=== PATIENT | female | born 1975 | race Caucasian/White ===

== ENCOUNTER 2021-09-14 13:31 | Inpatient (IN) | payer OTHER ==
[~2021-09-14] VITALS: Ht 154.9 cm; Wt 82.6 kg
[2021-09-14 13:56] LABS: BASOPHILS ABSOLUTE AUTO 0.01 K/mm3 (0.00-0.23); BASOPHILS PERCENT AUTO 0 % (0-2); EOSINOPHILS ABSOLUTE AUTO 0.19 K/mm3 (0.00-0.68); EOSINOPHILS PERCENT AUTO 2 % (0-6); Hematocrit 39.1 % (33.0-51.0); Hemoglobin 13.6 g/dL (11.5-16.0); IMMATURE GRAN ABSOLUTE AUTO 0.05 K/mm3 (0.00-0.10); IMMATURE GRAN PERCENT AUTO 1 % (0-1); LYMPHOCYTES ABSOLUTE AUTO 2.21 K/mm3 (0.84-5.20); LYMPHOCYTES PERCENT AUTO 23 % (21-46); MONOCYTES ABSOLUTE AUTO 1.62 K/mm3 (0.16-1.47); MONOCYTES PERCENT AUTO 17 % (4-13); Mean Corpuscular HGB 32.3 pg (26.0-34.0); Mean Corpuscular HGB Conc 34.8 g/dL (31.5-36.5); Mean Corpuscular Volume 93 fL (80-100); Mean Platelet Volume 11.9 fL (9.1-12.4); NEUTROPHILS ABSOLUTE AUTO 5.36 K/mm3 (1.96-9.15); NEUTROPHILS PERCENT AUTO 57 % (41-73); Platelet Count 61 K/mm3 (150-400); RDW Coefficient Variation 14.4 % (11.7-14.2); RDW Standard Deviation 49.4 fL (35.1-46.3); Red Blood Cell Count 4.21 M/mm3 (3.80-5.20); White Blood Cell Count 9.44 K/mm3 (4.00-11.30)
[2021-09-14 14:18] LABS: Alanine Aminotransfer (ALT/SGP 28 U/L (12-78); Albumin, Blood 2.3 g/dL (3.4-5.0); Albumin/Globulin Ratio 0.4 (0.8-1.8); Alk Phos 110 U/L (50-136); Anion Gap 20 mmol/L (6-16); Aspartate Aminotrans (AST/SGOT 102 U/L (12-37); Bilirubin, Total 8.5 mg/dL (0.1-1.0); Blood Urea Nitrogen 18 mg/dL (8-24); Bun/Creatinine Ratio 23.8 (12.0-20.0); CO2, Blood 18 mmol/L (21-32); Calcium, Blood 8.5 mg/dL (8.5-10.1); Chloride, Blood 94 mmol/L (98-108); Creatinine, Blood 0.76 mg/dL (0.40-1.00); Glomerular Filtration Rate >60 (60-); Glucose, Blood 187 mg/dL (70-99); Sodium, Blood 132 mmol/L (136-145); Total Protein, Blood 8.3 g/dL (6.4-8.2)
[2021-09-14 22:42] LABS: U Amphetamine Screen Not Detected; U Barbituate Screen Not Detected; U Benzodiazapine Screen Not Detected; U Buprenorphine Screen Not Detected; U Cannabinoids Screen DETECTED; U Cocaine Screen Not Detected; U Methadone Screen Not Detected; U Methamphetamine Screen Not Detected; U Opiates Screen Not Detected; U Oxycodone Screen Not Detected; U Phencyclidine Screen Not Detected; U Propoxyphene Screen Not Detected
[2021-09-15 01:17] LABS: Source, Urine Catheter
[2021-09-15 01:20] LABS: Appearance, Urine Clear (Clear); Bilirubin, Urine Neg (Neg); Blood, Urine Neg (Neg); Color, Urine Yellow (P-Yellow); Glucose Qualitative, Urine Neg (Neg); Ketones, Urine Neg (Neg); Leukocyte Esterase, Urine Neg (Neg); Nitrite, Urine Neg (Neg); Protein, Urine Neg (Neg); Specific Gravity, Urine 1.005 (1.003-1.022); Urobilinogen, Urine 2+ (Normal)
[2021-09-15 05:12] LABS: Hematocrit 36.4 % (33.0-51.0); Hemoglobin 12.7 g/dL (11.5-16.0); Mean Corpuscular HGB 32.6 pg (26.0-34.0); Mean Corpuscular HGB Conc 34.9 g/dL (31.5-36.5); Mean Corpuscular Volume 94 fL (80-100); Mean Platelet Volume 11.6 fL (9.1-12.4); RDW Coefficient Variation 14.6 % (11.7-14.2); RDW Standard Deviation 50.3 fL (35.1-46.3); Red Blood Cell Count 3.89 M/mm3 (3.80-5.20); White Blood Cell Count 6.58 K/mm3 (4.00-11.30)
[2021-09-15 05:52] LABS: Platelet Count 36 K/mm3 (150-400)
[2021-09-15 05:53] LABS: Alanine Aminotransfer (ALT/SGP 27 U/L (12-78); Albumin/Globulin Ratio 0.4 (0.8-1.8); Alk Phos 94 U/L (50-136); Anion Gap 11 mmol/L (6-16); Aspartate Aminotrans (AST/SGOT 89 U/L (12-37); Bilirubin, Total 6.4 mg/dL (0.1-1.0); Blood Urea Nitrogen 8 mg/dL (8-24); Bun/Creatinine Ratio 12.1 (12.0-20.0); CO2, Blood 25 mmol/L (21-32); Calcium, Blood 7.7 mg/dL (8.5-10.1); Chloride, Blood 104 mmol/L (98-108); Creatinine, Blood 0.66 mg/dL (0.40-1.00); Globulin, Blood 4.9 g/dL (2.2-4.0); Glomerular Filtration Rate >60 (60-); Glucose, Blood 80 mg/dL (70-99); Magnesium, Blood 2.1 mg/dL (1.6-2.4); Phosphorus, Blood 2.3 mg/dL (2.5-4.9); Sodium, Blood 140 mmol/L (136-145); Total Protein, Blood 6.9 g/dL (6.4-8.2)
--- NOTE | 2021-09-15 06:36 | NUR ---
SHIFT SUMMARY PT. AOX2 AND DISORIENTED, CONFUSED AND HAS HORRIBLE TREMORS UPON ARRIVAL TO THE UNIT. STAFF UNABLE TO REDIRECT PT AND PT. URINATED ON THE FLOOR, WITH THE BED ALARM SOUNDING. PT. PULLED OUT FA IV AND TELE MONITOR, WHILE ATTEMPTING TO PULLING OUT MATA CATH. PT. MUMBLING AND DELUSIONAL SINCE ARRIVING ON THE UNIT. PT. MEDICATED PER EMAR AND CURRENTLY IN SOFT RESTRAINTS AT THE WRIST. PT. HAS NOT SLEPT ALL SHIFT AND CONTINUES TO PULL ON RESTRAINTS AT THE MOMENT. WILL CONTINUE TO MONITOR UNTIL REPORT IS GIVEN.
[2021-09-15 07:39] LABS: BAND PERCENT MAN 1 % (0-8); BASOPHILS ABSOLUTE MAN 0.06 K/mm3 (0.00-0.23); BASOPHILS PERCENT MAN 1 % (0-2); EOSINOPHILS PERCENT MAN 0 % (0-6); LYMPHOCYTES PERCENT MAN 38 % (21-46); MONOCYTES ABSOLUTE MAN 0.65 K/mm3 (0.16-1.47); MONOCYTES PERCENT MAN 10 % (4-13); NEUTROPHILS ABSOLUTE MAN 3.35 K/mm3 (1.96-9.15); SEG NEUTROPHILS PERCENT MAN 50 % (41-73); TOTAL CELLS COUNTED 100
--- NOTE | 2021-09-15 17:21 | NUR ---
PT AOX2-3 WITH CONFUSION AND DISORIENTATION. PT HAS BEEN A 10 ON HER CIWAs ON IS TREATED PER EMAR AT THIS TIME FOR HER ETOH WITHDRAWL. THIS CHEMICAL ENGINEERING INTERN HAS BEEN ABLE TO REDIRECT PT WITH FREQUENT ROOM CHECKS. PT PERIODICALLY WILL TRY TO GET OUT OF BED STATING IT IS TIME TO GET UP. BED ALARM IS IN PLACE AND CALL LIGHT WITHIN REACH WILL CONTINUE TO MONITOR.
--- NOTE | 2021-09-15 20:40 | NUR ---
PT. WAS AOX1 AND WRIST RESTRAINTS NOT IN PLACE AT THE START OF THIS SHIFT. STAFF MAKING ROUNDS FOUND PT. STANDING ON BED DELUSIONAL YELLING FOR THEIR MOM, WHILE ATTEMPTING TO PULL OF THE 4TH IV PLACED. PT. DISORIENTED AND HAS INCREASED CONFUSION. WATER AND REPOSITIONING WERE COMPLETE DURING THIS TIME. CHARGE NURSE CALLED LORENA ARAUJO FOR VEST RESTRAINT TO PROTECT THE PT. FROM SELF HARM. SAFETY PRECAUTIONS IN PLACE PER PROTOCOL AND MEDICATED PER EMAR. THIS NURSE WILL CONTINUE TO MONITOR.
[2021-09-15] MEDS ORDERED: Naltrexone HCl50 MG PO (22:43)
[2021-09-15] MEDS ORDERED: OMEP20ER PO (22:55)
[2021-09-15] MEDS ORDERED: Inderal 20 mg T20 MG PO (22:55)
[2021-09-15] MEDS ORDERED: GABA300 PO (22:56)
[2021-09-15] MEDS ORDERED: HYDPAM50 PO (22:57)
--- NOTE | 2021-09-15 23:27 | NUR ---
PT. DELUSIONAL AND HEARING VOICES WHILE RESPONDING TO SELF OUT LOUD. PT. HAS BEEN THIRSTY AND TOLERATING WATER WELL THIS SHIFT. RESTRAINT MANAGEMENT IN PLACE AND BEING COMPLETED THIS SHIFT. PT. ASKED THIS NURSE ABOUT "ALL THE BUNNIES ARE JUMPING ON ME, DO YOU SEE HIM ON THE CHAIR?" PT. NOT ABLE TO BE REDIRECTED AND STILL ATTEMPTING TO BITE RESTRAINTS. THIS NURSE WILL CONTINUE TO MONITOR.
[2021-09-16 05:03] LABS: BASOPHILS ABSOLUTE AUTO 0.04 K/mm3 (0.00-0.23); BASOPHILS PERCENT AUTO 1 % (0-2); EOSINOPHILS ABSOLUTE AUTO 0.07 K/mm3 (0.00-0.68); EOSINOPHILS PERCENT AUTO 2 % (0-6); Hematocrit 34.8 % (33.0-51.0); Hemoglobin 11.8 g/dL (11.5-16.0); IMMATURE GRAN ABSOLUTE AUTO 0.01 K/mm3 (0.00-0.10); IMMATURE GRAN PERCENT AUTO 0 % (0-1); LYMPHOCYTES ABSOLUTE AUTO 1.17 K/mm3 (0.84-5.20); LYMPHOCYTES PERCENT AUTO 26 % (21-46); MONOCYTES ABSOLUTE AUTO 0.74 K/mm3 (0.16-1.47); MONOCYTES PERCENT AUTO 16 % (4-13); Mean Corpuscular HGB 32.1 pg (26.0-34.0); Mean Corpuscular HGB Conc 33.9 g/dL (31.5-36.5); Mean Corpuscular Volume 95 fL (80-100); Mean Platelet Volume 10.1 fL (9.1-12.4); NEUTROPHILS ABSOLUTE AUTO 2.54 K/mm3 (1.96-9.15); NEUTROPHILS PERCENT AUTO 56 % (41-73); RDW Coefficient Variation 14.3 % (11.7-14.2); RDW Standard Deviation 49.8 fL (35.1-46.3); Red Blood Cell Count 3.68 M/mm3 (3.80-5.20); White Blood Cell Count 4.57 K/mm3 (4.00-11.30)
[2021-09-16 05:28] LABS: Platelet Count 35 K/mm3 (150-400)
[2021-09-16 06:49] LABS: Alanine Aminotransfer (ALT/SGP 29 U/L (12-78); Albumin, Blood 1.9 g/dL (3.4-5.0); Albumin/Globulin Ratio 0.5 (0.8-1.8); Alk Phos 94 U/L (50-136); Anion Gap 9 mmol/L (6-16); Aspartate Aminotrans (AST/SGOT 88 U/L (12-37); Bilirubin, Total 4.5 mg/dL (0.1-1.0); Blood Urea Nitrogen 4 mg/dL (8-24); Bun/Creatinine Ratio 6.2 (12.0-20.0); CO2, Blood 26 mmol/L (21-32); Calcium, Blood 8.2 mg/dL (8.5-10.1); Chloride, Blood 107 mmol/L (98-108); Creatinine, Blood 0.64 mg/dL (0.40-1.00); Globulin, Blood 4.2 g/dL (2.2-4.0); Glomerular Filtration Rate >60 (60-); Glucose, Blood 119 mg/dL (70-99); Magnesium, Blood 1.7 mg/dL (1.6-2.4); Phosphorus, Blood 2.2 mg/dL (2.5-4.9); Potassium, Blood 3.2 mmol/L (3.5-5.5); Sodium, Blood 142 mmol/L (136-145); Total Protein, Blood 6.1 g/dL (6.4-8.2)
--- NOTE | 2021-09-16 06:59 | NUR ---
SHIFT SUMMMARY PT AOX1 AND VERY CONFUSED ONCE STAFF WAS ABLE TO GET THE PT. DOWN FROM STANDING ON THE BED. CIWA SCORES HAVE BE INCREASING THIS SHIFT WELL BEHAVIORS. PT HAS HAD CONVERSATIONS WITH SELF AND SEEING DIFFERENT ANIMALS IN THEIR ROOM. UNABLE TO REDIRECT TWO ORDERS GIVEN BY LORENA ARAUJO FOR RESTRAINTS SEE CHART. PT. HAS PULLED F/C UNTIL SMALL DROPS OF BLOOD WAS FOUND IN HER BRIEF. CHARGE NURSE AND OTHER STAFF WAS ABLE TO HELP GET THE PT. SETTLED ALL SHIFT. PT. STILL DELUSIONAL AND VERY DROWSY BUT ACTIVELY PULLING ON HER IV. REPORT TO BE GIVEN.
--- NOTE | 2021-09-16 13:06 | NUR ---
ASSUMED CARE OF PT MOVED TO ROOM 347 IN SCU. VERIFIED MOVE WITH TELE. PER TELE PT IN SR AT 67. REPORT RECEIVED FROM RAMAN LEMOS. PT IN MUNIRA VEST, ARM RESTRAINTS WITH IV RUNNING NS AT 125 ML/HR. PT AWAKENS TO VERBAL STIMULI AND ASKS WHERE SHE IS AND WHO I AM. SHE HAS NO SIGNS OF DISTRESS AT THIS TIME, CIRCULATION CHECK COMPLETED. MATA DRAINING CLEAR YELLOW URINE.
--- NOTE | 2021-09-16 13:27 | NUR ---
PT MOVED TO ROOM 347. REPORT GIVEN TO RICHA LEMOS
--- NOTE | 2021-09-16 21:45 | NUR ---
PT ARRIVED TO ICU RM 7 AT 2100 FROM MED FLOOR. PT DROWSY, EASILY AROUSABLE. ORIENTED TO SELF AND PLACE, DISORIENTED TO DATE AND EVENT. PT FOLLOWING COMMANDS, CALM AND COOPERATIVE WITH CARE. BILATERAL WRIST RESTRAINTS IN PLACE TO PREVENT REMOVAL OF LINES/DRAINS. LUNGS CLEAR, ON RA WITH SPO2 >90%. ACTIVE BOWEL TONES. MATA PATENT AND DRAINING TO GRAVITY. SCATTERED BRUISING NOTED TO BUE. HR 70'S SINUS ON MONITOR, SBP 90'S. PT CAME TO UNIT WITH BANANA BAG INFUSING AT 200 ML/HR AND NS AT 125 ML/HR. CIWA 8.
--- NOTE | 2021-09-16 21:55 | NUR ---
TRANSFER NOTE HANDOFF GIVEN TO LONE LEAD LINEMAN AMEBR. PT TRANSFERED TO ICU FLOOR VIA [facility]JO. PERSONAL POSSESSIONS WITH PT.
--- NOTE | 2021-09-17 05:57 | NUR ---
SHIFT SUMMARY PT ORIENTED TO SELF, PLACE, AND EVENT; CONTINUES TO BE CONFUSED ABOUT DATE. PT REMAINS IMPULSIVE ATTEMPTING TO GET OUT OF BED AND PULL AT LINES/MATA, REDIRECTABLE AT TIMES. HR 60-70'S SINUS ON MONITOR, SBP 115'S. 2L NC USED TO MAINTAIN SP02 >90% WHILE ASLEEP. PT EASILY AROUSES TO VERBAL STIMULI. LIBRIUM GIVEN X2 THIS SHIFT PER ZARINA. MATA PATENT AND DRAINING CLEAR YELLOW URINE TO GRAVITY. NS INFUSING AT 125 ML/HR.
--- NOTE | 2021-09-17 07:00 | NUR ---
ASSUME CARE: I have assumed care of pt. At this time she is resting in bed on 2L NC with restraints in place.
[2021-09-17 10:09] LABS: BASOPHILS ABSOLUTE AUTO 0.04 K/mm3 (0.00-0.23); BASOPHILS PERCENT AUTO 1 % (0-2); Hemoglobin 13.8 g/dL (11.5-16.0); IMMATURE GRAN ABSOLUTE AUTO 0.01 K/mm3 (0.00-0.10); IMMATURE GRAN PERCENT AUTO 0 % (0-1); MONOCYTES PERCENT AUTO 16 % (4-13); Mean Corpuscular HGB 31.9 pg (26.0-34.0); Mean Corpuscular HGB Conc 32.9 g/dL (31.5-36.5); Mean Corpuscular Volume 97 fL (80-100); RDW Coefficient Variation 14.6 % (11.7-14.2); RDW Standard Deviation 51.3 fL (35.1-46.3); Red Blood Cell Count 4.32 M/mm3 (3.80-5.20); White Blood Cell Count 4.49 K/mm3 (4.00-11.30)
[2021-09-17 10:11] LABS: EOSINOPHILS ABSOLUTE AUTO 0.16 K/mm3 (0.00-0.68); EOSINOPHILS PERCENT AUTO 4 % (0-6); LYMPHOCYTES ABSOLUTE AUTO 1.37 K/mm3 (0.84-5.20); LYMPHOCYTES PERCENT AUTO 30 % (21-46); NEUTROPHILS ABSOLUTE AUTO 2.25 K/mm3 (1.96-9.15); NEUTROPHILS PERCENT AUTO 50 % (41-73)
[2021-09-17 10:46] LABS: Alanine Aminotransfer (ALT/SGP 33 U/L (12-78); Albumin, Blood 2.3 g/dL (3.4-5.0); Albumin/Globulin Ratio 0.4 (0.8-1.8); Alk Phos 106 U/L (50-136); Anion Gap 10 mmol/L (6-16); Aspartate Aminotrans (AST/SGOT 91 U/L (12-37); Bilirubin, Total 4.6 mg/dL (0.1-1.0); Blood Urea Nitrogen 3 mg/dL (8-24); Bun/Creatinine Ratio 4.6 (12.0-20.0); CO2, Blood 27 mmol/L (21-32); Calcium, Blood 8.4 mg/dL (8.5-10.1); Chloride, Blood 106 mmol/L (98-108); Creatinine, Blood 0.65 mg/dL (0.40-1.00); Globulin, Blood 5.2 g/dL (2.2-4.0); Glomerular Filtration Rate >60 (60-); Glucose, Blood 120 mg/dL (70-99); Potassium, Blood 3.2 mmol/L (3.5-5.5); Sodium, Blood 143 mmol/L (136-145); Total Protein, Blood 7.5 g/dL (6.4-8.2)
[2021-09-17 10:55] LABS: Mean Platelet Volume 10.8 fL (9.1-12.4); Platelet Count 44 K/mm3 (150-400)
--- NOTE | 2021-09-17 18:08 | NUR ---
END OF SHIFT SUMMARY: Pt intermittantly alert and oriented to place and event; consistantly oriented to self. She was up in the chair for much of the day. Bilateral wrist restraints were discontinued as pt was redirectable with hands. Vest restraint was left in place as she attempted to get up several times out of the chair and bed. Pt was calm, cooperative, and rediarectable today. Two 25mg doses of PRN librium given today for CIWA scores between 8-15. Precedex was not needed.
--- NOTE | 2021-09-17 19:22 | NUR ---
ASSUMPTION OF CARE ASSUMED CARE OF PT AT 1900, REPORT RECEIVED FROM EDEN LEMOS. PT DROWSY, EASILY AROUSABLE TO VERBAL STIMULI. ORIENTED TO SELF AND EVENT, SLOW TO RESPOND. FOLLOWS COMMANDS. CURRENTLY INFUSING NS AT 125 ML/HR, BANANA BAG AT 200 ML/HR, AND K RIDER. MATA PATENT AND DRAINING TO GRAVITY. HR 50-60'S SINUS ON MONITOR, SBP 140'S.
[2021-09-18 03:58] LABS: BASOPHILS ABSOLUTE AUTO 0.04 K/mm3 (0.00-0.23); BASOPHILS PERCENT AUTO 1 % (0-2); EOSINOPHILS ABSOLUTE AUTO 0.15 K/mm3 (0.00-0.68); EOSINOPHILS PERCENT AUTO 4 % (0-6); Hematocrit 35.8 % (33.0-51.0); Hemoglobin 12.1 g/dL (11.5-16.0); IMMATURE GRAN ABSOLUTE AUTO 0.01 K/mm3 (0.00-0.10); IMMATURE GRAN PERCENT AUTO 0 % (0-1); LYMPHOCYTES ABSOLUTE AUTO 1.29 K/mm3 (0.84-5.20); LYMPHOCYTES PERCENT AUTO 34 % (21-46); MONOCYTES ABSOLUTE AUTO 0.66 K/mm3 (0.16-1.47); MONOCYTES PERCENT AUTO 17 % (4-13); Mean Corpuscular HGB 32.4 pg (26.0-34.0); Mean Corpuscular HGB Conc 33.8 g/dL (31.5-36.5); Mean Corpuscular Volume 96 fL (80-100); Mean Platelet Volume 10.7 fL (9.1-12.4); NEUTROPHILS ABSOLUTE AUTO 1.65 K/mm3 (1.96-9.15); NEUTROPHILS PERCENT AUTO 43 % (41-73); RDW Coefficient Variation 14.7 % (11.7-14.2); RDW Standard Deviation 51.3 fL (35.1-46.3); Red Blood Cell Count 3.74 M/mm3 (3.80-5.20)
[2021-09-18 04:24] LABS: Platelet Count 41 K/mm3 (150-400)
[2021-09-18 04:29] LABS: Alanine Aminotransfer (ALT/SGP 31 U/L (12-78); Albumin, Blood 1.8 g/dL (3.4-5.0); Albumin/Globulin Ratio 0.4 (0.8-1.8); Alk Phos 85 U/L (50-136); Anion Gap 5 mmol/L (6-16); Aspartate Aminotrans (AST/SGOT 78 U/L (12-37); Bilirubin, Total 3.4 mg/dL (0.1-1.0); Blood Urea Nitrogen 3 mg/dL (8-24); Bun/Creatinine Ratio 4.2 (12.0-20.0); CO2, Blood 28 mmol/L (21-32); Chloride, Blood 110 mmol/L (98-108); Creatinine, Blood 0.72 mg/dL (0.40-1.00); Globulin, Blood 4.6 g/dL (2.2-4.0); Glomerular Filtration Rate >60 (60-); Glucose, Blood 116 mg/dL (70-99); Magnesium, Blood 1.6 mg/dL (1.6-2.4); Phosphorus, Blood 3.3 mg/dL (2.5-4.9); Potassium, Blood 3.4 mmol/L (3.5-5.5); Sodium, Blood 143 mmol/L (136-145); Thyroid Stimulating Hormone 0.952 uIU/mL (0.360-4.800); Total Protein, Blood 6.4 g/dL (6.4-8.2)
--- NOTE | 2021-09-18 05:54 | NUR ---
SHIFT SUMMARY PT SLEPT MAJORITY OF SHIFT, AROUSABLE TO VERBAL STIMULI. ORIENTED TO SELF, PLACE AND EVENT. WEAKNESS NOTED IN ALL EXTREMITIES. MUNIRA VEST REMAINS IN PLACE FOR SAFETY. PT FREQUENTLY MOVES SELF AROUND IN BED. 1L NC TO MAINTAIN SPO2 >90% WHILE ASLEEP. PT ON CAMERA TO PREVENT REMOVAL OF LINES/DRAINS. MATA PATENT AND DRAINING YELLOW URINE TO GRAVITY. NO BM THIS SHIFT, ACTIVE BOWEL TONES.
--- NOTE | 2021-09-18 07:00 | NUR ---
ASSUME CARE: I have assumed care of pt. At this time she is resting in bed with vest restraint in place.
--- NOTE | 2021-09-18 14:21 | NUR ---
UPDATE: Pt up to medical floor with DIRECTOR OF CAMPUS RECREATION via bed. Report was called to AMINTA Maher. Milk of mag given prior to pt leaving per her request during report.
--- NOTE | 2021-09-18 15:30 | NUR ---
ARRIVES FROM ICU AROUND 1430. SLIDER USED TO TRANSFER. PATIENT DROWSEY. BRUISING UPPER EXT AND LEFT BREAST. LUNGS CLEAR. CIWA 9. MEDS GIVEN. ALERT TO SELF, FAMILY AND WHERE SHE IS. COOPERATIVE AT THIS TIME. DAUGHTER IS RIDE HOME AND SHE LIVES IN [place]. NO OBVIOUS TREMORS. STS HAS HIGH ANXIETY NORMALLY. USES OXYGEN AT NIGHT. [facility]
[2021-09-19 04:44] LABS: BASOPHILS ABSOLUTE AUTO 0.05 K/mm3 (0.00-0.23); BASOPHILS PERCENT AUTO 1 % (0-2); EOSINOPHILS ABSOLUTE AUTO 0.15 K/mm3 (0.00-0.68); EOSINOPHILS PERCENT AUTO 3 % (0-6); Hematocrit 37.6 % (33.0-51.0); Hemoglobin 12.7 g/dL (11.5-16.0); IMMATURE GRAN ABSOLUTE AUTO 0.01 K/mm3 (0.00-0.10); IMMATURE GRAN PERCENT AUTO 0 % (0-1); LYMPHOCYTES ABSOLUTE AUTO 1.37 K/mm3 (0.84-5.20); LYMPHOCYTES PERCENT AUTO 30 % (21-46); MONOCYTES ABSOLUTE AUTO 0.88 K/mm3 (0.16-1.47); MONOCYTES PERCENT AUTO 19 % (4-13); Mean Corpuscular HGB 32.1 pg (26.0-34.0); Mean Corpuscular HGB Conc 33.8 g/dL (31.5-36.5); Mean Corpuscular Volume 95 fL (80-100); NEUTROPHILS ABSOLUTE AUTO 2.19 K/mm3 (1.96-9.15); NEUTROPHILS PERCENT AUTO 47 % (41-73); RDW Standard Deviation 52.1 fL (35.1-46.3); Red Blood Cell Count 3.96 M/mm3 (3.80-5.20); White Blood Cell Count 4.65 K/mm3 (4.00-11.30)
[2021-09-19 04:52] LABS: Platelet Count 48 K/mm3 (150-400)
[2021-09-19 04:58] LABS: Alanine Aminotransfer (ALT/SGP 29 U/L (12-78); Albumin, Blood 1.8 g/dL (3.4-5.0); Albumin/Globulin Ratio 0.4 (0.8-1.8); Alk Phos 88 U/L (50-136); Anion Gap 6 mmol/L (6-16); Aspartate Aminotrans (AST/SGOT 75 U/L (12-37); Bilirubin, Total 3.3 mg/dL (0.1-1.0); Blood Urea Nitrogen 5 mg/dL (8-24); Bun/Creatinine Ratio 8.2 (12.0-20.0); CO2, Blood 28 mmol/L (21-32); Calcium, Blood 8.9 mg/dL (8.5-10.1); Chloride, Blood 108 mmol/L (98-108); Creatinine, Blood 0.61 mg/dL (0.40-1.00); Globulin, Blood 4.7 g/dL (2.2-4.0); Glomerular Filtration Rate >60 (60-); Glucose, Blood 101 mg/dL (70-99); Magnesium, Blood 1.7 mg/dL (1.6-2.4); Phosphorus, Blood 3.6 mg/dL (2.5-4.9); Potassium, Blood 3.9 mmol/L (3.5-5.5); Sodium, Blood 142 mmol/L (136-145); Total Protein, Blood 6.5 g/dL (6.4-8.2)
--- NOTE | 2021-09-19 05:42 | NUR ---
PT. AOX2 AND TRYING TO GET OUT OF BED AT THE START OF THIS SHIFT. ALSO, THROUGHOUT THIS SHIFT PT. TRIED TO UNTIE BOTH SIDES OF THEIR RESTRAINTS AND PULLING AT IV. PT. NOT EASY TO REDIRECT AT TIMES AND MEDICATED PER EMAR FOR ANXIETY AND AGITATION. PT. DID REST SOME THIS SHIFT AND THIS NURSE WILL CONTINUE TO MONITOR UNTIL REPORT IS GIVEN.
--- NOTE | 2021-09-19 18:08 | NUR ---
SHIFT SUMMARY PATIENT CURRENTLY SLEEPING IN BED UNABLE TO ROUSE FOR DINNER. PATIENT HAS SLEPT A LOT OF THE DAY, WAKING UP BRIEFLY TO SIT UP IN CHAIR FOR BREAKFAST AND LUNCH. PATIENT DID NOT HAVE A BIG APPETITE TODAY. PATIENT IS SLOW TO RESPOND, HAS SLIGHT TREMORS AND DIFFICULTY PICKING THINGS UP. PATIENT PULLED IV OUT EARLY IN SHIFT. VITAL SIGNS STABLE. WILL CONTINUE TO MONITOR.
--- NOTE | 2021-09-20 04:19 | NUR ---
PT WAS ASLEEP AT THE START OF THIS SHIFT BUT DID WAKE UP TO FINISH DINNER. PT. WAS MEDICATED PER EMAR WITH IMPROVED CIWA SCORES THIS SHIFT. PT. BEHAVIORS WERE IMPROVED ALSO AND THE PT SLEPT MOST OF THIS SHIFT. PT WAS EASY TO REDIRECT AND THIS NURSE WILL CONTINUE TO MONITOR UNTIL REPORT IS GIVEN.
[2021-09-20 09:37] LABS: Hematocrit 44.9 % (33.0-51.0); Hemoglobin 14.7 g/dL (11.5-16.0); Mean Corpuscular HGB 31.9 pg (26.0-34.0); Mean Corpuscular HGB Conc 32.7 g/dL (31.5-36.5); Mean Corpuscular Volume 97 fL (80-100); Mean Platelet Volume 9.9 fL (9.1-12.4); Platelet Count 69 K/mm3 (150-400); RDW Coefficient Variation 15.4 % (11.7-14.2); RDW Standard Deviation 54.8 fL (35.1-46.3); Red Blood Cell Count 4.61 M/mm3 (3.80-5.20); White Blood Cell Count 5.61 K/mm3 (4.00-11.30)
[2021-09-20 10:29] LABS: Alanine Aminotransfer (ALT/SGP 30 U/L (12-78); Albumin, Blood 2.2 g/dL (3.4-5.0); Albumin/Globulin Ratio 0.4 (0.8-1.8); Alk Phos 95 U/L (50-136); Anion Gap 8 mmol/L (6-16); Aspartate Aminotrans (AST/SGOT 81 U/L (12-37); Bilirubin, Total 4.4 mg/dL (0.1-1.0); Blood Urea Nitrogen 6 mg/dL (8-24); Bun/Creatinine Ratio 8.7 (12.0-20.0); CO2, Blood 28 mmol/L (21-32); Calcium, Blood 9.2 mg/dL (8.5-10.1); Chloride, Blood 104 mmol/L (98-108); Creatinine, Blood 0.69 mg/dL (0.40-1.00); Glomerular Filtration Rate >60 (60-); Glucose, Blood 115 mg/dL (70-99); Magnesium, Blood 1.7 mg/dL (1.6-2.4); Phosphorus, Blood 4.4 mg/dL (2.5-4.9); Sodium, Blood 140 mmol/L (136-145); Total Protein, Blood 7.2 g/dL (6.4-8.2)
[2021-09-20 10:39] LABS: BASOPHILS ABSOLUTE MAN 0.05 K/mm3 (0.00-0.23); BASOPHILS PERCENT MAN 1 % (0-2); EOSINOPHILS ABSOLUTE MAN 0.16 K/mm3 (0.00-0.68); EOSINOPHILS PERCENT MAN 3 % (0-6); LYMPHOCYTES ABSOLUTE MAN 2.18 K/mm3 (0.84-5.20); LYMPHOCYTES PERCENT MAN 39 % (21-46); MONOCYTES ABSOLUTE MAN 0.72 K/mm3 (0.16-1.47); MONOCYTES PERCENT MAN 13 % (4-13); NEUTROPHILS ABSOLUTE MAN 2.46 K/mm3 (1.96-9.15); SEG NEUTROPHILS PERCENT MAN 44 % (41-73); TOTAL CELLS COUNTED 100
--- NOTE | 2021-09-20 16:44 | NUR ---
DISCHARGE SUMMARY PT DISCHARGED HOME WITH BELONGINGS. TRANSFERED FROM ROOM BY WHEELCHAIR TO [facility] BY NURSE. ALL BELONGINGS WITH PT. DAUGHTER CAME TO PROVIDE RIDE TO PT WHO WILL BE STAYING WITH ONE OF HER DAUGHTERS FOR CARE. MATA REMOVED PRIOR TO DISCHARGE, AND DISCHARGE PAPERWORK/EDUCATION GONE OVER WITH PT. NO NEW MEDS. PT TO MAKE APPOINTMENT WITH PCP. PT TO SEEK REFERRAL FROM PCP FOR AN OUTPATIENT ALCOHOL DETOX PROGRAM.
== END 2021-09-20 15:35 | disposition home or self-care (01) | DRG 896 ==
LOC: ER 13:31 → ERHOLD 16:11 → MEDS 21:05 → ICUE 09-16 21:11 → MEDS 09-18 13:47
PROVIDERS: Emergency Medicine; ADMIT Family Medicine
DX: F10.230 Alcohol dependence with withdrawal, uncomplicated (principal); G93.41 Metabolic encephalopathy; E87.1 Hypo-osmolality and hyponatremia; E87.6 Hypokalemia; I10 Essential (primary) hypertension; K70.30 Alcoholic cirrhosis of liver without ascites; D69.6 Thrombocytopenia, unspecified; D72.819 Decreased white blood cell count, unspecified; E88.09 Other disorders of plasma-protein metabolism, not elsewhere classified; E11.65 Type 2 diabetes mellitus with hyperglycemia; Z87.891 Personal history of nicotine dependence; Z78.1 Physical restraint status; Y90.0 Blood alcohol level of less than 20 mg/100 ml
CPT/HCPCS: 36415; 80053; 81003; 82140; 82947; 83690; 83735; 84100; 84145; 84443; 85025; 93005; 93010; 94760; 94762; 96374; 96375; 96376; 99285-25; A9270; G0378; G0480; J2060; J2405; J3411; J3475; J3480; J7030; J7042; J7060

== ENCOUNTER 2021-12-14 21:09 | Inpatient (IN) | payer OTHER ==
[~2021-12-14] VITALS: Ht 162.6 cm; Wt 88.6 kg
[~2021-12-14 21:09] MED LIST: GABA300 PO; HYDPAM50 PO; Inderal 20 mg T20 MG PO; Naltrexone HCl50 MG PO; OMEP20ER PO
[2021-12-14 22:10] LABS: BASOPHILS ABSOLUTE AUTO 0.03 K/mm3 (0.00-0.23); BASOPHILS PERCENT AUTO 1 % (0-2); EOSINOPHILS ABSOLUTE AUTO 0.07 K/mm3 (0.00-0.68); EOSINOPHILS PERCENT AUTO 2 % (0-6); Hematocrit 33.5 % (33.0-51.0); Hemoglobin 11.4 g/dL (11.5-16.0); IMMATURE GRAN ABSOLUTE AUTO 0.01 K/mm3 (0.00-0.10); IMMATURE GRAN PERCENT AUTO 0 % (0-1); LYMPHOCYTES ABSOLUTE AUTO 1.38 K/mm3 (0.84-5.20); LYMPHOCYTES PERCENT AUTO 35 % (21-46); MONOCYTES ABSOLUTE AUTO 0.81 K/mm3 (0.16-1.47); MONOCYTES PERCENT AUTO 20 % (4-13); Mean Corpuscular HGB 31.7 pg (26.0-34.0); Mean Corpuscular Volume 93 fL (80-100); NEUTROPHILS ABSOLUTE AUTO 1.67 K/mm3 (1.96-9.15); NEUTROPHILS PERCENT AUTO 42 % (41-73); NRBC ABSOLUTE 0.02 K/mm3 (0.00-0.02); NRBC Auto 0.5 /100 WBC (0.0-0.2); RDW Coefficient Variation 15.4 % (11.7-14.2); RDW Standard Deviation 53.3 fL (35.1-46.3); White Blood Cell Count 3.97 K/mm3 (4.00-11.30)
[2021-12-14 22:15] LABS: Platelet Count 21 K/mm3 (150-400)
[2021-12-14 22:28] LABS: Alanine Aminotransfer (ALT/SGP 28 U/L (12-78); Albumin, Blood 2.2 g/dL (3.4-5.0); Albumin/Globulin Ratio 0.5 (0.8-1.8); Alk Phos 109 U/L (50-136); Anion Gap 7 mmol/L (6-16); Aspartate Aminotrans (AST/SGOT 99 U/L (12-37); Bilirubin, Total 4.9 mg/dL (0.1-1.0); Blood Urea Nitrogen 11 mg/dL (8-24); Bun/Creatinine Ratio 9.6 (12.0-20.0); CO2, Blood 29 mmol/L (21-32); Calcium, Blood 9.6 mg/dL (8.5-10.1); Chloride, Blood 99 mmol/L (98-108); Creatinine, Blood 1.15 mg/dL (0.40-1.00); Ethanol (Alcohol), Blood, Med <3 mg/dL; Globulin, Blood 4.8 g/dL (2.2-4.0); Glomerular Filtration Rate 50 (60-); Glucose, Blood 151 mg/dL (70-99); Potassium, Blood 3.6 mmol/L (3.5-5.5); Sodium, Blood 135 mmol/L (136-145)
[2021-12-15 04:57] LABS: Hematocrit 35.2 % (33.0-51.0); Mean Corpuscular HGB 31.7 pg (26.0-34.0); Mean Corpuscular HGB Conc 34.1 g/dL (31.5-36.5); Mean Corpuscular Volume 93 fL (80-100); Mean Platelet Volume 11.1 fL (9.1-12.4); NRBC ABSOLUTE 0.02 K/mm3 (0.00-0.02); NRBC Auto 0.7 /100 WBC (0.0-0.2); RDW Coefficient Variation 15.5 % (11.7-14.2); RDW Standard Deviation 53.4 fL (35.1-46.3); Red Blood Cell Count 3.78 M/mm3 (3.80-5.20); White Blood Cell Count 2.75 K/mm3 (4.00-11.30)
[2021-12-15 05:05] LABS: Platelet Count 15 K/mm3 (150-400)
--- NOTE | 2021-12-15 05:17 | NUR ---
PT ARRIVED TO ICU RM 10, ALERT, ORIENTED TO SELF ONLY, CONFUSED, AND HALLUCINATING WITH RAMBLING CONVERSATION. PT IS ASKING FOR HER PURSE, CONFIRMED W ER THAT NO PERSONAL BELONGINGS CAME W PT FROM [facility]. BED ALARM ACTIVATED AND RAILS UP X4. MEDICATED W LIBRIUM, SWALLOWED WO DIFF. NOTED W MODERATE TREMORS AND VERY FORGETFUL, STATES SHE WANTS TO GO HOME. VSS, MONITOR SHOWS NSR.
[2021-12-15 05:43] LABS: Alanine Aminotransfer (ALT/SGP 29 U/L (12-78); Albumin, Blood 2.2 g/dL (3.4-5.0); Albumin/Globulin Ratio 0.4 (0.8-1.8); Alk Phos 117 U/L (50-136); Anion Gap 6 mmol/L (6-16); Aspartate Aminotrans (AST/SGOT 96 U/L (12-37); Bilirubin, Total 5.3 mg/dL (0.1-1.0); Blood Urea Nitrogen 9 mg/dL (8-24); Bun/Creatinine Ratio 9.6 (12.0-20.0); CO2, Blood 28 mmol/L (21-32); Calcium, Blood 9.3 mg/dL (8.5-10.1); Chloride, Blood 102 mmol/L (98-108); Creatinine, Blood 0.94 mg/dL (0.40-1.00); Globulin, Blood 4.9 g/dL (2.2-4.0); Glomerular Filtration Rate >60 (60-); Glucose, Blood 212 mg/dL (70-99); Potassium, Blood 3.6 mmol/L (3.5-5.5); Sodium, Blood 136 mmol/L (136-145); Total Protein, Blood 7.1 g/dL (6.4-8.2)
--- NOTE | 2021-12-15 10:30 | NUR ---
UPDATE: ISTRATE ROUNDING. NICOLE PUENTES IN [place] CALLED FOR A RECORDS REQUEST. AWAITING FAX ARRIVAL. PT CONTINUES TO BE SOMNOLENT, BARELY OPENS EYES TO NAME, RR EVEN & UNLABORED. MOANS IN RESPONSE. UNABLE TO FOLLOW COMMANDS. SWB IN PLACE. +BED ALARM. ISTRATE @ BEDSIDE FOR AM ROUNDS. DISCUSSED CONCERNS FOR PT's DEC WBC & DECREASING PLATELETS. NO NEW ORDERS GIVEN. PLAN TO CONTINUE ICU STATUS D/T HIGH CIWAs.
[2021-12-15] MEDS ORDERED: B COMPLEX WITH1 EACH PO (11:27)
[2021-12-15] MEDS ORDERED: VITAMIN D325 MC3 PO (11:27)
[2021-12-15] MEDS ORDERED: LACT10SY PO (11:33)
[2021-12-15] MEDS ORDERED: Vistaril50 MG PO (11:33)
[2021-12-15] MEDS ORDERED: LATUDA120 MG PO (11:37)
[2021-12-15] MEDS ORDERED: [UNRECOGNIZED DRUG - CODE] SS (11:38)
[2021-12-15 12:56] LABS: Magnesium, Blood 1.7 mg/dL (1.6-2.4); Phosphorus, Blood 2.6 mg/dL (2.5-4.9)
--- NOTE | 2021-12-15 13:40 | NUR ---
UPDATE: PT MEDICATED FOR CIWA OF 23. PT ABLE TO TAKE LIBRIUM PO W/ SOME COACHING. PT NOW ABLE TO FORM WORDS W/ MORE CLARITY, THOUGH SPEECH IS GROSSLY SLURRED. ABLE TO STATE A CLEAR YES/NO. CONTINUES TO SPEAK & INTERACT W/ UNSEEN STIMULI. ATTEMPTED TO TRIAL PT OFF RESTRAINTS WHILE RN AT BEDSIDE. PT IMMEDIATELY BEGAN TO PULL @ EQUIP & ATTEMPT TO GET OUT OF BED; UNABLE TO BE REDIRECTED TO SAFE BEHAVIORS, SWB's REPLACED.
--- NOTE | 2021-12-15 15:32 | NUR ---
Patient is lying in bed and alert. Patient mumbles but says very few words clearly. I ask pt if I could pray for her and she clearly says, "Yes." I gladly provide prayer. After I finish praying, pt reaches out toward me and says, "pull" while she looks at the restraints on her wrists. I explain that the restraints are in place for her safety and that I do not have the authority to remove them. Pt no longer attempts to communicate with me. I will continue to remain available to pt and family.
--- NOTE | 2021-12-15 17:17 | NUR ---
PT RESTLESS IN BED. CONTINUES TO REPOSITION SELF IN BED & PULL @ RESTRAINTS WHEN DISTURBED. SPEAKS SOME WORDS CLEARLY YES/NO, HOWEVER PT REMAINS CONFUSED, RESPONSES INAPPROPRIATE & PT CONTINUES TO RESPOND TO & INTERACT W/ UNSEEN STIMULI. CIWA 23.
--- NOTE | 2021-12-15 20:00 | NUR ---
ASSESSMENT/ASSUMED CARE PT SLEEPING, AWAKENS EASILY TO VERBAL STIMULI. SPEECH SLURRED AND SLOW TO RESPOND. FOLLOWS SOME INSTRUCTIONS. BILAT SOFT WRIST RESTRAINTS ON. LUNGS CLEAR ON ROOMAIR. RESP EVEN AND NONLABORED. DENIES SOB OR COUGH. HEART RATE REGULAR, SBP LOW BUT STABLE MAPS. BT+ ABD SOFT AND NONTENDER. CIWA 18. PT INCONT OF URINE. ATTENDS CHANGED AND CARMEN CARE DONE. REPOSITIONED. PT BACK TO SLEEP QUICKLY WHEN UNDISTURBED
[2021-12-16 03:24] LABS: BASOPHILS ABSOLUTE AUTO 0.04 K/mm3 (0.00-0.23); BASOPHILS PERCENT AUTO 1 % (0-2); EOSINOPHILS ABSOLUTE AUTO 0.12 K/mm3 (0.00-0.68); EOSINOPHILS PERCENT AUTO 3 % (0-6); Hematocrit 34.1 % (33.0-51.0); Hemoglobin 11.5 g/dL (11.5-16.0); IMMATURE GRAN PERCENT AUTO 0 % (0-1); LYMPHOCYTES ABSOLUTE AUTO 1.45 K/mm3 (0.84-5.20); LYMPHOCYTES PERCENT AUTO 35 % (21-46); MONOCYTES ABSOLUTE AUTO 0.74 K/mm3 (0.16-1.47); MONOCYTES PERCENT AUTO 18 % (4-13); Mean Corpuscular HGB 31.7 pg (26.0-34.0); Mean Corpuscular HGB Conc 33.7 g/dL (31.5-36.5); Mean Corpuscular Volume 94 fL (80-100); Mean Platelet Volume 11.1 fL (9.1-12.4); NEUTROPHILS ABSOLUTE AUTO 1.79 K/mm3 (1.96-9.15); NEUTROPHILS PERCENT AUTO 43 % (41-73); RDW Coefficient Variation 15.8 % (11.7-14.2); RDW Standard Deviation 54.4 fL (35.1-46.3); Red Blood Cell Count 3.63 M/mm3 (3.80-5.20); White Blood Cell Count 4.14 K/mm3 (4.00-11.30)
[2021-12-16 03:29] LABS: Platelet Count 22 K/mm3 (150-400)
[2021-12-16 03:41] LABS: Alanine Aminotransfer (ALT/SGP 23 U/L (12-78); Albumin/Globulin Ratio 0.4 (0.8-1.8); Alk Phos 93 U/L (50-136); Anion Gap 5 mmol/L (6-16); Aspartate Aminotrans (AST/SGOT 77 U/L (12-37); Bilirubin, Total 4.5 mg/dL (0.1-1.0); Blood Urea Nitrogen 7 mg/dL (8-24); Bun/Creatinine Ratio 9.2 (12.0-20.0); CO2, Blood 30 mmol/L (21-32); Calcium, Blood 8.2 mg/dL (8.5-10.1); Chloride, Blood 105 mmol/L (98-108); Creatinine, Blood 0.76 mg/dL (0.40-1.00); Globulin, Blood 4.6 g/dL (2.2-4.0); Glomerular Filtration Rate >60 (60-); Glucose, Blood 102 mg/dL (70-99); Magnesium, Blood 1.5 mg/dL (1.6-2.4); Phosphorus, Blood 3.3 mg/dL (2.5-4.9); Potassium, Blood 3.8 mmol/L (3.5-5.5); Sodium, Blood 140 mmol/L (136-145); Total Protein, Blood 6.6 g/dL (6.4-8.2)
--- NOTE | 2021-12-16 06:01 | NUR ---
SHIFT SUMMARY PT AWAKE MOVING SELF IN BED. ANSWERING MORE QUESTIONS. SPEECH CONT TO BE SLOW, BUT MORE CLEAR AND EASY TO UNDERSTAND. FREQUENT REDIRECTION REGARDING GETTING OUT OF BED. BED ALARM ON. RESTRAINTS REMOVED AT 0400. PT UP TO BSC ONCE, NO VOID AT THAT TIME. INCONT OF URINE DURING THE NIGHT. ATTENDS CD&I AT THIS TIME. VSS. PT RECEIVING 2GM MAG FOR MAG LEVEL DOWN TO 1.5. CIWA 18-20. PT HAS RECEIVED LIBRIUM 50 MG TWICE DURING THE NIGHT. PLT CONT TO BE LOW BUT UP TO 22 THIS AM FROM 15. CONT TO MONITOR AND REPORT TO ON COMING NURSE
--- NOTE | 2021-12-16 09:30 | NUR ---
ASSUMED CARE OF PT, REPORT RCV'D FROM AMINTA THOMPSON. PT ALERT TO SELF, FOLLOWS COMMANDS. PT CONFUSED TO LOCATION, DATE, AND YEAR. UNABLE TO RECALL 1 OF HER DAUGHTERS NAMES AND FREQUENTLY REQUIRED REORIENTATION. PT TREMULOUS, PICKING AT OBJECTS AND ATTEMTPING TO SIT UP OUT OF BED. PT PLACED IN CHAIR USING 2-PERSON ASSIST WITH GAIT BELT WITH TAB ALARM, BED ALARM ON WHILE IN BED, BED LOW/LOCKED, CURTAIN OPEN. VSS STABLE. PT ABLE TO TOLERATE PO MEDICATIONS WITHOUT DIFFICULTY. CIWA'S PER PROTOCOL. CURRENT CIWA 24.
--- NOTE | 2021-12-16 12:08 | NUR ---
Pt. is awake and sitting up in bed, but displays evidence of confusion. Pt. communicates with one word responses. Pt. did affirm interest in pastoral prayer, when asked. Prayed with Pt. Pts. limited response displayed gratitude.
[2021-12-16] MEDS ORDERED: ONDA4ODT PO (12:30)
--- NOTE | 2021-12-16 13:50 | NUR ---
PT MUCH MORE ORIENTED TO SELF, ABLE TO RECALL HEALTH HISTORY AND STATES INTENTION OF RETURNING TO [facility] FOR DETOX. CALL TO CLEMENT AT [facility], UPDATED WITH PT'S CURRENT CIWA SCORES AND IMPROVEMENTS. TENTATIVE PLAN TO DISCHARGE BACK TO [facility] TOMORROW.
--- NOTE | 2021-12-16 18:37 | NUR ---
SHIFT SUMMARY PT CIWA SCORES 24 THIS AM, 5-6 THIS EVENING. PT MUCH MORE ALERT AND ORIENTED, ABLE TO ASSIST WITH HEALTH HISTORY AND REMAINS COOPERATIVE WITH CARE. PT CONTINUES TO BE INDEPENDENT WITH MEALS, REQUIRES 1-PERSON ASSIST TO BEDSIDE COMMODE/BEDPAN. VSS T/O SHIFT. BED ALARM REMAINS ON. PLAN TO DISCHARGE BACK TO [facility] TOMORROW. SEE PREVIOUS NOTES FROM THIS SHIFT. WILL REPORT TO ONCOMING NURSE.
[2021-12-17 03:43] LABS: Hematocrit 33.5 % (33.0-51.0); Hemoglobin 11.5 g/dL (11.5-16.0); Mean Corpuscular HGB 32.3 pg (26.0-34.0); Mean Corpuscular HGB Conc 34.3 g/dL (31.5-36.5); Mean Corpuscular Volume 94 fL (80-100); Mean Platelet Volume 10.7 fL (9.1-12.4); RDW Standard Deviation 55.5 fL (35.1-46.3); Red Blood Cell Count 3.56 M/mm3 (3.80-5.20); White Blood Cell Count 2.87 K/mm3 (4.00-11.30)
[2021-12-17 03:54] LABS: Platelet Count 26 K/mm3 (150-400)
[2021-12-17 04:00] LABS: Anion Gap 5 mmol/L (6-16); Blood Urea Nitrogen 5 mg/dL (8-24); Bun/Creatinine Ratio 7.2 (12.0-20.0); CO2, Blood 30 mmol/L (21-32); Calcium, Blood 8.5 mg/dL (8.5-10.1); Chloride, Blood 105 mmol/L (98-108); Creatinine, Blood 0.69 mg/dL (0.40-1.00); Glomerular Filtration Rate >60 (60-); Glucose, Blood 131 mg/dL (70-99); Magnesium, Blood 1.5 mg/dL (1.6-2.4); Potassium, Blood 3.6 mmol/L (3.5-5.5); Sodium, Blood 140 mmol/L (136-145)
--- NOTE | 2021-12-17 06:03 | NUR ---
Confused most of night. Able to answer orientation quesitons on occasion. Medicated as needed with librium for ETOH withdrawl symptoms. continues to have severe tremors. Pulled IV out this am, restart completed by nurse. Attempts to ask questions but loses train of thought easily. Slow to answer questions and sometimes will start to answer but does not finish sentences. Incont of urine through out night. Bed alarm on for safety due to impulsive tendencies. Attempts to climb out of bed to go to bathroom, but has already was incont of urine prior to attempt to go.
--- NOTE | 2021-12-17 08:00 | NUR ---
AM ASSESSMENT: CIWA 26 THIS AM. PT ORIENTED TO SELF ONLY. FOLLOWS COMMANDS AT TIMES, BUT VERY RESTLESS AND AGITATED. MED WITH LIBRIUM 50 MG PO AND ATIVAN 2 MG IVP X 1. ECG SHOWS SR. SBP TRENDING 90'S. LUNGS CLEAR-NO NOTED SOB OR COUGH. PT ABLE TO TAKE MEDS FAIRLY WELL WITH SIP OF WATER. NO SIGNS OF ASPIATION. WILL ASSESS ONGOING WITH LOC/CIWA. NO NOTED GI DISTRESS. PT CARMEN AREA VERY RED-WITH YEAST LIKE RASH. DR. BENTLEY AWARE. MATA CATHETER PLACED AND U/A SENT PER MATA INSERTION PROTOCOL. CARMEN CARE DONE AND ANTIFUNGAL POWDER APPLIED. PT HAS SCATTERED BRUISES THROUGH OUT-ESPECIALLY TO HER UPPER EXTREMITIES. CALL LIGHT PLACED WITHIN REACH AND BED ALARM ON.
[2021-12-17 08:29] LABS: Source, Urine Foley catheter
--- NOTE | 2021-12-17 08:30 | NUR ---
ZARINA 16-PETROLEUM TERMINAL PLANT OPERATOR AT BEDSIDE ASSISTING PT WITH BREAKFAST.
[2021-12-17 08:57] LABS: Appearance, Urine Clear (Clear); Bilirubin, Urine Neg (Neg); Blood, Urine Neg (Neg); Color, Urine Yellow (P-Yellow); Glucose Qualitative, Urine Neg (Neg); Ketones, Urine Neg (Neg); Leukocyte Esterase, Urine Neg (Neg); Nitrite, Urine Neg (Neg); Protein, Urine Neg (Neg); Urobilinogen, Urine NORM (Normal)
--- NOTE | 2021-12-17 09:58 | NUR ---
PT TURNED HERSELF TO THE LEFT SIDE. CURRENTLY, RESTING QUIETLY WITHOUT NOTED DISTRESS.
--- NOTE | 2021-12-17 10:05 | NUR ---
RN RESPONDED TO BED ALARM SOUNDING. CIWA 8 AT THIS TIME. PT WAS ATTEMPTED TO TURN TO THE OTHER SIDE. PT BOOSTED IN BED AND REPOSITIONED TO COMFORT ON RIGHT SIDE.
--- NOTE | 2021-12-17 10:45 | NUR ---
BED ALARM SOUNDED. PT SITTING AT THE BEDSIDE ATTEMPTING TO GET OUT OF BED. CIWA 26. PT BOOSTED IN BED AND REPOSITIONED IN PADILLA'S POSITION. MED WITH LIBRIUM 50 MG PO AND ATIVAN 2 MG IVP X 1 SEE EMAR.
--- NOTE | 2021-12-17 11:52 | NUR ---
CIWA 21. MED WITH ATIVAN 2 MG IVPX1-SEE EMAR. PT REPORTS NAUSEA AND APPETITE POOR. CBG 151-NO INSULIN GIVEN-SEE EMAR. VS WDL. SATS 97-100% ON RA AND NO NOTED RESPIRATORY DISTRESS.
--- NOTE | 2021-12-17 14:00 | NUR ---
DR. BENTLEY NOTIFIED THAT PT CIWA CONTINUES TO ESCALATE AND CURRENTLY 28-DESPITE MED WITH BOTH LIBRIUM AND ATIVAN-SEE EMAR. PT NO ICU STATUS AND PRECEDEX DRIP TO BE INITIATED.
--- NOTE | 2021-12-17 14:00 | NUR ---
PT EXTREMELY RESTLESS AND AGITATED. HALLUCINATING, PULLING AT LINES AND TUBES. PT GIVEN BED BATH, LINEN CHANGE COMPLETED, THEN PT MED WITH LIBRIUM 50 MG PO. PT ABLE TO SWALLOW MEDS AND TAKE A SIP OF WATER WITH LOTS OF ASSISTANCE. PT IS MORE TREMULOUS THAN SHE WAS EARLIER TODAY-SEE ZARINA.
--- NOTE | 2021-12-17 15:00 | NUR ---
CIWA CONTINUES 28-PRECEDEX DRIP INITIATED @ 0.4 MCG/KG/MIN.
--- NOTE | 2021-12-17 16:00 | NUR ---
PT IS VERY AGITATED DESPITE PRECEDEX @ 0.7 MCG/KG/MIN-CIWA 33.
--- NOTE | 2021-12-17 16:15 | NUR ---
DR. BENTLEY MADE AWARE THAT PT CIWA 33 DESPITE PRECEDEX DRIP AT 0.7 MCG/KG/MIN. ORDER GIVEN TO TITRATED PRECEDEX TO 1.4 MCG/KG/MIN IF NEEDED.
--- NOTE | 2021-12-17 16:57 | NUR ---
PT RESTING QUIETLY WITHOUT NOTED DISTRESS. PRECEDEX DRIP DECREASED TO 0.9 MCG/KG/MIN. CBG 147-NO COVERAGE REQUIRED. PT NPO AT THIS TIME SHE IS ON IV SEDATION-LATUDA HELD*SEE EMAR*
--- NOTE | 2021-12-17 17:43 | NUR ---
CIWA 5. NO NOTED DISTRESS. PRECEDEX DRIP TITRATED DOWN TO 0.7 MCG/KG/MIN.
--- NOTE | 2021-12-17 20:08 | NUR ---
SHIFT ASSESSMENT PT RESTING QUIETLY, TITRATED PRECEDEX GTT TO 0.5. DOVER, QUICKLY BACK TO SLEEP. CIWA <8. NSR ON THE CIRCULATION MANAGER. MATA CATH PATENT DRAINING YELLOW URINE. VSS. WILL CONTINUE TO MONITOR CLOSELY.
[2021-12-18 03:56] LABS: Hematocrit 34.3 % (33.0-51.0); Hemoglobin 11.8 g/dL (11.5-16.0); Mean Corpuscular HGB 31.9 pg (26.0-34.0); Mean Corpuscular HGB Conc 34.4 g/dL (31.5-36.5); Mean Corpuscular Volume 93 fL (80-100); Mean Platelet Volume 9.3 fL (9.1-12.4); RDW Coefficient Variation 15.9 % (11.7-14.2); RDW Standard Deviation 54.5 fL (35.1-46.3); White Blood Cell Count 3.25 K/mm3 (4.00-11.30)
[2021-12-18 04:01] LABS: Platelet Count 31 K/mm3 (150-400)
[2021-12-18 04:10] LABS: Anion Gap 7 mmol/L (6-16); Blood Urea Nitrogen 5 mg/dL (8-24); CO2, Blood 27 mmol/L (21-32); Calcium, Blood 8.1 mg/dL (8.5-10.1); Chloride, Blood 108 mmol/L (98-108); Creatinine, Blood 0.72 mg/dL (0.40-1.00); Glomerular Filtration Rate >60 (60-); Glucose, Blood 117 mg/dL (70-99); Magnesium, Blood 1.4 mg/dL (1.6-2.4); Potassium, Blood 3.6 mmol/L (3.5-5.5); Sodium, Blood 142 mmol/L (136-145)
--- NOTE | 2021-12-18 06:16 | NUR ---
SHIFT SUMMARY PT ALERT TO PERSON, FOLLOWING SIMPLE COMMANDS, QUICKLY BACK ASLEEP WITH DECREASED STIMULI. REMAINS CONFUSED TO PLACE AND TIME. PRECEDEX GTT TITRATED OFF @ 2300, REMAINS OFF AT THIS TIME. ONE DOSE OF ATIVAN GIVEN DURING THE NIGHT FOR A CIWA OF 10. WITHELD PTS AM MEDICATIONS DUE TO ASP RISK. 2G IV MAG INFUSING THIS AM. MATA DRAINING SILVIA URINE. VSS.
--- NOTE | 2021-12-18 07:30 | NUR ---
ASSUMED CARE: PT RESTING IN BED, VERY LETHARGIC. OPENS EYES WHEN NAME STATED AND ATTEMPTS TO SPEAK BUT SPEECH IS GARBLED. NSR ON TELE. VSS AT THIS TIME. BILATERAL WRIST RESTRAINTS IN PLACE TO PREVENT INJURY. NO ACUTE NEEDS AT THIS TIME.
--- NOTE | 2021-12-18 11:36 | NUR ---
PHARMACY CALLED AND STATED THAT HOSPITAL DID NOT HAVE LATUDA IN STOCK AND NEEDED MORE BROUGHT FROM HOME. CALL TO PT'S DAUGHTER DALLIN TO VE MED BROUGHT IN. DAUGHTER DID NOT ASK FOR UPDATE ON STATUS AND SEEMED SURPRISED TO GET CALL BUT STATED SHE HAS BEEN GETTING UPDATES FROM HER GRANDMOTHER
--- NOTE | 2021-12-18 15:55 | NUR ---
CIWA SCORE OF 16 UPON WALKING INTO THE ROOM, PT WAS TRYING TO ROLL ON HER SIDE, HAD TAKEN HER BLOOD PRESSURE CUFF OFF, AND HAD VISIBLE TREMORS. PT STATED THAT SHE WAS FEELING ANXIOUS WHEN ASKED AND REPORTED HAVING A SEVERE HEADACHE. PRIMARY RN ADMINISTERED 2MG ATIVAN PER CIWA PROTOCOL. WILL CONTINUE TO MONITOR.
--- NOTE | 2021-12-18 16:44 | NUR ---
CALL TO DR BENTLEY TO SEE IF HE WANTED LABS ORDERED FOR 3/4 DUE TO REPLACING PT'S MAGNESIUM THIS AM. DR MONTEZ WOULD LIKE TO ORDER LABS FOR EVERY OTHER DAY. NO FURTHER NEEDS AT THIS TIME.
--- NOTE | 2021-12-18 17:08 | NUR ---
PT'S DAUGHTER DALLIN CALLED BACK STATING THAT FAMILY MEMBERS THAT HAVE ACCESS TO PT'S LATUDA LIVE SEVERAL HOURS AWAY. CALL TO DR BENTLEY WHO STATES TO CHART MED UNAVAILABLE. NO FURTHER NEEDS AT THIS TIME.
--- NOTE | 2021-12-18 18:22 | NUR ---
SHIFT SUMMARY: PT MEDICATED WITH ATIVAN TWICE THIS SHIFT. PT'S HIGHEST CIWA WAS 21. NSR ON TELE WITH VSS. LR RUNNING AT 100/HR DUE TO PT NOT EATING AND DRINKING MUCH TODAY DUE TO LETHARGY. HAS BEEN OFF OF PRECEDEX GTT SINCE LAST PM. BED ALARM ON AND CALL LIGHT IN REACH
--- NOTE | 2021-12-18 19:30 | NUR ---
ASSUMED CARE OF DANIELLA, DANIELLA AWAKENS TO VOICE. EYES CRUSTY, FACE WASHED AND ORAL CARE COMPLETED, LUNGS CLEAR, ABDOMEN SOFT, BOWEL TONES ACTIVE, MATA TO GRAVITY DRAINAGE WITH BRIGHT YELLOW RETURN. SKIN FOLDS IN GROIN RED/IRRITATED, POWDERED PER MAR, MATA CARE DONE, ODOR PRESENT. NO BOWEL MOVEMENT, BACK CLEAN DRY AND INTACT. PT REPOSITIONED, PT TREMULOUS, ANSWERS SHE IS HEARING VOICES AND THAT SOMEONE ELSE IS IN THE ROOM. CAN'T IDENTIFY WHERE SHE IS OR WHY. ARMS PULLED CLOSE TO HER TRUNK, LEGS STIFF. SCD'S IN USE.
--- NOTE | 2021-12-18 20:22 | NUR ---
ICE BAG PLACED ON LEFT HAND FOR SWELLING/BRUISING/REDNESS
--- NOTE | 2021-12-18 21:00 | NUR ---
ASSUMPTION OF CARE BEDSIDE REPORT RECEIVED AT THIS TIME FROM VIK LEMOS. PT SLEEPING BUT WAKENS TO VERBAL STIMULI. SHE IS RECEIVING LR 100ML/HR. MATA PATENT AND DRAINING TO GRAVITY. VSS AT THIS TIME.
--- NOTE | 2021-12-19 06:05 | NUR ---
SHIFT SUMMARY PT SLEPT ON AND OFF THROUGHOUT NIGHT. SHE WAKENS EASILY TO VERBAL STIMULI. CONTINUES TO RECEIVE LR AT 100ML/HR. CIWA SCORES HAVE VARIED BETWEEN 15-23. MATA PATENT AND DRAINING CLEAR YELLOW URINE WITH A SHIFT OUTPUT OF 1950ML. TOLERATING SMALL DRINKS OF PO FLUIDS AND PO MEDS WELL. VSS THROUGHOUT SHIFT. WILL REPORT TO ONCOMING RN.
--- NOTE | 2021-12-19 10:47 | NUR ---
Pt. is in bed displaying evidence of somnolence. Pt. does welcome me in for a visit. Attempt to establish rapport, but Pt. doesn't respond. Pts. movements are very slow, and display evidence of significant discomfort. With Pts. permission I gave a theraputic pastoral prayer. Pt. displayed evidence of gratitude.
--- NOTE | 2021-12-19 19:18 | NUR ---
SHIFT SUMMARY: Pt received three doses of 50mg librium today. She is still confused, but cooperative. She declined shower today; catheter care was performed by RN. Pt has little appetite; she does take ensure well. This RN spoke to RN at [facility] for update. Segura catheter in place. Pt placed on video monitoringtoday since she has attempted to get out of bed several times.
--- NOTE | 2021-12-19 19:36 | NUR ---
ASSUMED PT CARE AT 1915 FROM AMINTA LARRY PT ALERT TO SELF ONLY. CIWA 13. PT HAS BEEN RECEIVING LIBRIUM PER ORDERS FOR ETOH W/D. PT ABLE TO FOLLOW SIMPLE COMMANDS. SLOW TO RESPOND WITH A SLURRED/GARBLED SPEECH. PT DOESN'T ALWAYS ANSWER QUESTIONS. MIDLINE TO LEFT UPPER ARM THAT IS SALINE LOCKED AT THIS TIME. MATA CATHETER IS PATENT AND DRAINING TO GRAVITY. BED ALARM IS ON AND PT IS CURRENTLY ON THE CAMERA FOR SAFETY D/T NUMEROUS TIMES OF ATTEMPTING TO GET OUT OF BED. PT IS EASILY REDIRECTABLE. SEE SHIFT SUMMARY FOR FURTHER DETAILS.
[2021-12-20 04:40] LABS: Hematocrit 34.6 % (33.0-51.0); Hemoglobin 11.9 g/dL (11.5-16.0); Mean Corpuscular HGB 31.6 pg (26.0-34.0); Mean Corpuscular HGB Conc 34.4 g/dL (31.5-36.5); Mean Corpuscular Volume 92 fL (80-100); Mean Platelet Volume 9.1 fL (9.1-12.4); RDW Coefficient Variation 15.9 % (11.7-14.2); RDW Standard Deviation 53.6 fL (35.1-46.3); Red Blood Cell Count 3.77 M/mm3 (3.80-5.20); White Blood Cell Count 5.24 K/mm3 (4.00-11.30)
[2021-12-20 04:42] LABS: Platelet Count 39 K/mm3 (150-400)
[2021-12-20 04:56] LABS: Anion Gap 6 mmol/L (6-16); Blood Urea Nitrogen 3 mg/dL (8-24); Bun/Creatinine Ratio 4.4 (12.0-20.0); CO2, Blood 29 mmol/L (21-32); Chloride, Blood 106 mmol/L (98-108); Creatinine, Blood 0.68 mg/dL (0.40-1.00); Glomerular Filtration Rate >60 (60-); Glucose, Blood 145 mg/dL (70-99); Magnesium, Blood 1.5 mg/dL (1.6-2.4); Potassium, Blood 3.5 mmol/L (3.5-5.5); Sodium, Blood 141 mmol/L (136-145)
--- NOTE | 2021-12-20 05:02 | NUR ---
END OF SHIFT SUMMARY NO SIGNIFICANT CHANGES; CIWA SCORES REMAIN >8. PT MEDICATED WITH BOTH LIBRIUM AND ATIVAN THIS SHIFT. SHE CONTINUES TO ATTEMPT TO CRAWL OUT OF BED AND DISROBE. BED ALARM REMAINS ON AND PT REMAINS ON THE CAMERA. PT ATTEMPTED TO PULL OUT MIDLINE IV TO JOANIE AND MANAGED TO TEAR PIGTAIL, BUT DRESSING AND IV CATHETER REMAINED INTACT; DRESSING CHANGED WITH NEW PIGTAIL PLACED TO IV. DRESSING THEN SECURED AND PT PLACED IN MUNIRA VEST, BUT NOT A RESTRAINT, BUT A DISTRACTION FROM PT DISROBING. MUNIRA IS NOT TIED DOWN TO THE BED. PT ALSO PLACED IN A SOFT RIGHT WRIST RESTRAINT TO AVOID PT PULLING OUT IV TO LEFT UPPER ARM. PT REMAINS QUIET AND ORIENTED TO SELF ONLY AND ABLE TO FOLLOW SIMPLE, ONE STEP DIRECTIONS. SHE REMAINS SALINE LOCKED. MINIMAL PO INTAKE THIS SHIFT WITH A LARGE AMOUNT OF URINE OUTPUT; 2050CC TOTAL. WILL CONTINUE TO MONITOR UNTIL REPORT IS HANDED OFF TO ONCOMING RN.
--- NOTE | 2021-12-20 08:24 | NUR ---
unable to clearly make needs known, oriented to person, place and thing. report from pm rn, patient aggitation increased through the night, patient calm presently, dr au rounded, magnesium being replaced now. bed alarm on, video monitor on, wctm
--- NOTE | 2021-12-20 14:19 | NUR ---
PATIENT CONTINUES TO REPOSITIN SELF IN THE BED, LEGS OVER THE SIDE RAILS, CONSTANTLY TRYING TO GET OOB, CAMERA MONITOR ON, EASILY REDIRECTABLE, WITH IN EYE SIGHT OF THE NURSING STATION, BED ALARM ON, WCTM
--- NOTE | 2021-12-20 18:09 | NUR ---
reported to dr au patient has not had a bm since 12/15/19, ammonia level ordered, patient more withdrawn, pt/ot order for tomorrow, wctm
--- NOTE | 2021-12-20 18:25 | NUR ---
SLOW TO MAKE NEEDS KNOWN, WITH DRAWN, CRYING, CONSOLABLE, CONFUSED, CONSTANT MOVEMENT IN BED, BED ALARM AND MONITOR ON. CIWA 12-16, LS DIMINSHED, 96% ON RA, NO SOB. SBP 100-120, DENIES CP, OR N/V. MATA TO GRAVITY, CLOUDY ODOROUS URINE. MUNIRA VEST AND WRIST RESTRAINTS. NO BM DOCUMENTED SINCE 12/15/21, AMMONIA TO BE DRAWN. WILL RELAY TO PM RN, ROSE
--- NOTE | 2021-12-21 07:42 | NUR ---
CALM ALL THROUGH NIGHT. THROWS LEGS OVER SIDE RAIL ON OCCASION. NO ATTEMPTS TO COMMUNICATE. WILL ONLY LOOK AT NURSE AND FOLLOW DIRECTIONS. ON OCCASION THIS AM WOULD SAY "YES" WHEN ASKED IF WANTED A DRINK. NO OTHER YES/NO QUESTIONS ANSWERED. URNINE WITH FOUL ODOR AND CLOUDY THIS AM, DR NOTIFIED AND ORDER FOR UA OBTAINED.
--- NOTE | 2021-12-21 08:08 | NUR ---
ASSUMED CARE REPORT FROM OLU LEMOS AT 0700. PT RESTING IN BED. OPENS EYES SPONTANEOUSLY. MAKES EYE CONTACT. TRACKS STAFF FOR SHORT PERIOD OF TIME. FOLLOWS SIMPLE COMMANDS. OCCASIONALLY ANSWERS QUESTIONS c ONE WORD. WITHDRAWN. MALICK. LUNGS CLEAR. NSR, RATE 70'S. BP STABLE. ABD ROUND, SOFT, NON TENDER. BTX 4. NO BM CHARTED. DISCUSSED c DR BENTLEY, PLAN FOR EMEMA THIS SHIFT. MATA PATENT, DRAINING CLOUDY SILVIA URINE TO GRAVITY. UA TO BE SENT. WILL CONTINUE TO MONITOR.
[2021-12-21 08:19] LABS: Source, Urine Foley catheter
[2021-12-21 08:22] LABS: Appearance, Urine Hazy (Clear); Blood, Urine 1+ (Neg); Color, Urine Yellow (P-Yellow); Glucose Qualitative, Urine Neg (Neg); Ketones, Urine 1+ (Neg); Leukocyte Esterase, Urine 3+ (Neg); Nitrite, Urine Pos (Neg); Protein, Urine 1+ (Neg); Specific Gravity, Urine 1.025 (1.003-1.022); Urobilinogen, Urine 2+ (Normal)
[2021-12-21 08:31] LABS: Bilirubin, Urine 1+ (Neg)
[2021-12-21 08:34] LABS: Mucus Light (0-Heavy)
[2021-12-21 08:43] LABS: Bacteria Few /hpf; Red Blood Cells, Urine 0-2 /hpf (0-2); Renal Epithelial Rare /hpf (0-Rare); Squamous Epithelial Cells Few /hpf (Few); White Blood Cells, Urine TNTC /hpf (0-5)
[2021-12-21 16:03] LABS: Bun/Creatinine Ratio 7.4 (12.0-20.0); Calcium, Blood 8.8 mg/dL (8.5-10.1); Creatinine, Blood 1.08 mg/dL (0.40-1.00)
[2021-12-21 16:05] LABS: Potassium, Blood 6.8 mmol/L (3.5-5.5)
[2021-12-21 16:52] LABS: BASOPHILS ABSOLUTE AUTO 0.04 K/mm3 (0.00-0.23); BASOPHILS PERCENT AUTO 1 % (0-2); EOSINOPHILS ABSOLUTE AUTO 0.03 K/mm3 (0.00-0.68); EOSINOPHILS PERCENT AUTO 1 % (0-6); Hematocrit 47.7 % (33.0-51.0); Hemoglobin 15.9 g/dL (11.5-16.0); IMMATURE GRAN ABSOLUTE AUTO 0.07 K/mm3 (0.00-0.10); IMMATURE GRAN PERCENT AUTO 1 % (0-1); LYMPHOCYTES ABSOLUTE AUTO 0.55 K/mm3 (0.84-5.20); LYMPHOCYTES PERCENT AUTO 9 % (21-46); MONOCYTES ABSOLUTE AUTO 0.31 K/mm3 (0.16-1.47); MONOCYTES PERCENT AUTO 5 % (4-13); Mean Corpuscular HGB 31.5 pg (26.0-34.0); Mean Corpuscular HGB Conc 33.3 g/dL (31.5-36.5); Mean Corpuscular Volume 95 fL (80-100); Mean Platelet Volume 10.2 fL (9.1-12.4); NEUTROPHILS PERCENT AUTO 84 % (41-73); NRBC ABSOLUTE 0.06 K/mm3 (0.00-0.02); RDW Coefficient Variation 16.5 % (11.7-14.2); RDW Standard Deviation 57.8 fL (35.1-46.3); Red Blood Cell Count 5.05 M/mm3 (3.80-5.20)
[2021-12-21 16:57] LABS: Platelet Count 49 K/mm3 (150-400)
--- NOTE | 2021-12-21 17:46 | NUR ---
SHIFT SUMMARY AT APPROX 1500, PT APPEARED TO BE LESS RESPONSIVE, OPENS EYES TO VERBAL STIMULI. NO LONGER FOLLOWS COMMANDS. CONCERN FOR UROSEPSIS. MATA WAS D/C'D EARLIER IN SHIFT FOR +UA. ROCEPHIN STARTED. HR INCREASED TO 110'S. BP STABLE. DR BENTLEY CALLED, 1L BOLUS LR AND 125 ML/HR ORDERED, CBC AND BMP ORDERED. CRITICAL K REPORTED, NO EKG CHANGED, REDRAWN SHOWS NORMAL K. PT BP DECREASED 70/50'S, 2L NS BOLUS ORDERED AND ORDERS TO START LEVO AND GET POULTRY PICKER CONSULT IF NEEDED. 2L NS INFUSING. MAP >65 AT THIS TIME. HR DOWN TO 90'S. PT MORE ALERT, STILL NOT FOLLOWING COMMANDS. TEMP PROBE MATA PLACED, 99.5, UA SENT TO LAB. PT GIVEN ONE LACTULOSE EMEMA THIS SHIFT, SECOND HELD D/T TWO LOOSE STOOLS. WILL CONTINUE TO MONITOR UNTIL REPORT TO ONCOMING NURSE.
[2021-12-21 17:47] LABS: Source, Urine Foley catheter
[2021-12-21 17:53] LABS: Blood, Urine 1+ (Neg); Glucose Qualitative, Urine Neg (Neg); Ketones, Urine 1+ (Neg); Leukocyte Esterase, Urine 2+ (Neg); Nitrite, Urine Pos (Neg); Protein, Urine 1+ (Neg); Specific Gravity, Urine 1.025 (1.003-1.022); Urobilinogen, Urine 2+ (Normal)
[2021-12-21 18:01] LABS: Appearance, Urine Hazy (Clear); Bilirubin, Urine 1+ (Neg); Color, Urine Amber (P-Yellow)
[2021-12-21 18:03] LABS: Bacteria Mod /hpf; Squamous Epithelial Cells Rare /hpf (Few); Yeast/Fungi Urine Rare /hpf
[2021-12-21 18:04] LABS: Amorphous Mod (0-Heavy); Mucus Light (0-Heavy)
[2021-12-22 05:29] LABS: Hematocrit 42.9 % (33.0-51.0); Hemoglobin 14.4 g/dL (11.5-16.0); Mean Corpuscular HGB 31.8 pg (26.0-34.0); Mean Corpuscular HGB Conc 33.6 g/dL (31.5-36.5); Mean Corpuscular Volume 95 fL (80-100); Mean Platelet Volume 10.5 fL (9.1-12.4); NRBC ABSOLUTE 0.02 K/mm3 (0.00-0.02); NRBC Auto 0.1 /100 WBC (0.0-0.2); Platelet Count 67 K/mm3 (150-400); RDW Coefficient Variation 16.7 % (11.7-14.2); RDW Standard Deviation 58.4 fL (35.1-46.3); Red Blood Cell Count 4.53 M/mm3 (3.80-5.20); White Blood Cell Count 13.91 K/mm3 (4.00-11.30)
--- NOTE | 2021-12-22 06:00 | NUR ---
BLOOD PRESSURE LOW, STARTED LEVOPHED, INCREASED TO MAX ALLOWED FOR NO CENTRAL LINE. DR CROCKETT NOTIFIED, CENTRAL LINE INSERTED. LEVOPHED UP TO 20 MCG, ORDER RECIEVED TO START VASOPRESSIN. ABLE TO TITRATE LEVOPHED DOWN TO 12 MCG. CONTINUES TO BE NONVERBAL AND DOES NOT FOLLOW REQUESTS. CT OF HEAD OBTAINED.
[2021-12-22 06:14] LABS: Bun/Creatinine Ratio 10.2 (12.0-20.0); Calcium, Blood 7.6 mg/dL (8.5-10.1); Creatinine, Blood 1.08 mg/dL (0.40-1.00); Magnesium, Blood 1.2 mg/dL (1.6-2.4); Potassium, Blood 4.3 mmol/L (3.5-5.5)
--- NOTE | 2021-12-22 07:30 | NUR ---
ASSUMED CARE: REPORT RECEIVED FROM MARTITA Vigil RN. ASSUMED CARE OF THIS PT AT APPROX 0700. ON ASSESSMENT, THE PT IS OVERALL SOMNOLENT, AWAKENING BRIEFLY TO TACTILE STIMULUS BEFORE FALLING ASLEEP. SHE BECOMES TREMULOUS W/ INCREASED STIMULUS & IS UNABLE TO FOLLOW DIRECTIONS OR VERBALIZE AT THIS TIME. LS DIM T/O, PT ON RA W/ O2 SATS > 925. MONITOR SHOWS SR W/ HR 70s, LEVOPHED & VASOPRESSIN INFUSING FOR PERSISTANT HYPOTENSION. PT NPO FOR INCREASED ASPIRATION RISK R/T AMS, ALL PO MEDICATIONS HELD THIS AM. TEMP MATA PATENT/ DRAINING ORANGE CLOUDY URINE W/ COPIOUS AMNTS SEDIMENT NOTED. SKIN CONDITION OVERALL FRAGILE, ECCHYMOTIC. Q2H REPOSITIONING TO MAINTAIN SKIN INTEGRITY. WILL CONTINUE TO MONITOR & UPDATE NEEDED.
--- NOTE | 2021-12-22 11:57 | NUR ---
DR KOENIG: PROVIDER HAS BEEN CONSULTED PER DR BENTLEY FOR MANAGEMENT OF SEPSIS. NO CHANGES NEEDED AT THIS TIME, SHE WILL CONTINUE TO MONITOR.
--- NOTE | 2021-12-22 17:15 | NUR ---
DR KOENIG: PT's CONTINUED HYPOTENSION & POOR URINE OUTPUT W/ PROVIDER. 1L LR BOLUS ORDERED & CVP SETUP VIA CENTRAL LINE IN RIGHT IJ. ECHO ALSO ORDERED. BOLUS INFUSING PER ORDERS & CVP READING 3-5 AT THIS TIME.
--- NOTE | 2021-12-22 18:38 | NUR ---
SHIFT SUMMARY: NO ACUTE CHANGES SINCE PRIOR UPDATES. PT REMAINS OVERALL SOMNOLENT, IS AWAKENING MORE THIS AFTERNOON. EYES OPEN SPONTANEOUSLY, NOT FOLLOWING DIRECTIONS, MOVING SELF IN BED MORE INDEPENDENTLY. LS DIM T/O, PT ON RA W/ O2 SATS > 92% ON AVG. MONITOR SHOWS SR W/ HR 80s, LEVOPHED AT 12 MCG/MIN & VASOPRESSIN AT 0.04 UNITS/MIN FOR HYPOTENSION. NPO R/T AMS. TEMP MATA PATENT/ DRAINING DARK ORANGE URINE W/ COPIOUS AMNTS SEDIMENT. SKIN CONDITION OVERALL INTACT, Q2H REPOSITIONING TO MAINTAIN SKIN INTEGRITY. WILL CONTINUE TO MONITOR & REPORT OFF TO ONCOMING RN.
--- NOTE | 2021-12-22 19:30 | NUR ---
ASSUMED CARE PATIENT LYING IN BED WITH EYES CLOSED, MOVING SELF IN BED SIDE TO SIDE TO REPOSITION SELF. MATA CATHETER IN PLACE DRAINING SILVIA CLEAR URINE TO GRAVITY. LEVO INF @ 12, VASO @ 0.04, LR @ 125ML/HR TO RT IJ CL. CURRENTLY ON RA WITH SPO2 IN MID TO HIGH 90'S. PG TO BOBBY PATENT. REPORT COMPLETED W/ AMINTA SARAH.
[2021-12-23 03:36] LABS: BASOPHILS ABSOLUTE AUTO 0.04 K/mm3 (0.00-0.23); BASOPHILS PERCENT AUTO 0 % (0-2); EOSINOPHILS PERCENT AUTO 0 % (0-6); Hemoglobin 13.3 g/dL (11.5-16.0); IMMATURE GRAN ABSOLUTE AUTO 0.11 K/mm3 (0.00-0.10); IMMATURE GRAN PERCENT AUTO 1 % (0-1); LYMPHOCYTES ABSOLUTE AUTO 2.12 K/mm3 (0.84-5.20); LYMPHOCYTES PERCENT AUTO 13 % (21-46); MONOCYTES PERCENT AUTO 15 % (4-13); Mean Corpuscular HGB 31.1 pg (26.0-34.0); Mean Corpuscular HGB Conc 33.3 g/dL (31.5-36.5); Mean Corpuscular Volume 94 fL (80-100); Mean Platelet Volume 10.7 fL (9.1-12.4); NEUTROPHILS ABSOLUTE AUTO 11.22 K/mm3 (1.96-9.15); NEUTROPHILS PERCENT AUTO 71 % (41-73); Platelet Count 62 K/mm3 (150-400); RDW Coefficient Variation 16.8 % (11.7-14.2); RDW Standard Deviation 57.9 fL (35.1-46.3); Red Blood Cell Count 4.28 M/mm3 (3.80-5.20); White Blood Cell Count 15.89 K/mm3 (4.00-11.30)
[2021-12-23 03:50] LABS: International Normalized Ratio 2.57; Prothrombin Time Results 25.4 Sec (9.7-11.5)
[2021-12-23 03:53] LABS: Magnesium, Blood 1.7 mg/dL (1.6-2.4)
[2021-12-23 03:54] LABS: Alanine Aminotransfer (ALT/SGP 18 U/L (12-78); Albumin, Blood 1.4 g/dL (3.4-5.0); Albumin/Globulin Ratio 0.4 (0.8-1.8); Alk Phos 54 U/L (50-136); Anion Gap 6 mmol/L (6-16); Aspartate Aminotrans (AST/SGOT 47 U/L (12-37); Bilirubin, Total 3.3 mg/dL (0.1-1.0); Blood Urea Nitrogen 18 mg/dL (8-24); CO2, Blood 25 mmol/L (21-32); Calcium, Blood 7.1 mg/dL (8.5-10.1); Chloride, Blood 107 mmol/L (98-108); Globulin, Blood 3.6 g/dL (2.2-4.0); Glomerular Filtration Rate >60 (60-); Glucose, Blood 193 mg/dL (70-99); Potassium, Blood 3.9 mmol/L (3.5-5.5); Sodium, Blood 138 mmol/L (136-145)
--- NOTE | 2021-12-23 06:51 | NUR ---
SHIFT SUMMARY PATIENT REMAINED NONVERBAL T/O SHIFT, BEGINNING TO MAKE NOISES. OPENS EYES TO VERBAL STIMULI AND TRACKS, BUT DOES NOT FOLLOW COMMANDS. ROOM AIR T/O SHIFT WITH SPO2 MID TO HIGH 90'S. LEVOPHED TITRATED DOWN TO 6MCG/MIN AND VASOPRESSIN AT 0.04 UNITS/MIN. LR INF @ 125ML/HR. TEMP MATA PATENT AND DRAINED 260ML OUT OF SILVIA CLEAR URINE. PATIENT STILL NPO D/T CONFUSION. CL AND PG STILL PATENT. LABS SHOWED CALCIUM OF 7.1; CALL MADE TO DR. VASQUES AND ORDERS GIVEN FOR IONIZED CALCIUM LAB DRAW. NO OTHER MAJOR CHAGNES DURING SHIFT.
--- NOTE | 2021-12-23 16:50 | NUR ---
SUMMARY PT RESTING IN BED. PT ABLE TO FOLLOW COMMANDS TO LICENSING DIRECTOR HANDS (VERY WEAK), STICK TONGUE OUT, AND OPEN MOUTH. PT IS NON VERBAL BUT SEEMS TO UNDERSTAND CONVERSATION. WHEN PT TOLD ABOUT NEED TO DO CATH CARE PT POSITIONED SELF IN BED FOR CARE. WILL MAKE EYE CONTACT AT TIMES. REPOSITIONS SELF IN BED FREQUENTLY. ON LEVOPHED AND VASOPRESSIN RUNNING. ATTEMPTED TO TITRATE VASO OFF BUT THAT DID NOT LAST LONG. SEE FLOWSHEET. KEPT PT NPO TODAY DUE TO SLOW TO NO RESPONSE AT TIMES. NO OTHER CHANGES TODAY. NO SIGN OF DISTRESS.
[2021-12-24 03:25] LABS: BASOPHILS ABSOLUTE AUTO 0.03 K/mm3 (0.00-0.23); BASOPHILS PERCENT AUTO 0 % (0-2); EOSINOPHILS ABSOLUTE AUTO 0.13 K/mm3 (0.00-0.68); EOSINOPHILS PERCENT AUTO 1 % (0-6); Hematocrit 31.7 % (33.0-51.0); Hemoglobin 10.5 g/dL (11.5-16.0); IMMATURE GRAN ABSOLUTE AUTO 0.05 K/mm3 (0.00-0.10); IMMATURE GRAN PERCENT AUTO 1 % (0-1); LYMPHOCYTES ABSOLUTE AUTO 2.17 K/mm3 (0.84-5.20); LYMPHOCYTES PERCENT AUTO 22 % (21-46); MONOCYTES ABSOLUTE AUTO 2.02 K/mm3 (0.16-1.47); MONOCYTES PERCENT AUTO 20 % (4-13); Mean Corpuscular HGB 31.3 pg (26.0-34.0); Mean Corpuscular HGB Conc 33.1 g/dL (31.5-36.5); Mean Corpuscular Volume 94 fL (80-100); Mean Platelet Volume 10.6 fL (9.1-12.4); NEUTROPHILS ABSOLUTE AUTO 5.51 K/mm3 (1.96-9.15); NEUTROPHILS PERCENT AUTO 56 % (41-73); RDW Coefficient Variation 16.4 % (11.7-14.2); RDW Standard Deviation 56.9 fL (35.1-46.3); Red Blood Cell Count 3.36 M/mm3 (3.80-5.20); White Blood Cell Count 9.91 K/mm3 (4.00-11.30)
[2021-12-24 03:38] LABS: Platelet Count 37 K/mm3 (150-400)
[2021-12-24 03:50] LABS: Anion Gap 3 mmol/L (6-16); Blood Urea Nitrogen 21 mg/dL (8-24); Bun/Creatinine Ratio 30.3 (12.0-20.0); CO2, Blood 29 mmol/L (21-32); Calcium, Blood 7.4 mg/dL (8.5-10.1); Chloride, Blood 107 mmol/L (98-108); Creatinine, Blood 0.69 mg/dL (0.40-1.00); Glomerular Filtration Rate >60 (60-); Glucose, Blood 139 mg/dL (70-99); Magnesium, Blood 1.7 mg/dL (1.6-2.4); Potassium, Blood 3.5 mmol/L (3.5-5.5); Sodium, Blood 139 mmol/L (136-145)
[2021-12-24 03:56] LABS: Phosphorus, Blood 0.9 mg/dL (2.5-4.9)
--- NOTE | 2021-12-24 06:26 | NUR ---
SHIFT SUMMARY PATIENT SLEPT T/O SHIFT. CL DRESSING CHANGED W/O COMPLICATION. VASOPRESSIN TITRATED OFF @ 0430 AND LEVOPHED TITRATED OFF @ 0445. PRESSURES REMAIN SOFT, BUT MAPS GREATER THAN 60. PATIENT STOPPED REPOSITIONING SELF FREQUENTLY AND EFFICIENTLY, BUT FOLLOWS SIMPLE COMMANDS AND OPENS EYES TO VERBAL STIMULI. NONVERBAL AND DOES NOT MAKE SOUNDS. STARTED ON 2L NC FOR HYPOXIA IN THE MID 70'S-LUNG SOUNDS REMAIN CLEAR. NO BM THIS SHIFT, 350ML OUT OF MATA. LR STILL INF @ 125ML/HR. PG TO JOANIE PATENT. NO OTHER CHANGES DURING SHIFT.
--- NOTE | 2021-12-24 07:11 | NUR ---
Received report from Emily LEMOS. Patient resting on 2L O2 and sats 100%. She opens eyes slightly to verbal stimuli. Patient has RIJ quad lumen CL, dressing intact and site WNL's and is infusing Sodium Phos at 100ml/hr and LR at 125 ml/hr. Systolic soft in the 90's and Levophed and vasopressin on standby. Patient has 16 Fr temp teran draing alfred urine to gravity and temp of 97.4.. Patient has PowerGlide to JOANIE dressing intact and site WNL's and is flushed and SL'd.
--- NOTE | 2021-12-24 09:36 | NUR ---
Dr Crook by and assessed and stopped LR and will have dietary start Clinimix.Patient still opens eyes to verbal stimuli and track, very little extremity movement. VSS. Sodium Phos continues to infuse.
[2021-12-24 11:55] LABS: Hematocrit 36.3 % (33.0-51.0); Hemoglobin 12.4 g/dL (11.5-16.0); Mean Corpuscular HGB 31.7 pg (26.0-34.0); Mean Corpuscular HGB Conc 34.2 g/dL (31.5-36.5); Mean Corpuscular Volume 93 fL (80-100); Mean Platelet Volume 10.2 fL (9.1-12.4); NRBC ABSOLUTE 0.03 K/mm3 (0.00-0.02); NRBC Auto 0.6 /100 WBC (0.0-0.2); RDW Coefficient Variation 16.2 % (11.7-14.2); RDW Standard Deviation 54.9 fL (35.1-46.3); Red Blood Cell Count 3.91 M/mm3 (3.80-5.20)
[2021-12-24 12:00] LABS: Platelet Count 45 K/mm3 (150-400)
--- NOTE | 2021-12-24 12:42 | NUR ---
LR stopped and Clinimix will start after consult. No other change with patient, resting quietly.
--- NOTE | 2021-12-24 13:30 | NUR ---
Patient continues with dialysis. He has been snacking on his lunch slowly. VSS. RFA 20ga IV infusing NS TKO. Medicating for pain per MAR..
--- NOTE | 2021-12-24 14:08 | NUR ---
No significant changes with patient, she remains off pressors and systolics in the 100's. She remains NPO and will start Clinimix this evening. RIJ remains patent and infusing NS TKO.
--- NOTE | 2021-12-24 17:16 | NUR ---
No changes with patient all day. She is alert to verbal stimuli and track, but non-verbal. About and hour ago she was trying some words but non-sensical.He has RIJ dressing intact and site WNL's and is infusing TPN at 55ml/hr and NS TKO. Segura remains patent and has adequate amount alfred colored urine. We gave her a bath and changed linen. She has PowerGlide to JOANIE flushed and SL'd.
--- NOTE | 2021-12-24 19:40 | NUR ---
ASSESSMENT/ASSUMED CARE PT AWAKE WITH EYES OPEN. TRACKING STAFF AROUND THE ROOM AND FOLLOWING SOME INSTURCTIONS SLOWLY. NO VERBAL. LUNGS CLEAR BUT DECREASED IN THE BASES ON 2 LITERS O2 VIA NC. RESP EVEN AND NONLABORED. HEART RATE REGULAR SINUS RHYTHM IN THE 70'S. BP STABLE. BT+ HYPOACTIVE. ABD SOFT AND NONTENDER. PT NPO AT THIS TIME EVENING PO MEDS HELD. CENTRAL LINE TO RIGHT IJ DRSG INTACT. NS AT 10 ML/HR AND CPN AT 55 ML/HR VIA CENTRAL LINE INFUSING WITHOUT DIFFICULTY. POWER GLIDE TO LEFT UPPER ARM SALINE LOCKED. SITE CLEAR. ABLE TO DRAW BLOOD WITHOUT DIFFICULTY. DRSG INTACT. MATA CATH PATENT DRAINING DARK YELLOW/SILVIA URINE. PT BOOSTED IN BED AND REPOSITIONED. BED ALARM ON.
--- NOTE | 2021-12-24 22:22 | NUR ---
HYPOTENSION PT SLEEPING. BP 87/48 WITH MAP 60. STARTED LEVOPHED AT 2 MCQ/HR
[2021-12-25 03:50] LABS: BASOPHILS ABSOLUTE AUTO 0.06 K/mm3 (0.00-0.23); BASOPHILS PERCENT AUTO 1 % (0-2); EOSINOPHILS PERCENT AUTO 3 % (0-6); Hematocrit 31.3 % (33.0-51.0); Hemoglobin 10.7 g/dL (11.5-16.0); IMMATURE GRAN ABSOLUTE AUTO 0.03 K/mm3 (0.00-0.10); IMMATURE GRAN PERCENT AUTO 1 % (0-1); LYMPHOCYTES ABSOLUTE AUTO 1.41 K/mm3 (0.84-5.20); LYMPHOCYTES PERCENT AUTO 22 % (21-46); MONOCYTES ABSOLUTE AUTO 1.33 K/mm3 (0.16-1.47); MONOCYTES PERCENT AUTO 21 % (4-13); Mean Corpuscular HGB 31.8 pg (26.0-34.0); Mean Corpuscular HGB Conc 34.2 g/dL (31.5-36.5); Mean Corpuscular Volume 93 fL (80-100); Mean Platelet Volume 9.6 fL (9.1-12.4); NEUTROPHILS PERCENT AUTO 53 % (41-73); RDW Coefficient Variation 15.9 % (11.7-14.2); Red Blood Cell Count 3.37 M/mm3 (3.80-5.20); White Blood Cell Count 6.43 K/mm3 (4.00-11.30)
[2021-12-25 03:52] LABS: Platelet Count 42 K/mm3 (150-400)
[2021-12-25 04:05] LABS: Alanine Aminotransfer (ALT/SGP 20 U/L (12-78); Albumin, Blood 1.4 g/dL (3.4-5.0); Albumin/Globulin Ratio 0.4 (0.8-1.8); Alk Phos 47 U/L (50-136); Anion Gap 2 mmol/L (6-16); Aspartate Aminotrans (AST/SGOT 48 U/L (12-37); Bilirubin, Total 3.8 mg/dL (0.1-1.0); Blood Urea Nitrogen 12 mg/dL (8-24); Bun/Creatinine Ratio 21.1 (12.0-20.0); CO2, Blood 31 mmol/L (21-32); Calcium, Blood 7.7 mg/dL (8.5-10.1); Chloride, Blood 109 mmol/L (98-108); Creatinine, Blood 0.57 mg/dL (0.40-1.00); Globulin, Blood 3.4 g/dL (2.2-4.0); Glomerular Filtration Rate >60 (60-); Glucose, Blood 150 mg/dL (70-99); Magnesium, Blood 1.6 mg/dL (1.6-2.4); Phosphorus, Blood 1.3 mg/dL (2.5-4.9); Sodium, Blood 142 mmol/L (136-145); Total Protein, Blood 4.8 g/dL (6.4-8.2); Triglycerides 102 mg/dL (30-160)
--- NOTE | 2021-12-25 04:20 | NUR ---
LABS NOTIFIED DR VASQUES REGARDING ABNORMAL LABS. AWAITING ORDERS
--- NOTE | 2021-12-25 06:07 | NUR ---
SHIFT SUMMARY PT RESTING QUIELTY AT THIS TIME. PT NONVERBAL DURING THE NIGHT. TRYING TO SAY WORDS THIS MORNING BUT SPEECH VERY SLURRED AND MUMBLED. PT TURNED Q2HRS. BED ALARM ON. PT OPENING EYES AND TRACKING STAFF IN THE ROOM BUT NOT FOLLOWING INSTRUCTIONS. LUNGS CLEAR BUT DECREASED TO THE BASES ON 2 LITERS O2 VIA NC. SPO2 99-100% WHEN ON O2 BUT DROPS DOWN TO 88-89% ON ROOMAIR. RESP EVEN AND NONLABORED. HEART RATE REGULAR. BP HYPOTENSIVE DURING THE NIGHT, RESTARTED LEVOPHED AT 2 MCQ/HR. BP NOW STABLE. BT+ HYPOACTIVE. PT NPO. CENTRAL LINE TO RIGHT IJ WITH CPN AT 55 ML/HR, NS AT 10 ML/HR AND LEVOPHED AT 2 MCQ/HR. PHOS DOWN TO 1.3 AND POTASSIUM 3.0. KPHOS 30 MMOL INFUSING VIA CENTAL LINE. POWER GLIDE TO LEFT UPPER ARM SALINE LOCKED, DRSG CHANGED, SITE WITH BRUISING NOTED. REPORT TO ON COMING NURSE
--- NOTE | 2021-12-25 07:29 | NUR ---
ASSUMED CARE: PT RESTING IN BED, TRACKS WHEN STAFF IS IN ROOM BUT DOES NOT FOLLOW COMMANDS. 2L O2 VIA NC, SATTING 98%. 2 MCG LEVOPHED FOR BPS. NSR AT THIS TIME ON TELE. NO ACUTE NEEDS AT THIS TIME.
--- NOTE | 2021-12-25 08:30 | NUR ---
DR KOENIG AT BEDSIDE AND AWARE THAT PT HAS BEEN UNABLE TO FOLLOW COMMANDS AND HAS NOT BEEN ALERT ENOUGH TO SAFELY SWALLOW, THEREFORE CANNOT ADMINISTER PO MEDS. PT WAS ABLE TO SQUEEZE FINGERS OF RIGHT HAND FOR DOCTOR KOENIG. PLANNING ON ORDERING SPEECH EVALUATION WHEN PT ABLE TO PARTICIPATE.
[2021-12-25 15:20] LABS: Percent Saturation 37.5 % (15.0-50.0)
--- NOTE | 2021-12-25 17:56 | NUR ---
SHIFT SUMMARY: PT RESTING IN BED, RESTLESS AT TIMES. MOVING AROUND BED BUT NOT ATTEMPTING TO CLIMB OUT. REMOTE MONITOR IN PLACE. LEVOPHED AT 3MCG/KG WITH BP STABLE AT THIS TIME. CPN FOR NUTRITION THROUGH CENTRAL LINE. DR KOENIG CHECKED ON PT TWICE WITH HOPES THAT THE PT ROUSES, SHE WILL BE ABLE TO TAKE PO AND GET INTO RECLINER. 2L O2 IN PLACE VIA NC. NO ACUTE NEEDS AT THIS TIME.
--- NOTE | 2021-12-25 19:30 | NUR ---
ASSESSMENT/ASSUMED CARE PT AWAKE, EYES OPEN AND TRACKING STAFF AROUND THE ROOM. FOLLOWS INSTRUCTIONS SLOWLY. SWITCHBOARD INSPECTOR WEAK. PT TRYING TO TALK, BUT SPEECH VERY SLOW AND MUMBLED. HARD TO UNDERSTAND. LUNGS CLEAR AND DECREASED IN THE BASES ON 2 LITERS O2 VIA NC. RESP EVEN AND NONLABORED. HEART RATE REGULAR, SINUS IN THE 70-90'S. BP STABLE ON LEVOPHED AT 2 MCQ/HR VIA CENTRAL LINE TO RIGHT IJ. BT+ ABD SOFT AND NONTENDER. PT NPO UNTIL ABLE TO PROTECT AIRWAY. POWER GLIDE TO LEFT UPPER ARM SALINE LOCKED, DRSG INTACT. SITE CLEAR. CENTRAL LINE TO RIGHT IJ, DRSG INTACT AND SITE CLEAR. FLEXO OPERATOR AT 55 ML/HR, NS AT 10 ML/HR AND LEVOPHED AT 2 MCQ/HR. MATA CATH PATENT DRAINING SILVIA/YELLOW URINE. CATH CARE DONE. PT REPOSITIONED AND BED ALARM ON.
[2021-12-26 03:50] LABS: BASOPHILS ABSOLUTE AUTO 0.07 K/mm3 (0.00-0.23); BASOPHILS PERCENT AUTO 1 % (0-2); EOSINOPHILS ABSOLUTE AUTO 0.12 K/mm3 (0.00-0.68); EOSINOPHILS PERCENT AUTO 2 % (0-6); Hematocrit 29.9 % (33.0-51.0); Hemoglobin 10.3 g/dL (11.5-16.0); IMMATURE GRAN ABSOLUTE AUTO 0.03 K/mm3 (0.00-0.10); IMMATURE GRAN PERCENT AUTO 1 % (0-1); LYMPHOCYTES ABSOLUTE AUTO 1.54 K/mm3 (0.84-5.20); LYMPHOCYTES PERCENT AUTO 28 % (21-46); MONOCYTES ABSOLUTE AUTO 1.35 K/mm3 (0.16-1.47); MONOCYTES PERCENT AUTO 25 % (4-13); Mean Corpuscular HGB 31.8 pg (26.0-34.0); Mean Corpuscular HGB Conc 34.4 g/dL (31.5-36.5); Mean Corpuscular Volume 92 fL (80-100); Mean Platelet Volume 10.2 fL (9.1-12.4); NEUTROPHILS ABSOLUTE AUTO 2.36 K/mm3 (1.96-9.15); NEUTROPHILS PERCENT AUTO 43 % (41-73); RDW Coefficient Variation 15.7 % (11.7-14.2); RDW Standard Deviation 52.9 fL (35.1-46.3); Red Blood Cell Count 3.24 M/mm3 (3.80-5.20); White Blood Cell Count 5.47 K/mm3 (4.00-11.30)
--- NOTE | 2021-12-26 03:56 | NUR ---
PT REPOSITIONED IN BED. MOVING EXT SLOWLY. SPEECH QUIET AND SLOW BUT ABLE TO UNDERSTAND. PT ASKED FOR "WATER". TEA SPOONS OF WATER GIVEN WITHOUT DIFFICULTY. BED ALARM ON.
[2021-12-26 04:07] LABS: Platelet Count 39 K/mm3 (150-400)
[2021-12-26 04:14] LABS: Albumin, Blood 1.5 g/dL (3.4-5.0); Anion Gap 1 mmol/L (6-16); Blood Urea Nitrogen 11 mg/dL (8-24); Bun/Creatinine Ratio 20.5 (12.0-20.0); CO2, Blood 33 mmol/L (21-32); Calcium, Blood 7.8 mg/dL (8.5-10.1); Chloride, Blood 108 mmol/L (98-108); Creatinine, Blood 0.54 mg/dL (0.40-1.00); Glomerular Filtration Rate >60 (60-); Glucose, Blood 148 mg/dL (70-99); Magnesium, Blood 1.4 mg/dL (1.6-2.4); Phosphorus, Blood 2.2 mg/dL (2.5-4.9); Potassium, Blood 3.2 mmol/L (3.5-5.5); Sodium, Blood 142 mmol/L (136-145)
--- NOTE | 2021-12-26 05:48 | NUR ---
SHIFT SUMMARY PT RESTING QUIETLY AT THIS TIME. PT MOVING MORE DURING THE NIGHT. SPEECH HAS GONE FROM MUMBLED AND UNABLE TO UNDERSTAND, TO SLOW BUT ABLE TO SAY WORDS CLEARLY AT TIMES. FOLLOWING SOME INSTRUCTIONS. TEAROOM HOSTESS WEAK BUT EQUEAL. PT HAS BEEN TITRATED OFF LEVOPHED DURING THE NIGHT. BED ALARM ON. VSS. ABNORMAL LABS THIS AM KPHOS AND MAG BEING REPLACED. BEDSIDE SWALLOW EVAL DONE. PT TAKING TEA SPOONS OF WATER WITHOUT DIFFICULTY. PO MEDS CONT TO BE HELD UNTIL SPEECH STRONGER. REPORT TO ON COMING NURSE
[2021-12-26 11:02] LABS: Phosphorus, Blood 2.7 mg/dL (2.5-4.9); Potassium, Blood 3.5 mmol/L (3.5-5.5)
--- NOTE | 2021-12-26 17:42 | NUR ---
SUMMARY PT WILL OPEN EYE'S SPONTANEOUSLY. NON VERBAL ALL DAY. EVERY NOW AND THEN WILL MOAN IF SHE IS TRYING TO SPEAK. WILL MEDICAL BILLING SUPERVISOR HANDS ON COMMAND, HOLDS ARMS OFF OF BED WHEN ASKED, AND WILL MOVE FEET ON COMMAND. WILL TRACK WITH EYE'S. MOVES SELF IN BED FREQUENTLY. CT HEAD ORDERED BY DR. CALIXTO TODAY. HAS BEEN OFF LEVOPHED ALL DAY. STILL NPO DUE TO MENTATION. CPN FORMULA CHANGED TODAY. NO OTHER CHANGES TODAY.
--- NOTE | 2021-12-26 19:20 | NUR ---
ASSUMED CARE PATIENT LYING IN BED OPENING EYES SPONTANEOUSLY TO LOOK AROUND ROOM. ATTEMPTS TO SIT UP IN BED BUT APPEARS WEAK. GRUNTS WHEN STAFF SPEAKS TO HER, NO WORDS FORMED. NS TKO AND CPN INF AT GOAL RATE OF 55ML/HR TO RT IJ CENTRAL LINE; LEVOPHED OFF. PICC TO BOBBY AND PG TO JOANIE FLUSHES AND PULLS BLOOD. TEMP MATA PATENT AND DRAINING DARK YELLOW CLEAR URINE TO GRAVITY. ON ROOM AIR WITH SPO2 @ 96%. BP AND HHR STABLE. REPORT COMPLETED WITH AMINTA GALO.
[2021-12-27 04:44] LABS: BASOPHILS ABSOLUTE AUTO 0.07 K/mm3 (0.00-0.23); BASOPHILS PERCENT AUTO 1 % (0-2); EOSINOPHILS ABSOLUTE AUTO 0.21 K/mm3 (0.00-0.68); EOSINOPHILS PERCENT AUTO 3 % (0-6); Hematocrit 30.9 % (33.0-51.0); Hemoglobin 10.5 g/dL (11.5-16.0); IMMATURE GRAN ABSOLUTE AUTO 0.03 K/mm3 (0.00-0.10); IMMATURE GRAN PERCENT AUTO 1 % (0-1); LYMPHOCYTES ABSOLUTE AUTO 1.79 K/mm3 (0.84-5.20); LYMPHOCYTES PERCENT AUTO 27 % (21-46); MONOCYTES ABSOLUTE AUTO 1.85 K/mm3 (0.16-1.47); MONOCYTES PERCENT AUTO 28 % (4-13); Mean Corpuscular HGB 31.7 pg (26.0-34.0); Mean Corpuscular Volume 93 fL (80-100); Mean Platelet Volume 10.2 fL (9.1-12.4); NEUTROPHILS ABSOLUTE AUTO 2.63 K/mm3 (1.96-9.15); NEUTROPHILS PERCENT AUTO 40 % (41-73); RDW Coefficient Variation 15.9 % (11.7-14.2); RDW Standard Deviation 53.3 fL (35.1-46.3); Red Blood Cell Count 3.31 M/mm3 (3.80-5.20); White Blood Cell Count 6.58 K/mm3 (4.00-11.30)
[2021-12-27 04:52] LABS: Platelet Count 47 K/mm3 (150-400)
[2021-12-27 05:15] LABS: Alanine Aminotransfer (ALT/SGP 22 U/L (12-78); Albumin, Blood 1.6 g/dL (3.4-5.0); Albumin/Globulin Ratio 0.4 (0.8-1.8); Alk Phos 57 U/L (50-136); Anion Gap 3 mmol/L (6-16); Aspartate Aminotrans (AST/SGOT 52 U/L (12-37); Bilirubin, Total 4.5 mg/dL (0.1-1.0); Blood Urea Nitrogen 10 mg/dL (8-24); Bun/Creatinine Ratio 22.6 (12.0-20.0); CO2, Blood 31 mmol/L (21-32); Chloride, Blood 106 mmol/L (98-108); Creatinine, Blood 0.44 mg/dL (0.40-1.00); Globulin, Blood 3.7 g/dL (2.2-4.0); Glomerular Filtration Rate >60 (60-); Glucose, Blood 157 mg/dL (70-99); Magnesium, Blood 1.7 mg/dL (1.6-2.4); Phosphorus, Blood 2.4 mg/dL (2.5-4.9); Potassium, Blood 3.6 mmol/L (3.5-5.5); Sodium, Blood 140 mmol/L (136-145); Total Protein, Blood 5.3 g/dL (6.4-8.2)
--- NOTE | 2021-12-27 05:49 | NUR ---
SHIFT SUMMARY PATIENT HAD INTERMITTENT EPISODES OF VERBALIZING FEW WORDS TO STAFF SUCH "YES" AND "[place]". FOLLOWED MOST COMMANDS, BUT HAD PERIODS WHEN SHE WOULD NOT. TRACKED T/O SHIFT AND SHIFTED IN BED; REQUIRED REPOSITIONING TO PREVENT PRESSURE INJURIES. WHEN PATIENT WAS REPOSITIONED TO RT SIDE LYING RHYTHM SHOWED INCREASE IN PVC'S AND NONSUSTAINED VTACH. CL LEFT IN PLACE D/T CRITICALLY LOW PLT IN 30'S-40'S. NS TKO AND TPN SWITCHED TO PICC. PG STILL PATENT TO JOANIE. MATA DRAINED 650ML OF DARK YELLOW URINE. LABS SHOWED LOW CALCIUM, BUT NORMAL IONIZED CA; LOW PHOS FOR WHICH DR. VASQUES ORDERED K-PHOS IV. NO OTHER CHANGES DURING SHIFT.
--- NOTE | 2021-12-27 14:46 | NUR ---
SUMMARY FOR ICU PT AWAKE. NON VERBAL FOR THE MOST PART. THIS AM SHE WAS ABLE TO MOUTH THE WORDS "GOOD MORNING" WHEN RN ENTERED THE ROOM. ABLE TO FOLLOW COMMANDS TO UNEMPLOYMENT CLAIMS ADJUDICATOR HANDS, MOVE FEET, OPEN MOUTH AND TRACK WITH EYE'S. REPLIES "OW" TO PAINFUL STIMULUS. DR. CALIXTO SAW PT THIS AM AND BELIEVES SHE HAS WERNICKE'S. THIAMINE IV STARTED TODAY. SINCE THIAMINE PT IS MOVING AROUND MORE. SHE WAS ABLE TO SAY "I CAN'T STAND IT" WHEN PRESSURE WAS BEING HELD TO [facility] WHEN CENTRAL LINE WAS REMOVED. NO ISSUES WITH REMOVING CENTAL LINE AND ACCESS SITE WAS COVERED WITH OCCLUSIVE DRESSING AFTER 10 MINS OF PRESSURE HELD. PT WAS DOWNGRADED TO PCU STATUS. BEFORE PT WAS MOVED TO PCU PT HAD ROLLED TO HER STOMACH AND IN THE MEAN TIME HAD BROKEN THE POWERGLIDE AT THE Y SITE. NOTICED IT QUICKLY AND ONLY A LITTLE BLOOD LOST. REMOVED THE LINE, CLEANSED SITE, AND PLACED DRESSING. REPORT GIVEN TO DENIAL MANAGEMENT REPRESENTATIVE NO SIGN OF DISTRESS ON HER WAY TO PCU.
--- NOTE | 2021-12-27 16:51 | NUR ---
TRANSFER UPDATE/ ASSUMPTION OF CARE REPORT RECIEVED FROM CNC CUTTING OPERATOR AT 1418. PT ARRIVED TO PCU 10 AT 1440 VIA HOSPTIAL BED AND OCCOMPANED BY RN AND 2 OTHER STAFF MEMBERS. PT SLID OVER TO PCU BED VIA SLIDE SHEET AND 6 STAFF MEMBERS. UPON ARRIVAL TO UNIT, PT EYES ARE OPEN BUT PT NOT RESPONDING TO WHEN SPOKEN TO. VSS UPON ARRIVAL WITH O2 SAT OF 95% ON RA. AFTER SETTLING PT IN ROOM 8, PT BEGAN ROLLING AROUND IN BED SETTING OFF BED ALARM MULTIPLE TIMES. PT BLANKETS AND GOWN NO LONGER COVERING PT. DUE TO PT PRIVACY AND THE NEED FOR CONSTANT VISUAL OF PT, PT WAS MOVE FROM PCU 10 TO PCU 8 IN ORDER TO HAVE PT ON CAMERA. LUNG SOUNDS ARE CLEAR TO DIM. MATA IN PLACE DRAINING TO GRAVITY, DARK YELLOW/SILVIA. PT HAS TRACE EDEMA OF BLE. CNC CUTTING OPERATOR REPORTED WHEN PT ARRIVED TO PCU THAT PT POWERGLIDE THAT WAS LEAKING RIGHT BEFORE TRANSFER AND THAT THE POWERGLIDE WAS REMOVED. PICC LINE IN BOBBY INFUSING TPN PER EMAR.
--- NOTE | 2021-12-28 19:30 | NUR ---
SHIFT SUMMARY PT REMAINED LETHARGIC THROUGHOUT THE DAY, AT TIMES WOULD OPEN HER EYES TO VERBAL STIMULUS. PATIENT WAS ABLE TO STATE HER LAST NAME THIS MORNING, WHEN THE PATIENT'S FAMILY VISITED THIS AFTERNOON THE PATIENT WAS ABLE TO OPEN HER EYES AND SAY "HI", OTHERWISE THE PATIENT ONLY MUMBLED INCOHERENTLY T/O THE SHIFT. NOT ABLE TO FOLLOW COMMANDS, REPOSITIONED T/O SHIFT. TPN RUNNING PER EMAR. VSS. THIS MORNING THIS RN ENTERED THE ROOM AND SAW THAT THE PATIENT WAS POSTURED WITH ARMS STIFF AND EXTENDED, FACE CLENCHED WITH EYES CLOSED, AND HOLDING HER BREATH. THIS LASTED FOR APPROX. 10 SECONDS, THEN PATIENT RELAXED ARMS OPENED EYES AND STARTED BREATHING AGAIN. OCCURED A SECOND TIME. NOTIFIED DR. AYON, PLAN IS FOR EEG TOMORROW.
[2021-12-29 04:08] LABS: Alanine Aminotransfer (ALT/SGP 19 U/L (12-78); Albumin, Blood 1.5 g/dL (3.4-5.0); Albumin/Globulin Ratio 0.4 (0.8-1.8); Alk Phos 57 U/L (50-136); Anion Gap 3 mmol/L (6-16); Aspartate Aminotrans (AST/SGOT 52 U/L (12-37); Blood Urea Nitrogen 8 mg/dL (8-24); Bun/Creatinine Ratio 14.7 (12.0-20.0); CO2, Blood 29 mmol/L (21-32); Calcium, Blood 8.4 mg/dL (8.5-10.1); Chloride, Blood 109 mmol/L (98-108); Creatinine, Blood 0.55 mg/dL (0.40-1.00); Globulin, Blood 3.8 g/dL (2.2-4.0); Glomerular Filtration Rate >60 (60-); Glucose, Blood 143 mg/dL (70-99); Potassium, Blood 3.7 mmol/L (3.5-5.5); Sodium, Blood 141 mmol/L (136-145); Total Protein, Blood 5.3 g/dL (6.4-8.2)
--- NOTE | 2021-12-29 18:06 | NUR ---
SHIFT SUMMARY PT ALERT AND ABLE TO ANSWER FEW YES/NO QUESTIONS. TRACKS WITH EYES TO SOME SOUNDS AND SOMETIMES WHEN SHE IS BEING TALKED TO. ANSWERED YES WHEN ASKED IF FEELING ANY PAIN, UNABLE TO SAY WHERE OR SHOW WHERE. PT ALSO ANSWERED YES WHEN ASKED IF PT WAS COLD, BLANKET FROM WARMER APPLIED. EEG PERFORMED TODAY, AWAITING RESULTS. PT SEEN BY SPEECH THERAPY, PT FAILED SWALLOW EVAL. VSS THROUGHOUT SHIFT WITH O2 SATS >98% ON RA. PT PERIODICALLY TURNED SELF THROUGHOUT DAY, ON CAMERA. MATA IN PLACE DRAINING TO GRAVITY, DARK SILVIA. PT SEEN BY OT, DID NOT COOPERATE.
[2021-12-30 05:05] LABS: Alanine Aminotransfer (ALT/SGP 18 U/L (12-78); Albumin, Blood 1.6 g/dL (3.4-5.0); Albumin/Globulin Ratio 0.5 (0.8-1.8); Alk Phos 57 U/L (50-136); Anion Gap 3 mmol/L (6-16); Aspartate Aminotrans (AST/SGOT 55 U/L (12-37); Bilirubin, Total 3.8 mg/dL (0.1-1.0); Blood Urea Nitrogen 10 mg/dL (8-24); Bun/Creatinine Ratio 22.5 (12.0-20.0); CO2, Blood 28 mmol/L (21-32); Calcium, Blood 8.3 mg/dL (8.5-10.1); Chloride, Blood 109 mmol/L (98-108); Creatinine, Blood 0.45 mg/dL (0.40-1.00); Globulin, Blood 3.5 g/dL (2.2-4.0); Glomerular Filtration Rate >60 (60-); Glucose, Blood 137 mg/dL (70-99); Potassium, Blood 3.4 mmol/L (3.5-5.5); Sodium, Blood 140 mmol/L (136-145); Total Protein, Blood 5.1 g/dL (6.4-8.2)
--- NOTE | 2021-12-30 06:19 | NUR ---
SHIFT SUMMARY ASSUMED CARE OF PT AT 1900. PT IS ALERT AT TIMES BUT WILL NOT ANSWER ORIENTATION QUESTIONS. PT SAID ONE WORD "YES" CLEARLY WHEN ASKED IF SHE WANTED A PILLOW. HEART SOUNDS REGULAR, LUNG SOUNDS CLEAR. PT MATA IS DRAINING SILVIA COLORED URINE. PT ABLE TO ROLL HERSELF AROUND IN BED. PT WILL FOLLOW SOME DIRECTIONS BUT NOT ALL OF THEM, FOR EXAMPLE, PT WAS ABLE TO LIFT HEAD FOR PILLOW, BUT WOULD NO MOVE HER ARM FOR THE LINE DRAW THIS AM.
--- NOTE | 2021-12-30 07:23 | NUR ---
ASSUMED CARE: PT RESTING QUIETLY AT THIS TIME. NSR ON TELE, REMOTE MONITOR IN PLACE FOR SAFETY. CPN RUNNING THROUGH PICC LINE. NO ACUTE NEEDS OR CONCERNS AT THIS TIME.
--- NOTE | 2021-12-30 09:49 | NUR ---
PT'S DAUGHTERS AT BEDSIDE. THEY STATE THEY WERE UPDATED BY CASE MANAGEMENT AND DENIED FURTHER QUESTIONS. OT AT BEDSIDE AT THIS TIME ATTEMPTING TO SEE PT. NO ACUTE NEEDS AT THIS TIME.
--- NOTE | 2021-12-30 13:27 | NUR ---
PT WAS AWAKE ENOUGH TO ASK RESIDENTIAL SALES FOR WATER. CALL TO SPEECH THERAPY AND MESSAGE LEFT TO LET SPEECH KNOW THAT NOW IS A GOOD TIME FOR EVALUATION
--- NOTE | 2021-12-30 18:00 | NUR ---
SHIFT SUMMARY: PT RECIEVED 2 LACTULOSE ENEMAS THIS SHIFT AND WOKE UP AND BECAME VERY ACTIVE. SHE WAS CLIMBING ON ALL FOURS, SETTING OFF BED ALARM, SWINGING LEGS TO SIDE OF BED BETWEEN BED RAILS AND REMOTE MONITORING CALLED TO REPORT THIS. PT SPOKE TO STAFF SAYING WORDS SUCH "I NEED TO GET UP" AND "I NEED TO GO TO THE BATHROOM." CALL TO SPEECH TO EVALUATE BUT SPEECH WAS UNAVAILABLE BEFORE END OF SHIFT. BED ALARM AND CAMERA REMAINS ON. TPN VIA PICC LINE. NO FURTHER NEEDS AT THIS TIME.
--- NOTE | 2021-12-31 06:04 | NUR ---
SHIFT SUMMARY ASSUMED CARE OF PT AT 1900. PT IS ALERT AT TIMES. PT AWOKE THIS AM ASKING FOR HER GLASSES. PT WAS ABLE TO SAY SOME SENTENCES AND MAKE SOME NEEDS KNOWN. PT C/O HEADACHE, TYLENOL ORDERED. PT ROLLS IN BED FREQUENTLY. PT HAS MATA, DRAINING WITH GRAVITY. URINE IS SILVIA COLORED.
--- NOTE | 2021-12-31 09:25 | NUR ---
DARK RED BLOOD AND A FEW CLOTS NOTED IN PT'S LIQUID STOOL POST LACTULOSE ENEMA. DR AYON NOTIFIED, ORDERS TO CONTINUE TO MONITOR AND NOTIFY HER OF ANY CHANGES OR FURTHER BLEEDING.
[2021-12-31 10:09] LABS: Anion Gap 5 mmol/L (6-16); Blood Urea Nitrogen 10 mg/dL (8-24); Bun/Creatinine Ratio 23.4 (12.0-20.0); CO2, Blood 27 mmol/L (21-32); Calcium, Blood 8.5 mg/dL (8.5-10.1); Chloride, Blood 108 mmol/L (98-108); Creatinine, Blood 0.43 mg/dL (0.40-1.00); Glomerular Filtration Rate >60 (60-); Glucose, Blood 160 mg/dL (70-99); Magnesium, Blood 1.6 mg/dL (1.6-2.4); Potassium, Blood 3.5 mmol/L (3.5-5.5); Sodium, Blood 140 mmol/L (136-145)
--- NOTE | 2021-12-31 12:41 | NUR ---
DR AYON NOTIFIED THAT PT PASSED HER SWALLOW EVALUATION THIS AM. PT IS NOW ABLE TO TAKE PO MEDICATIONS, LACTULOSE OR CHANGED TO LACTULOSE PO PER TELEPHONE ORDER. PT TOLERATED LUNCH WELL, SHE IS A FEEDER, AND ATE 25%.
--- NOTE | 2021-12-31 14:23 | NUR ---
PHYSICAL THERAPY IN TO WORK WITH PT. PT ABLE TO WALK IN ROOM WITH GAIT BELT AND FWW, CAN FOLLOW SIMPLE COMMANDS, SLOW TO RESPOND. PT ABLE TO SPEAK AND TELL STAFF THAT SHE NEEDED TO USE THE COMMODE TO HAVE A BOWEL MOVEMENT. BRIGHT RED BLOOD AGAIN NOTED IN STOOL, DR AYNO NOTIFIED, ORDERS TO DISCONTINUE ANY BLOOD THINNERS AND CONTINUE TO MONITOR. PT BACK TO BED AFTER WORKING WITH PHYSICAL THERAPY, BED ALARM ON, CALL LIGHT IN REACH AND CAMERA MONITOR ON FOR SAFETY.
--- NOTE | 2021-12-31 16:46 | NUR ---
PATIENT ARRIVED TO ROOM 352 AT 16:05. ALERT AND AWAKE, ABLE TO FOLLOW SIMPLE COMMANDS. CONTINUES ON TPN. PER REPORT MATA CATHETER WAS D/C'C AT 15:30, PATIENT DTYV AT 21:30. MONITOTING FIR BLOODY STOOLS. PATIENT IN BED COMFORTABLE, DENIES PAIN OR DISCOMFORT. CALL LIGHT WITHIN TREACH.
--- NOTE | 2021-12-31 23:38 | NUR ---
BLADDER SCANNED 422, STRAIGHT CATHED 440ML, TOLERATED WELL.
[2022-01-01 05:16] LABS: BASOPHILS ABSOLUTE AUTO 0.09 K/mm3 (0.00-0.23); BASOPHILS PERCENT AUTO 1 % (0-2); EOSINOPHILS ABSOLUTE AUTO 0.27 K/mm3 (0.00-0.68); EOSINOPHILS PERCENT AUTO 4 % (0-6); Hematocrit 30.9 % (33.0-51.0); Hemoglobin 10.3 g/dL (11.5-16.0); IMMATURE GRAN ABSOLUTE AUTO 0.02 K/mm3 (0.00-0.10); IMMATURE GRAN PERCENT AUTO 0 % (0-1); LYMPHOCYTES ABSOLUTE AUTO 1.59 K/mm3 (0.84-5.20); LYMPHOCYTES PERCENT AUTO 24 % (21-46); MONOCYTES ABSOLUTE AUTO 0.94 K/mm3 (0.16-1.47); MONOCYTES PERCENT AUTO 14 % (4-13); Mean Corpuscular HGB 31.9 pg (26.0-34.0); Mean Corpuscular HGB Conc 33.3 g/dL (31.5-36.5); Mean Corpuscular Volume 96 fL (80-100); Mean Platelet Volume 10.9 fL (9.1-12.4); NEUTROPHILS PERCENT AUTO 57 % (41-73); RDW Coefficient Variation 16.3 % (11.7-14.2); RDW Standard Deviation 57.1 fL (35.1-46.3); Red Blood Cell Count 3.23 M/mm3 (3.80-5.20); White Blood Cell Count 6.71 K/mm3 (4.00-11.30)
--- NOTE | 2022-01-01 05:29 | NUR ---
PATIENT ALERT TO SELF. STATED SHE HASN'T BEEN TAKING HER LATUDA. IMPULSIVE THROUGH NIGHT, ATTEMPTING TO GET OUT OF BED, STATES SHE WANTS TO GO HOME. FLUIDS ENCOURAGED AT BEDSIDE, TOLERATING WELL. SAFETY MAINTAINED, CALL LUCERO IN REACH.
[2022-01-01 05:34] LABS: Platelet Count 38 K/mm3 (150-400)
[2022-01-01 05:43] LABS: Magnesium, Blood 1.7 mg/dL (1.6-2.4); Phosphorus, Blood 3.3 mg/dL (2.5-4.9)
[2022-01-01 05:50] LABS: Alanine Aminotransfer (ALT/SGP 27 U/L (12-78); Albumin, Blood 1.7 g/dL (3.4-5.0); Albumin/Globulin Ratio 0.4 (0.8-1.8); Alk Phos 77 U/L (50-136); Anion Gap 4 mmol/L (6-16); Aspartate Aminotrans (AST/SGOT 66 U/L (12-37); Bilirubin, Total 3.4 mg/dL (0.1-1.0); Blood Urea Nitrogen 11 mg/dL (8-24); Bun/Creatinine Ratio 22.7 (12.0-20.0); CO2, Blood 30 mmol/L (21-32); Calcium, Blood 8.6 mg/dL (8.5-10.1); Chloride, Blood 107 mmol/L (98-108); Creatinine, Blood 0.48 mg/dL (0.40-1.00); Globulin, Blood 4.3 g/dL (2.2-4.0); Glomerular Filtration Rate >60 (60-); Glucose, Blood 124 mg/dL (70-99); Potassium, Blood 3.6 mmol/L (3.5-5.5); Sodium, Blood 141 mmol/L (136-145); Triglycerides 93 mg/dL (30-160)
--- NOTE | 2022-01-01 06:11 | NUR ---
Patient voided 400ml, post void bladder scan 295.
--- NOTE | 2022-01-01 12:05 | NUR ---
ALERT AND ORIENTED TO SELF, ABLE TO FOLLOW SIMPLE COMMANDS. PTL COUNT 38 THIS MORNING, DR. AYON NOTIFIED. TPN D/C'S, [facility] SO[facility] DI[facility], THIN LIQUIDS. CONTINUE TO MONITOR FOR URINARY RETENTION. BLADDER SCAN SHOWS 295 ML URINE AT THIS TIME. HAD A BM THIS MORNING, MINIMUM AMOUNT OF BLOOD NOTED. WILL CONTINUE TO MONITOR.
--- NOTE | 2022-01-02 04:26 | NUR ---
ALERT TO SELF. PATIENT CONTINUOUSLY ATTEMPTING TO GET OOB. MULTIPLE REDIRECTING PATIENT, REMAINED VERY IMPULSIVE WITH INCREASED ANXIOUSNESS. MEDICATED WITH HALDOL IM AND ATIVAN IV, NON EFFECTIVE, REMAINED ANXIOUS AND IMPULSIVE. RECEIVED ORDER FOR POSE VEST, VEST CURRENTLY IN PLACE. SKIN CHECK COMPLETE. SAFETY MAINTAINED.
--- NOTE | 2022-01-02 08:00 | NUR ---
PT PLEASANT CONFUSED. VERY QUIET, SLOW TO RESPOND. STATES NAME, STATES HAS 4 GIRLS. ONLY GIVES SIMPLE ANSWERS. H/R REG, NO MURMER NOTED. NO TELE. LUNGS CLEAR, RESP EASY, UNLABORED, ON R.A. BT X4 LAST B/M UNKNOWN TO PT. IN VEST TRIES TO GET OUT OF BED AND IS WEAK. FALL RISK. BED IN LOW POSITIOIN, CALL LITE IN REACH, VEST AND BED ALARM ON FOR SAFETY
[2022-01-02 09:39] LABS: Anion Gap 5 mmol/L (6-16); Blood Urea Nitrogen 8 mg/dL (8-24); Bun/Creatinine Ratio 15.8 (12.0-20.0); CO2, Blood 26 mmol/L (21-32); Chloride, Blood 109 mmol/L (98-108); Creatinine, Blood 0.51 mg/dL (0.40-1.00); Glomerular Filtration Rate >60 (60-); Glucose, Blood 133 mg/dL (70-99); Magnesium, Blood 1.5 mg/dL (1.6-2.4); Phosphorus, Blood 2.7 mg/dL (2.5-4.9); Potassium, Blood 3.6 mmol/L (3.5-5.5); Sodium, Blood 140 mmol/L (136-145)
--- NOTE | 2022-01-02 12:04 | NUR ---
DR AYON STATES TRY TO KEEP OFF ATIVAN, OFF BENZO'S, PREFER VISTARIL FOR AGITATION. TOO SLEEPY. OKAY D/C THE CWA'S, HAS BEEN HERE LONG TIME.
--- NOTE | 2022-01-02 15:15 | NUR ---
Spiritual Care Attempted Pt. is awake but her movements are super slow and she was entirely non-verbal. Pt. displayed evidence of visceral pain, but this sieve maker cannot be certain as to the cause of the pts. slow movement and non verbal responses. Pt. displayed evidence of relaxing when I offered to pray for her. Prayed for Pt. There was essentially no feedback from pt. though she was consicous the entire visit. This sieve maker excused himself.
--- NOTE | 2022-01-02 17:16 | NUR ---
PT DISTANT, SLOW, CONFUSED. IS IN POSY VEST ATTEMPTING TO GET OUT OF BED. IS ON MONITOR. DAUGHTER STATES THAT THIS HAPPENED LAST TIME WAS IN ICU. LASTED ABOUT A MONTH BEFORE WAS UP WALKING. SEEMS TO TAKE A LONG TIME PER JAGRUTI. DID SPEAK TO PT AND DISCUSS THAT PERHAPS ALCOHOL WAS NOT WORKING WELL WITH HER SYSTEM AND MIGHT DO BETTER TO LOOK AT DIFFERENT LIFESTYLE CHANGES. SUGGESTED THAT HER BODY SEEMS TO BE TELLING HER MIGHT BE GOOD TIME TO CHANGE. SHE LISTENED, NODDED BUT NO VERBAL CONFIRM. DISCUSSED WE ARE HERE TO HELP AND ASSIST HER, AND OFFERED THAT CAN BRING IN SPIRITUAL SUPPORT AT ANY TIME. STATES NOT TODAY. NO NEW CONCERNS NOTED. DR AYON IS HOLDING SEDATING MEDS AT THIS TIME. BED IN LOW POSITION, CALLLITE IN REACH, BED ALARM ON FOR SAFETY, POSY AND MONITOR FOR SAFETY.
[2022-01-03 06:05] LABS: Alanine Aminotransfer (ALT/SGP 27 U/L (12-78); Albumin, Blood 1.7 g/dL (3.4-5.0); Albumin/Globulin Ratio 0.4 (0.8-1.8); Alk Phos 67 U/L (50-136); Anion Gap 6 mmol/L (6-16); Aspartate Aminotrans (AST/SGOT 73 U/L (12-37); Bilirubin, Total 4.2 mg/dL (0.1-1.0); Blood Urea Nitrogen 8 mg/dL (8-24); Bun/Creatinine Ratio 18.1 (12.0-20.0); CO2, Blood 26 mmol/L (21-32); Calcium, Blood 8.3 mg/dL (8.5-10.1); Chloride, Blood 110 mmol/L (98-108); Creatinine, Blood 0.44 mg/dL (0.40-1.00); Glomerular Filtration Rate >60 (60-); Glucose, Blood 79 mg/dL (70-99); Potassium, Blood 3.3 mmol/L (3.5-5.5); Sodium, Blood 142 mmol/L (136-145); Total Protein, Blood 5.7 g/dL (6.4-8.2)
--- NOTE | 2022-01-03 06:44 | NUR ---
PT IS ASLEEP THIS MORNING. PT IS VERY QUIET AND MUTE, PT DOES NOT ANSWER QUESTIONS NOR SHOWS THE DESIRE TO SPEAK TO STAFF. ATTEMPTED TO GIVE THE PT HER MEDS IN THE EVENING AND MORNING BUT PT WAS NOT COOPERATIVE IN TAKING THEM. PT HAS A VERY FLAT AFFECT. PT WAS AGITATED DURING THE BEGINNING OF SHIFT BUT DID NOT TRY TO GET OUT BED OVERNIGHT. STARTED TRIALS WITHOUT MUNIRA VEST AT 0400, SO FAR PT IS DOING WELL. NO ACUTE EVENTS OVERNIGHT. CALL LIGHT WITHIN REACH.
--- NOTE | 2022-01-03 09:00 | NUR ---
PT HAS LIGHT RASH ON ABD. DISCUSSED AND VISUALIZED BY DR WHITING. NO NEW ORDRES. PT ALERT TO SELF, VERY SLOW TO RESPOND. BARELY TALKS AT ALL. H/R REG, NO MURMER NOTED. NO TELE. LUNGS CLEAR, REPS EASY, UNLABORED. ON R/A. BT X4 LAST BM LAST NITE. DIARRHEA, ON LACTULOSE AT THIS TIME. VOIDS INCONT. IN ATTENDS. CDI AT THIS TIME. RESTRAINTS OFF LAST NITE. BED IN LOW POSITION, CA LL LITE IN REACH, BED ALARM ON FOR SAFETY
--- NOTE | 2022-01-03 16:11 | NUR ---
PT SLOWLY IMPROVING TODAY. HAS BEEN TALKING LITTLE BITS MORE. HAS STAND PIVOT TO BSC WITH COUPLE SHUFFLE STEPS TO ACCOMPLISH. STATES WANTS TO GO HOME. DR IS ORDERING CLINIMEX AGAIN. PT HAS BEEN OUT OF RESTRAINTS, BUT IS ON MONITOR AND BED ALARM FOR SFAETY. BED IN LOW POSITION, CALL LITE IN REACH,
--- NOTE | 2022-01-04 03:04 | NUR ---
PT HAS BEEN VERY IRRATABLE, UNCOOPERATIVE, AND MAKING INAPPROPRIATE STATEMENTS OVERNIGHT. PT WAS PUT BACK ON THE MUNIRA VEST DUE TO THE PT CONSISTENTLY TRYING TO GET UP FROM THE BED. PT HAS BEEN SCREAMING OUT AND TRYING TO SLIDE OUT OF THE VEST ALL NIGHT. OF NOW MUNIRA WILL REMAIN, WILL CONTINUE TO MONITOR.
[2022-01-04 06:14] LABS: Alanine Aminotransfer (ALT/SGP 31 U/L (12-78); Albumin/Globulin Ratio 0.4 (0.8-1.8); Alk Phos 96 U/L (50-136); Anion Gap 5 mmol/L (6-16); Aspartate Aminotrans (AST/SGOT 77 U/L (12-37); Bilirubin, Total 3.5 mg/dL (0.1-1.0); Blood Urea Nitrogen 8 mg/dL (8-24); Bun/Creatinine Ratio 19.7 (12.0-20.0); CO2, Blood 26 mmol/L (21-32); Calcium, Blood 8.7 mg/dL (8.5-10.1); Chloride, Blood 110 mmol/L (98-108); Creatinine, Blood 0.41 mg/dL (0.40-1.00); Globulin, Blood 4.5 g/dL (2.2-4.0); Glomerular Filtration Rate >60 (60-); Glucose, Blood 140 mg/dL (70-99); Potassium, Blood 3.5 mmol/L (3.5-5.5); Sodium, Blood 141 mmol/L (136-145); Total Protein, Blood 6.5 g/dL (6.4-8.2)
[2022-01-04 08:34] LABS: Magnesium, Blood 1.6 mg/dL (1.6-2.4); Phosphorus, Blood 2.9 mg/dL (2.5-4.9)
--- NOTE | 2022-01-04 11:31 | NUR ---
UPDATED MOMPOLI, ON PATIENT CONDITION.
--- NOTE | 2022-01-04 15:25 | NUR ---
ALERT TO SELF. WHEN ASKED QUESTION PATIENT MOST OF TIME JUST STARES. WILL RESPOND INFREQUENTLY WITH ONE WORD ANSWER- "NO", "CHAP STICK", "BACK". POOR APPETITE. WILL NOT EAT SOLID FOOD, BUT WILL DRINK LIQUID WHEN STRAW PLACED IN HER MOUTH. HEAVY 2 PERSON ASSIST FROM BED. MUNIRA VEST ON CAN BE IMPULSIVE AND VERY WEAK. TPN INFUSING IN PICC LINE . UNLABORED RESPIRATIONS. TM
--- NOTE | 2022-01-04 18:04 | NUR ---
PATIENT WAS YELLING, AGITATED. TELLS FLIGHT ATTENDANT INFLIGHT SERVICES "SOMEONE TOOK MY MONEY." HAS ONLY RESPONDED WITH ONE WORD ANSWERS MOST OF SHIFT TILL NOW. WANTS TO GO HOME. WHEN TOLD SHE CAN NOT STAND ON HER OWN, PATIENT GETS UPSET. PATIENT IS A HEAVY 2 PERSON ASSIST TO CHAIR. PATIENT DOES NOT FOLLOW DIRECTIONS AND BARELY STANDS. FLIGHT ATTENDANT INFLIGHT SERVICES ON TODAY WAS ON YESTERDAY AND STS THIS IS THE WAY SHE WAS YESTERDAY. PATIENT LAYS IN BED AND SCREAMS. [facility]
--- NOTE | 2022-01-05 04:39 | NUR ---
SHIFT SUMMARY PATIENT HAD NO ACUTE CHANGES OBSERVED. ALERT TO SELF AND BEDREST. REFUSED ENULOSE. PICC LINE INTACT. TPN INFUSING AT 50mL/HR. CBG 221. VSS/AFEBRILE. NO S/SX OF PAIN, SOB, AND N/V. RESTRAINTS PER ORDER FOR OOB ATTEMPTS, IMPULISVE. WILL YELL/SCREAM ON/OFF T/O SHIFT. LESS THIS SHIFT. MOSTLY NON-VERBAL, STARING WHEN ASKED A QUESTION OR YES/NO ANSWERS. CALL LIGHT IN REACH. BED IN LOWEST POSITION. WILL CONTINUE TO MONITOR UNTIL DAY SHIFT NURSE ASSUMES CARE.
[2022-01-05 09:18] LABS: Magnesium, Blood 1.7 mg/dL (1.6-2.4); Phosphorus, Blood 3.6 mg/dL (2.5-4.9)
--- NOTE | 2022-01-05 13:42 | NUR ---
DR. TEJAS WHITING WAS CALLED AT 1342 TO UPDATE PROVIDER ON CURRENT PATIENT STATUS WITH STABLE VITALS BUT MORE LETHARGIC COMPARED TO AM. PATIENT WAS ABLE TO TAKE PO MEDS THIS AM HOWEVER PATIENT NOT ABLE TO DRINK LACTULOSE THIS AFTERNOON. DUE TO WEAKNESS/TIREDNESS. PROVIDER ORDERED TO BLADDER SCAN AND NOTIFY FOR RETENTION OR ANY OTHER ACUTE CHANGES.
--- NOTE | 2022-01-05 14:32 | NUR ---
PATIENT WAS ABLE TO TAKE MEDS WHOLE AND DRINK SOME ENSURE. PATIENT IS NOW OUT OF RESTRAINTS AND IS RESPONSIVE TO VOICE AND LIGHT TOUCH. PATIENT IS TOO WEAK/TIRED TO DRINK THIS AFTERNOON. MD AWARE BLADDER SCAN DONE AND ONLY 121ML FOUND ON BLADDER SCAN.
--- NOTE | 2022-01-05 18:16 | NUR ---
DR. TEJAS WHITING CALLED AT 1730 DUE TO AGGITATION AND SCREAMING AND GETTING OUT OF BED. PRN ZYPREXA 5MG PO Q6H FOR ANXIETY GIVEN. PATIENT HAD NO THERAPUETIC EFFECTS AND WAS CALLED AT 1810 AND AN ORDER OF 2MG HALDOL ONCE FOR AGGITATION IM ONCE WAS ORDERED.
--- NOTE | 2022-01-05 19:04 | NUR ---
DR. TEJAS WHITING WAS CALLED AT 0645 AND NOTIFIED THAT PATIENT CONTINUES TO PULLS AT LINES AND TRYS TO ROLL OVER BED RAILS. PROVIDER ORDERED VEST RESTRAINTS AND BED RAILS 4X FOR 24HRS.
--- NOTE | 2022-01-06 05:35 | NUR ---
PT IS AWAKE THIS MORNING, PT WAS RETLESS AND AGITATED OVERNIGHT. PT WAS PLACED BACK IN MUNIRA VEST DUE TO HER BEING IMPULSIVE AND TRYING TO GET OUT OF BED. PT DID LET ME GIVE HER HER PM DOSE OF LACTULOSE. PT IS TALKING A LOT MORE AND STILL SCREAMS/YELLS OUT AT TIMES BUT HAS DECREASED FROM THE PAST COUPLE OF DAYS. ALERT AND ORIENTED X1-2, ON RA SATTING >95, NO MONITORED, PT OFF TPN TONIGHT. PT CALL LIGHT AND BELONGINGS WITHIN REACH.
[2022-01-06 09:00] LABS: Magnesium, Blood 1.4 mg/dL (1.6-2.4); Phosphorus, Blood 3.6 mg/dL (2.5-4.9)
--- NOTE | 2022-01-06 15:08 | NUR ---
Spiritual Care Attempted. Pt. is sound asleep. Will attempt at another time.
--- NOTE | 2022-01-06 18:29 | NUR ---
SHIFT SUMMARY PT [id number], SELF. PT SLEEPING MOST OF THIS SHIFT. PT WOKE BRIEFLY FOR EATING BREAKFAST AND DINNER. DAUGHTER CAME IN FOR VISIT AND PT DID NOT WAKE UP. THERAPY WAS UNABLE TO WORK WITH HER D/T SOMNOLENCE. PT IS CURRENTLY SITTING UP IN BED EATING DINNER WITH ASSIST FROM FOREST LANDSCAPE ECOLOGY PROFESSOR. COOPERATIVE WITH CARE. MUNIRA RESTRAINT IN PLACE. DOCUMENTATION UP TO DATE. VITALS REVIEWED. CALL LIGHT IN REACH. CURRENT PLAN OF CARE IS FOR PT TO DC TO SNF, LOCATION/TIME PENDING.
--- NOTE | 2022-01-07 04:23 | NUR ---
SHIFT SUMMARY ADMITTED FOR ALCOHOL WITHDRAWAL. FULL CODE. PLAN IS FOR DC TO SNF, FAMILY REQUESTS NEAR TO [place]. SHE IS INCONTINENT, REPORTED TO BE A HEAVY WETTER DURING THE DAY. PICC LINE IN RUE. SHE IS IN A MUNIRA W/4 RAILS UP DUE TO BEING IMPULSIVE AND CONFUSED. SHE SCREAMS OUT THAT SHE WANTS TO GET UP. SHE IS ACHS GLUCOSE MONITORING. LOW SS. NO INSULIN REQUIRED THIS SHIFT. SHE IS A FEEDER, [facility] SOFT/GRND MEAT DIET.
--- NOTE | 2022-01-07 12:13 | NUR ---
AM NOTE. PT HAS BEEN QUIET THIS MORNING. ABLE TO TELL ME HER NAME, BUT NOT MOVING AROUND A LOT. TURNED Q2HRS. INCONTINENT OF URINE TO DIAPER. SKIN CARE DONE. TOOK LACTULOSE THIS AM, BUT I HAD TO GIVE IT WITH A SPOON. S/B CRAFT DEMONSTRATOR WHO TOLD ME HER CALORIE COUNT IS ACCEPTABLE. MUNIRA FLOYD DC'D AT 1130 PT NOT TRYING TO GET OUT OF BED. MONITOR PERSON INFORMED AND MONITORING FOR SAFETY CONTINUES.
--- NOTE | 2022-01-07 12:32 | NUR ---
NOTE PICC LINE DRESSING NEEDS TO BE CHANGED. SOME OLD BLOOD UNDER TRANSPARENT DRESSING. WILL LOOK TO CHANGE DRESSING THIS SHIFT.
--- NOTE | 2022-01-07 12:53 | NUR ---
MD NOTIFY DR WHITING CALLED - PT IS STILL VERY GROGGY. SHE OPENS HER EYES WHEN I SPEAK LOUDLY TO HER, BUT IS NOT VERBALISING,I HAVE TOUCHED PRESSURE TO HER CHEST TO GET A REACTION AT TIMES. I WAS CONCERNED I THOUGHT SHE MIGHT HAVE WOKEN UP MORE THROUGHOUT DAY, SINCE DR WHITING SAW PT THIS MORNING. DR WHITING SAID THAT THIS IS NORMAL BEHAVIOUS FOR MS LIANG, AND THAT IT IS NOT A CONCERN AT THIS TIME.
--- NOTE | 2022-01-07 17:01 | NUR ---
RESTRAINTS MS LIANG GOT MORE ALERT AND TRED TO GET OUT OF BED, SETTING OFF THE BED ALARM SEVERAL TIMES BEFORE A MUNIRA VEST AND [address] WHITING CALLED TO UPDATE ON STATUS AND SHE GAVE ME A TELEPHONE ORDER FOR THE RESTRAINT PLACEMENT.
--- NOTE | 2022-01-07 18:13 | NUR ---
SHIFT NOTE MS LIANG HAS BEEN QUIET, MOSTLY NON VERBAL THIS SHIFT, ORIENTATED TO SELF WHEN SHE TALKS. TRIAL WITHOUT RETRAINT EARLIER, BUT MUNIRA RESTRAINT AND 4 SIDE RAILS UP REORDERED AFTER PT GOT AGGITATED AND KEPT TRYING TO GET OUT OF BED. SHE REMAINS A BIT SQUIRMY IN BED, BUT SEEMS SAFE AT THIS TIME. INCONTINENT OF URINE TO DIAPER. POOR PO INTAKE, ASSISTANCE GIVEN TO EAT AND DRINK. BED LOW, CALL LIGHT IN REACH.
--- NOTE | 2022-01-08 04:24 | NUR ---
SHIFT SUMMARY ADMITTED FOR ETOH WITHDRAWAL FROM [facility]. FULL CODE. PLAN IS FOR PLACEMENT, FAMILY PREFERS FACILITY NEAR [place]. SHE WAS TRANSFERED TO [facility] DIET ON PREVIOUS SHIFT, SHE IS A FEEDER. PICC LINE IN RUE. MUNIRA VEST & 4 RAILS UP. SHE IS IMPULSIVE. BED ALARM IS ON. SHE CALLS OUT FOR "MOM". SHE MUMBLES INCOHERENTLY AT TIMES. SHE MANAGES TO REPOSITION HERSELF IN BED FREQUENTLY. WE HAVE STILL BEEN USING PILLOWS TO REPOSITION HER WELL. SHE IS INCONTINENT. SHE IS ACHS, LOW SS. INSULIN COVERAGE HAS NOT BEEN NECESSARY. SHE IS ON RA.
[2022-01-08 05:20] LABS: BASOPHILS ABSOLUTE AUTO 0.05 K/mm3 (0.00-0.23); BASOPHILS PERCENT AUTO 1 % (0-2); EOSINOPHILS ABSOLUTE AUTO 0.13 K/mm3 (0.00-0.68); EOSINOPHILS PERCENT AUTO 3 % (0-6); Hematocrit 30.9 % (33.0-51.0); Hemoglobin 10.4 g/dL (11.5-16.0); IMMATURE GRAN ABSOLUTE AUTO 0.01 K/mm3 (0.00-0.10); IMMATURE GRAN PERCENT AUTO 0 % (0-1); LYMPHOCYTES ABSOLUTE AUTO 1.53 K/mm3 (0.84-5.20); LYMPHOCYTES PERCENT AUTO 38 % (21-46); MONOCYTES ABSOLUTE AUTO 0.59 K/mm3 (0.16-1.47); MONOCYTES PERCENT AUTO 15 % (4-13); Mean Corpuscular HGB 32.2 pg (26.0-34.0); Mean Corpuscular HGB Conc 33.7 g/dL (31.5-36.5); Mean Corpuscular Volume 96 fL (80-100); Mean Platelet Volume 11.2 fL (9.1-12.4); NEUTROPHILS ABSOLUTE AUTO 1.69 K/mm3 (1.96-9.15); NEUTROPHILS PERCENT AUTO 42 % (41-73); Platelet Count 51 K/mm3 (150-400); RDW Coefficient Variation 16.6 % (11.7-14.2); RDW Standard Deviation 57.3 fL (35.1-46.3); Red Blood Cell Count 3.23 M/mm3 (3.80-5.20)
[2022-01-08 05:40] LABS: Alanine Aminotransfer (ALT/SGP 32 U/L (12-78); Albumin, Blood 1.9 g/dL (3.4-5.0); Albumin/Globulin Ratio 0.4 (0.8-1.8); Alk Phos 73 U/L (50-136); Anion Gap 5 mmol/L (6-16); Aspartate Aminotrans (AST/SGOT 71 U/L (12-37); Bilirubin, Total 3.6 mg/dL (0.1-1.0); Blood Urea Nitrogen 8 mg/dL (8-24); Bun/Creatinine Ratio 16.4 (12.0-20.0); CO2, Blood 25 mmol/L (21-32); Calcium, Blood 8.6 mg/dL (8.5-10.1); Chloride, Blood 111 mmol/L (98-108); Creatinine, Blood 0.49 mg/dL (0.40-1.00); Globulin, Blood 4.6 g/dL (2.2-4.0); Glomerular Filtration Rate >60 (60-); Glucose, Blood 90 mg/dL (70-99); Magnesium, Blood 1.4 mg/dL (1.6-2.4); Potassium, Blood 3.4 mmol/L (3.5-5.5); Sodium, Blood 141 mmol/L (136-145); Total Protein, Blood 6.5 g/dL (6.4-8.2)
--- NOTE | 2022-01-08 07:55 | NUR ---
PT NON VERBAL AT THIS TIME, BUT OPWNS EYES IN RESPONSE TO VOICE. FOLLOWS ME WITH HER EYES, BUT DOES NOT FOLLOW INSTRUCTIONS LIKE SQUEEZE ME HANDS ETC. MUNIRA VEST IN PLACE AT THIS TIME, WILL CONTINUE TO ASSESS. BED LOW, CALL LIGHT IN REACH.
--- NOTE | 2022-01-08 16:51 | NUR ---
2ND LACTULOSE ENEMA GIVEN. NO BM FROM THIS ONE YET, BUT HE DID WAKE UP, SPOKE A FEW WORDS, HAD A FEW SIPS TO DRINK. ENCOURAGED TO DRINK ENSURE.
--- NOTE | 2022-01-08 17:32 | NUR ---
SHIFT NOTE. PT HAS BEEN MOSTLY NON VERBAL TODAY, OPENING HER EYES TO STIMULI, BUT NOT FOLLOWING INSTRUCTIONS. S/B DR BONILLA AND LACTULOSE ENEMA ORDERED PT UNABLE TO TAKE PO LACTULOSE TODAY. 2 LACTULOSE ENEMAS GIVEN. 1 NORMAL SOFT BM, ONE LARGE UNFORMED BOWEL MOVEMENT. AFTER 2ND ENEMA PT DID OPEN HER EYES AND SPEAK A FEW WORDS TO ME. SHE SAID SHE WAS THIRSTY AND WAS GIVEN FLUIDS/ ENSURE. MUNIRA RESTRAINT AND 4 SIDE RAILS REMOVED PT QUIET, ROOM CAMERA MONITOR ON. BED LOW, CALL LIGHT IN REACH, BED ALARM ON.
--- NOTE | 2022-01-09 04:46 | NUR ---
SHIFT SUMMARY: BEGINNING OF SHIFT PT APPEARED VERY LETHARGIC AND WAS NONVERBAL. THROUGHOUT SHIFT PATIENT BECAME MORE AWAKE, INCREASED RESTLESSNESS AND HAD INCREASED VERBAL COMMUNICATION. OCCASSIONAL YES AND NO RESPONSES TO FULL SENTENCES. PRN ANTI-ANXIETY MEDICATION ADMINISTERED FOR RESTLESSNESS. Q2 TURN AND REPOSITIONING, 2 PERSON ASSIST. LARGE BOWEL MOVEMENT THIS SHIFT AND 2 LARGE INCONTINENT URINE EPISODES. BED ALARM ACTIVATED, BED IN LOW POSITION, CALL LUCERO IN REACH, CAMERA MONITORING.
--- NOTE | 2022-01-09 15:30 | NUR ---
RN NOTE - MS LIANG IS MORE AWAKE TODAY, STILL SLEEPY AT TIMES, BUT ABLE TO TALK WITH ME IN SHORT SENTENCES, ABLE TO FOLLOW SIMPLE INSTRUCTIONS LIKE SQUEEZE MY HANDS, WIGGLE HER TOES, SWALLOWING WELL WITH PROMPTING. SHE JUST TOLD ME SHE WAS THIRSTY AND DRANK 120MLS APPLE JUICE WITHOUT ANY SWALLOWING PROBLEMS. SITTING UPRIGHT TO DRINK. S/B RASHAWN THERAPIST THIS MORNING. HER DAUGHTERS ARE HERE AT THE BEDSIDE AND WOULD LIKE TO DISCUSS PLAN TO GET PT UP TO [facility] MESSAGE LEFT FOR CARE MANAGEMENT THAT FAMILY ARE IN THE ROOM AND WOULD LIKE TO TALK. ROOM CAMERA MONITOR STILL ON FOR PT SAFETY. BED LOW, CALL LIGHT IN REACH. BED ALARM ON.
--- NOTE | 2022-01-09 18:25 | NUR ---
SHIFT SUMMARY - SEE RN NOTE FROM TODAY. UPDATE SINCE NOTE. PT HAD 2 LARGE BMS TODAY. MENTATING BETTER BUT STILL CONFUSED SO 1800 LACTULOSE WAS GIVEN SCHEDULED (TITRATE FOR 2-3 BM'S/DAY). ROOM CAMERA ON, PT DID WRIGGLE AROUND A LOT IN BED AND TOLD ME THAT SHE WANTS TO GET OOB TOP GO TO [facility]. WITH REOIENTATION AND CONVERSATION SHE DID AGREE TO STAY IN BED AT THIS TIME. TYLENOL GIVEN FOR CELESTIN. BED LOW, CALL LIGHT IN REACH, SR UPX3, BED ALARM ON.
--- NOTE | 2022-01-09 19:10 | NUR ---
PT BECAME SLIGHTLY AGGITATED AND WANTED TO GET UP OUT OF BED, BUT DIDNT WANT TO GET UP OUT OF BED. SHE WANTED TO SIT UP, AND LAY OWN. SHE WAS UNCLEAR TO WHAT SHE WANTED AND WAS GETTING MORE AGGITATED THAT STAFF WOULDNT HELP HER DO IT. IF LEFT ALONE THE PT ATTEMPTS TO GET UP BUT IS NOT ABLE TO DO SO SAFELY. MEDICATED WITH PRN ZYPREXA FOR AGGITATION.
--- NOTE | 2022-01-10 03:56 | NUR ---
PT CONFUSED AND SLOW TO ANSWER ANY QUESTIONS. WHEN TALKING TO THE PT THIS EVENING SHE WOULD STARE INTO THE DISTANCE AND MUMBLE. SHE WAS ABLE TO TELL ME HER NAME. PT UNABLE TO WAKE ENOUGH TO TAKE NIGHT DOSE OF LACTULOSE. WILL TRY TO GIVE HER A DOSE THIS AM. PT SLEEPING ALL NIGHT AND NO ACUTE CHANGES. CALL LIGHT IS WITHIN HER REACH.
--- NOTE | 2022-01-10 16:06 | NUR ---
DAY SHIFT SUMMARY 46 YR OLD FEMALE PT ADMITTED FOR ALCOHOL WITHDRAWL AND ALTERED MENTAL STATUS. PT IS CONFUSED AND ORIENTED TO SELF ONLY. NOT EASILY REDIRECTED. PT IS ON BEDREST AND ROOM AIR. PLAN TO DISCHARGE TO SNF ON WEDNESDAY PER MD. PT SPENT FIRST HALF OF SHIFT ASLEEP, SECOND HALF PT IS AWAKE AND DOES NOT WANT TO BE HERE. REPEATEDLY TRIES TO GET UP FROM BED BUT DOES NOT HAVE THE STRENGTH TO SUPPORT HER OWN WEIGHT AT THIS TIME. NEED FOR REDIRECTION TO STAY IN BED AND NOT RISK FALLS. BED ALARM IS ON, PT IS ON CAMERA. CALL LIGHT WITHIN REACH.
--- NOTE | 2022-01-10 17:10 | NUR ---
PT MEDICATED PER EMAR FOR AGITATION. PT YELLING INTO DIA FOR HELP STATING SHE IS BEING HELP CAPTIVE. PT ALSO ATTEMPTING REPEATEDLY TO GET OUT OF BED WITH SEQ DEVICE ATTACHED. PT IS NOT EASILY REDIRECTED AT THIS TIME.
--- NOTE | 2022-01-11 04:44 | NUR ---
SHIFT SUMMARY PT ALERT TO NAME, YEAR, AND STATES THE PRESIDENTS NOT BUT DOESN'T KNOW PLACE, TIME OR REASON THAT SHE IS HERE. SHE IS SLOW TO RESPOND BUT FOLLOWS SIMPLE COMMANDS AT TIMES. SHE HAD ATTEMPED TO GET OOB SEVERAL TIMES EARLY IN THE SHIFT AND WAS STATING THAT SHE WANTED TO GO HOME. SHE WAS MEDICATED ONCE FOR ANXIETY WITH VISTARIL PER DEC AND MED WAS EFFECTIVE.SHE WAS UP TO BSC WITH 2 PERSON ASSIST AND WAS WEAK. TURNED Q2 HRS AND BRIEF CHANGED PRN.NO C/O PAIN AND NO ACUTE DISTRESS THIS SHIFT.
[2022-01-11 05:35] LABS: BASOPHILS ABSOLUTE AUTO 0.05 K/mm3 (0.00-0.23); BASOPHILS PERCENT AUTO 1 % (0-2); EOSINOPHILS ABSOLUTE AUTO 0.15 K/mm3 (0.00-0.68); EOSINOPHILS PERCENT AUTO 4 % (0-6); Hemoglobin 10.8 g/dL (11.5-16.0); IMMATURE GRAN PERCENT AUTO 0 % (0-1); LYMPHOCYTES ABSOLUTE AUTO 1.65 K/mm3 (0.84-5.20); LYMPHOCYTES PERCENT AUTO 42 % (21-46); MONOCYTES ABSOLUTE AUTO 0.64 K/mm3 (0.16-1.47); MONOCYTES PERCENT AUTO 16 % (4-13); Mean Corpuscular HGB 32.5 pg (26.0-34.0); Mean Corpuscular HGB Conc 33.8 g/dL (31.5-36.5); Mean Corpuscular Volume 96 fL (80-100); Mean Platelet Volume 12.1 fL (9.1-12.4); NEUTROPHILS ABSOLUTE AUTO 1.44 K/mm3 (1.96-9.15); NEUTROPHILS PERCENT AUTO 37 % (41-73); RDW Coefficient Variation 16.4 % (11.7-14.2); RDW Standard Deviation 57.7 fL (35.1-46.3); Red Blood Cell Count 3.32 M/mm3 (3.80-5.20); White Blood Cell Count 3.93 K/mm3 (4.00-11.30)
[2022-01-11 05:43] LABS: Platelet Count 46 K/mm3 (150-400)
[2022-01-11 06:07] LABS: Alanine Aminotransfer (ALT/SGP 35 U/L (12-78); Albumin, Blood 1.8 g/dL (3.4-5.0); Albumin/Globulin Ratio 0.4 (0.8-1.8); Alk Phos 82 U/L (50-136); Anion Gap 4 mmol/L (6-16); Aspartate Aminotrans (AST/SGOT 73 U/L (12-37); Bilirubin, Total 2.7 mg/dL (0.1-1.0); Blood Urea Nitrogen 8 mg/dL (8-24); Bun/Creatinine Ratio 14.5 (12.0-20.0); CO2, Blood 27 mmol/L (21-32); Calcium, Blood 7.9 mg/dL (8.5-10.1); Chloride, Blood 111 mmol/L (98-108); Creatinine, Blood 0.55 mg/dL (0.40-1.00); Globulin, Blood 4.7 g/dL (2.2-4.0); Glomerular Filtration Rate >60 (60-); Glucose, Blood 93 mg/dL (70-99); Magnesium, Blood 1.4 mg/dL (1.6-2.4); Phosphorus, Blood 3.2 mg/dL (2.5-4.9); Potassium, Blood 3.2 mmol/L (3.5-5.5); Sodium, Blood 142 mmol/L (136-145); Total Protein, Blood 6.5 g/dL (6.4-8.2)
--- NOTE | 2022-01-11 16:55 | NUR ---
DAY SHIFT SUMMARY 46 YR OLD FEMALE PT WITH ALCHOL WITHDRAWL. PT IS A 2 ASSIST WITH WALKER TO BS. PT IS ON RA. ALERT AND ORIENTED TO SELF. DAUGHTER STATES POSSIBLE REHAB PLACEMENT IN [place] WHERE PT'S DAUGHTERS LIVE. CALL LIGHT WITHIN REACH BUT PT NOT ABLE TO CALL APPROPRIATELY. PT ON REMOTE MONITOR FOR FALL RISK AND BEHAVIOR. FREQUENT ROUNDING PROVIDED.
[2022-01-12 05:22] LABS: BASOPHILS ABSOLUTE AUTO 0.05 K/mm3 (0.00-0.23); BASOPHILS PERCENT AUTO 1 % (0-2); EOSINOPHILS PERCENT AUTO 5 % (0-6); Hematocrit 30.9 % (33.0-51.0); Hemoglobin 10.5 g/dL (11.5-16.0); IMMATURE GRAN ABSOLUTE AUTO 0.01 K/mm3 (0.00-0.10); IMMATURE GRAN PERCENT AUTO 0 % (0-1); LYMPHOCYTES ABSOLUTE AUTO 1.66 K/mm3 (0.84-5.20); LYMPHOCYTES PERCENT AUTO 44 % (21-46); MONOCYTES ABSOLUTE AUTO 0.59 K/mm3 (0.16-1.47); MONOCYTES PERCENT AUTO 15 % (4-13); Mean Corpuscular HGB 32.3 pg (26.0-34.0); Mean Corpuscular Volume 95 fL (80-100); Mean Platelet Volume 12.6 fL (9.1-12.4); NEUTROPHILS ABSOLUTE AUTO 1.31 K/mm3 (1.96-9.15); NEUTROPHILS PERCENT AUTO 34 % (41-73); RDW Coefficient Variation 16.1 % (11.7-14.2); RDW Standard Deviation 56.6 fL (35.1-46.3); Red Blood Cell Count 3.25 M/mm3 (3.80-5.20); White Blood Cell Count 3.82 K/mm3 (4.00-11.30)
[2022-01-12 05:30] LABS: Platelet Count 46 K/mm3 (150-400)
[2022-01-12 05:48] LABS: Alanine Aminotransfer (ALT/SGP 38 U/L (12-78); Albumin, Blood 1.8 g/dL (3.4-5.0); Albumin/Globulin Ratio 0.4 (0.8-1.8); Alk Phos 80 U/L (50-136); Anion Gap 4 mmol/L (6-16); Aspartate Aminotrans (AST/SGOT 78 U/L (12-37); Bilirubin, Total 2.7 mg/dL (0.1-1.0); Blood Urea Nitrogen 8 mg/dL (8-24); Bun/Creatinine Ratio 16.6 (12.0-20.0); CO2, Blood 27 mmol/L (21-32); Calcium, Blood 8.3 mg/dL (8.5-10.1); Chloride, Blood 111 mmol/L (98-108); Creatinine, Blood 0.48 mg/dL (0.40-1.00); Globulin, Blood 4.3 g/dL (2.2-4.0); Glomerular Filtration Rate >60 (60-); Glucose, Blood 88 mg/dL (70-99); Magnesium, Blood 1.6 mg/dL (1.6-2.4); Potassium, Blood 3.2 mmol/L (3.5-5.5); Sodium, Blood 142 mmol/L (136-145); Total Protein, Blood 6.1 g/dL (6.4-8.2)
--- NOTE | 2022-01-12 05:55 | NUR ---
SHIFT SUMMARY PT ALERT TO SELF AND STATED THAT SHE WAS AT THE HOSPITAL ONCE BUT DID NOT KNOW WHICH HOSPITAL. PT BECAME AGITATED AND WAS YELLING AND WAS COMBATIVE WITH STAFF AND WAS CLIMBING OUT OF BED. PT WAS UNABLE TO BE REORIENTED OR REDIRECTED AND JERONIMO SORIA WAS NOTIFIED AND RECEIVED AN ORDER TO PLACE A MUNIRA ON PT AT 2033 AND ALSO TO GIVE HALDOL 2.5MG X1 AND MED WAS EFFECTIVE.PT WAS LATER MEDICATED WITH MELATONIN BECAUSE SHE WAS STILL NOT ABLE TO SLEEP AND WAS RESTLESS AND MED WAS EFFECTIVE.PT WAS TURNED AND REPOSITIONED Q 2 HRS AND BRIEF CHANGED PRN. NO BM'S TONIGHT BUT HAS BEEN INCONTIENT OF URINE. NO ACUTE DISTRESS.
--- NOTE | 2022-01-12 08:18 | NUR ---
pt sitting up in the chair with posy vest in place, responds approp, flat affect follows some commands, states she feels ok today, lungs are clear t/o, resp even and unlabored, no cough noted, hrr, no edema noted, ppp+2, cap refill <3sec, vs stable, afebrile, iv site is picc line to boogie site is clear and patent, btx4, abd flat soft nontender, voids and has a brief in place, skin c/w/d, sasha laureano, call light in reach.
--- NOTE | 2022-01-12 14:47 | NUR ---
SISTER IN FROM [facility]. VISITING WITH PT.
--- NOTE | 2022-01-12 15:53 | NUR ---
ASSUMED CARE OF PT
--- NOTE | 2022-01-12 15:53 | NUR ---
1400 ASSUMED CARE OF PT
--- NOTE | 2022-01-12 16:57 | NUR ---
PT PLEASANT COOP THIS AFTERNOON. SISTER WAS IN TODAY. SHE NOT TALKING TO HER. BARELY TALKS TO ME, AND CONTINUES TO BE CONFUSED. SHE CONTIUES TO BE IN POSY ATTEMPTS TO GET UP AND IS NOT REDIRECTABLE. HIGH FALL RISK. IV FLUIDS RUNNING. BED INL LOW POSITION, CALLLITE IN REACH, BED ALARM ON FOR SAFETY
--- NOTE | 2022-01-13 04:25 | NUR ---
SHIFT SUMMARY PT ALERT AND ORIENTED TO SELF AND SHE STATED THAT SHE WAS AT THE HOSPITAL BUT DOESN'T KNOW THE NAME. SLOW TO REPOND TO QUESTIONS BUT DOES OBEYS SIMPLE COMMANDS. CTA AND IS ON RA. HRR.INCONTIENT AND BRIEF CHANGED PRN. NO BM THIS SHIFT. ABD SOFT WITH BS PRESENT. PT WAS RESTLESS AND MELATONIN WAS GIVEN PER DEC AND WAS EFFECTIVE. TURNED AND REPOSITION Q 2HRS. ORAL CARE DONE. SR UP X4 AND MUNIRA VEST CONTINUED PER NEW ORDER FROM DR. CROCKETT. NO ACUTE DISTRESS NOTED.
[2022-01-13 05:09] LABS: BASOPHILS ABSOLUTE AUTO 0.05 K/mm3 (0.00-0.23); BASOPHILS PERCENT AUTO 1 % (0-2); EOSINOPHILS ABSOLUTE AUTO 0.22 K/mm3 (0.00-0.68); EOSINOPHILS PERCENT AUTO 5 % (0-6); Hemoglobin 10.4 g/dL (11.5-16.0); IMMATURE GRAN ABSOLUTE AUTO 0.01 K/mm3 (0.00-0.10); IMMATURE GRAN PERCENT AUTO 0 % (0-1); LYMPHOCYTES PERCENT AUTO 41 % (21-46); MONOCYTES ABSOLUTE AUTO 0.76 K/mm3 (0.16-1.47); MONOCYTES PERCENT AUTO 17 % (4-13); Mean Corpuscular HGB 31.8 pg (26.0-34.0); Mean Corpuscular HGB Conc 33.5 g/dL (31.5-36.5); Mean Corpuscular Volume 95 fL (80-100); Mean Platelet Volume 12.4 fL (9.1-12.4); NEUTROPHILS ABSOLUTE AUTO 1.54 K/mm3 (1.96-9.15); NEUTROPHILS PERCENT AUTO 35 % (41-73); Red Blood Cell Count 3.27 M/mm3 (3.80-5.20); White Blood Cell Count 4.38 K/mm3 (4.00-11.30)
[2022-01-13 05:15] LABS: Platelet Count 41 K/mm3 (150-400)
[2022-01-13 05:39] LABS: Alanine Aminotransfer (ALT/SGP 36 U/L (12-78); Albumin, Blood 1.7 g/dL (3.4-5.0); Albumin/Globulin Ratio 0.4 (0.8-1.8); Alk Phos 85 U/L (50-136); Anion Gap 6 mmol/L (6-16); Aspartate Aminotrans (AST/SGOT 72 U/L (12-37); Bilirubin, Total 2.2 mg/dL (0.1-1.0); Blood Urea Nitrogen 11 mg/dL (8-24); Bun/Creatinine Ratio 23.9 (12.0-20.0); CO2, Blood 26 mmol/L (21-32); Calcium, Blood 8.4 mg/dL (8.5-10.1); Chloride, Blood 109 mmol/L (98-108); Creatinine, Blood 0.46 mg/dL (0.40-1.00); Globulin, Blood 4.5 g/dL (2.2-4.0); Glomerular Filtration Rate >60 (60-); Glucose, Blood 103 mg/dL (70-99); Magnesium, Blood 1.3 mg/dL (1.6-2.4); Potassium, Blood 3.4 mmol/L (3.5-5.5); Sodium, Blood 141 mmol/L (136-145); Total Protein, Blood 6.2 g/dL (6.4-8.2)
--- NOTE | 2022-01-13 19:41 | NUR ---
SHIFT SUMMARY: RESTRAINTS REMOVED AT 1217 TODAY. PT CONFUSED BUT COOPERATIVE THROUGHOUT THE DAY. MOOD BEGAN TO CHANGE AROUND CHANGE OF SHIFT: THOUGHT SHE WAS BEING DISCHARGED AND HAD TO GET READY TO BE PICKED UP. A&O TO SELF AND BD, KNOWS SHE IS IN [place] AND IN HOSPITAL. INCONTINENT OF B&B, ATTENDS N PLACE. HAS GOOD BED MOBILITY. TOLERATING MECH SOFT DIET. DID NOT HAVE TO MEDICATE FOR ANXIETY TODAY. SPOKE TO PT'S DAUGHTER IN [place], [place], GAVE UPDATE AFTER PT CALLED HER TO COME AND PICK HER UP. SHE IS AWAITING PLACEMENT, OR WILL GO HOME IF FAMILY WILLING TO TAKE HER.
--- NOTE | 2022-01-13 22:35 | NUR ---
HOSPITALIST DR WILSON ORDERED MUNIRA VEST AND FOUR RAIL. PATIENT MULTIPLE OOB ATTEMPTS. NOT REDIRECTABLE AND CONFUSED AT THIS TIME. FALL RISK.
--- NOTE | 2022-01-14 05:03 | NUR ---
SHIFT SUMMARY PATIENT HAD NO ACUTE CHANGES OBSERVED. MULTIPLE OOB ATTEMPTS. ON CMAERA. HOSPITALIST DR WILSON ORDERED MUNIRA VEST AND FOUR RAILS. POWERGLIDE BOBBY INTACT. CBG 113. VSS/AFEBRILE. DENIES PAIN, SOB, AND N/V. MELATONIN 5 MG GIVEN FOR INSOMNIA. ZYPREXA 5 MG GIVEN FOR AGITATION AND YELLING. CALL LIGHT IN REACH. BED IN LOWEST POSITION. WILL CONTINUE TO MONITOR UNTIL DAY SHIFT NURSE ASSUMES CARE.
[2022-01-14 05:05] LABS: BASOPHILS ABSOLUTE AUTO 0.05 K/mm3 (0.00-0.23); BASOPHILS PERCENT AUTO 1 % (0-2); EOSINOPHILS ABSOLUTE AUTO 0.24 K/mm3 (0.00-0.68); EOSINOPHILS PERCENT AUTO 5 % (0-6); Hematocrit 30.8 % (33.0-51.0); Hemoglobin 10.4 g/dL (11.5-16.0); IMMATURE GRAN ABSOLUTE AUTO 0.01 K/mm3 (0.00-0.10); IMMATURE GRAN PERCENT AUTO 0 % (0-1); LYMPHOCYTES ABSOLUTE AUTO 1.88 K/mm3 (0.84-5.20); LYMPHOCYTES PERCENT AUTO 42 % (21-46); MONOCYTES ABSOLUTE AUTO 0.65 K/mm3 (0.16-1.47); MONOCYTES PERCENT AUTO 15 % (4-13); Mean Corpuscular HGB 32.3 pg (26.0-34.0); Mean Corpuscular HGB Conc 33.8 g/dL (31.5-36.5); Mean Corpuscular Volume 96 fL (80-100); NEUTROPHILS ABSOLUTE AUTO 1.65 K/mm3 (1.96-9.15); NEUTROPHILS PERCENT AUTO 37 % (41-73); RDW Coefficient Variation 15.9 % (11.7-14.2); RDW Standard Deviation 55.9 fL (35.1-46.3); Red Blood Cell Count 3.22 M/mm3 (3.80-5.20); White Blood Cell Count 4.48 K/mm3 (4.00-11.30)
[2022-01-14 05:07] LABS: Platelet Count 46 K/mm3 (150-400)
[2022-01-14 05:08] LABS: Alanine Aminotransfer (ALT/SGP 33 U/L (12-78); Albumin, Blood 1.7 g/dL (3.4-5.0); Albumin/Globulin Ratio 0.4 (0.8-1.8); Alk Phos 80 U/L (50-136); Anion Gap 6 mmol/L (6-16); Aspartate Aminotrans (AST/SGOT 68 U/L (12-37); Bilirubin, Total 2.2 mg/dL (0.1-1.0); Blood Urea Nitrogen 8 mg/dL (8-24); Bun/Creatinine Ratio 18.2 (12.0-20.0); CO2, Blood 26 mmol/L (21-32); Calcium, Blood 8.3 mg/dL (8.5-10.1); Chloride, Blood 109 mmol/L (98-108); Creatinine, Blood 0.44 mg/dL (0.40-1.00); Globulin, Blood 4.4 g/dL (2.2-4.0); Glomerular Filtration Rate >60 (60-); Glucose, Blood 91 mg/dL (70-99); Magnesium, Blood 1.4 mg/dL (1.6-2.4); Potassium, Blood 3.4 mmol/L (3.5-5.5); Sodium, Blood 141 mmol/L (136-145); Total Protein, Blood 6.1 g/dL (6.4-8.2)
--- NOTE | 2022-01-14 05:28 | NUR ---
cL Plt: 46 UP FROM 41. DIRECTOR MOBILE NOTIFIED.
--- NOTE | 2022-01-14 18:11 | NUR ---
ASSUMED CARE OF PT AT START OF SHIFT TODAY. HAS BEEN QUITE SLEEPY/DROWSY THROUGHOUT ENTIRE SHIFT. AWAKENS WITH VERBAL & SLIGHT PHYSICAL STIMULATION (SHAKING OF THE ARMS). ATE SMALL AMOUNTS AT EACH MEAL, NEEDED TO BE FED. WAS ABLE TO REMAIN AWAKE TO SWALLOW MEDS. SAT UP IN TODAY FOR ABOUT 4 HOURS. HER DTRS CAME TO VISIT TODAY & MENTIONED SHE HAS BI-POLAR & WANTED TO KNOW IF SHE'S TAKING HER BI-POLAR MEDS. THEY MENTIONED LATUDA, WELLBUTRIN & GABAPENTIN BUT WASN'T SURE ABOUT THE OTHERS. DTR WILL BRING ALL HER MEDICATIONS ON WEDNESDAY FOR A FULL LIST OF HER BI-POLAR MEDS. SHE WAS ABLE TO GET UP TO USE THE RESTROOM USING A GAIT BELT WITH MOD ASSIST. GAIT SLOW BUT STRONG. SHE REMAINED DRY OF URINE ALL SHIFT. VSS. WAITING ON POSSIBLE SNF/REHAB PLACEMENT VS HOME DC.
[2022-01-15 05:11] LABS: BASOPHILS ABSOLUTE AUTO 0.05 K/mm3 (0.00-0.23); BASOPHILS PERCENT AUTO 1 % (0-2); EOSINOPHILS ABSOLUTE AUTO 0.23 K/mm3 (0.00-0.68); EOSINOPHILS PERCENT AUTO 5 % (0-6); Hematocrit 30.3 % (33.0-51.0); Hemoglobin 10.2 g/dL (11.5-16.0); IMMATURE GRAN ABSOLUTE AUTO 0.01 K/mm3 (0.00-0.10); IMMATURE GRAN PERCENT AUTO 0 % (0-1); LYMPHOCYTES ABSOLUTE AUTO 1.81 K/mm3 (0.84-5.20); LYMPHOCYTES PERCENT AUTO 39 % (21-46); MONOCYTES ABSOLUTE AUTO 0.78 K/mm3 (0.16-1.47); MONOCYTES PERCENT AUTO 17 % (4-13); Mean Corpuscular HGB 31.8 pg (26.0-34.0); Mean Corpuscular HGB Conc 33.7 g/dL (31.5-36.5); Mean Corpuscular Volume 94 fL (80-100); Mean Platelet Volume 12.6 fL (9.1-12.4); NEUTROPHILS ABSOLUTE AUTO 1.79 K/mm3 (1.96-9.15); NEUTROPHILS PERCENT AUTO 38 % (41-73); RDW Coefficient Variation 15.9 % (11.7-14.2); RDW Standard Deviation 55.3 fL (35.1-46.3); Red Blood Cell Count 3.21 M/mm3 (3.80-5.20); White Blood Cell Count 4.67 K/mm3 (4.00-11.30)
[2022-01-15 05:31] LABS: Alanine Aminotransfer (ALT/SGP 33 U/L (12-78); Albumin, Blood 1.8 g/dL (3.4-5.0); Albumin/Globulin Ratio 0.4 (0.8-1.8); Alk Phos 84 U/L (50-136); Anion Gap 5 mmol/L (6-16); Aspartate Aminotrans (AST/SGOT 63 U/L (12-37); Bilirubin, Total 2.1 mg/dL (0.1-1.0); Blood Urea Nitrogen 8 mg/dL (8-24); Bun/Creatinine Ratio 16.8 (12.0-20.0); CO2, Blood 26 mmol/L (21-32); Calcium, Blood 8.6 mg/dL (8.5-10.1); Chloride, Blood 109 mmol/L (98-108); Creatinine, Blood 0.48 mg/dL (0.40-1.00); Globulin, Blood 4.4 g/dL (2.2-4.0); Glomerular Filtration Rate >60 (60-); Glucose, Blood 109 mg/dL (70-99); Magnesium, Blood 1.6 mg/dL (1.6-2.4); Phosphorus, Blood 3.5 mg/dL (2.5-4.9); Potassium, Blood 3.7 mmol/L (3.5-5.5); Sodium, Blood 140 mmol/L (136-145); Total Protein, Blood 6.2 g/dL (6.4-8.2)
[2022-01-15 05:44] LABS: Platelet Count 46 K/mm3 (150-400)
--- NOTE | 2022-01-15 05:57 | NUR ---
46 YEAR OLD FEMALE ADMITTED OVER A MONTH AGO WITH ALCOHOL WITHDRAWL & HALLUCINATIONS DELUSIONS. PT CONTINUES JAUNDICED & HAVING ISSUES WITH SLOW ALTERED MENTATION. IMPULSIVE PT ON REMOTE CAMERA MONITORING. SEVERAL CALL FROM MONITOR THAT PT ATTEMPTING TO CLIMB OUT OF BED UNASSISTED. SHE AMB TO BR WITH 1 ASSIST GB & CUES. SHE IS UP THIS MORNING TO BSC & NEEDS EXTENSIVE ASSIST TO SIT IN BEDSIDE CHAIR. CRITICAL PLATELET LEVEL 46 THIS AM UP FROM 41 YESTERDAY.
--- NOTE | 2022-01-15 07:57 | NUR ---
Received report and assumed care of pt. Is up in the , appears to be sleeping.
--- NOTE | 2022-01-15 18:55 | NUR ---
PT MORE AWAKE & PARTICIPATORY WITH CARE. SHOWERED WITH ASSIST TODAY. IS ABLE TO USE RESTROOM WITH MIN ASSIST USING A GAIT BELT. VSS. HAD BM TODAY. CONTINUE TO WAIT FOR SNF PLACEMENT.
[2022-01-16 04:43] LABS: BASOPHILS ABSOLUTE AUTO 0.05 K/mm3 (0.00-0.23); BASOPHILS PERCENT AUTO 1 % (0-2); EOSINOPHILS ABSOLUTE AUTO 0.25 K/mm3 (0.00-0.68); EOSINOPHILS PERCENT AUTO 5 % (0-6); Hematocrit 30.9 % (33.0-51.0); Hemoglobin 10.5 g/dL (11.5-16.0); IMMATURE GRAN ABSOLUTE AUTO 0.01 K/mm3 (0.00-0.10); IMMATURE GRAN PERCENT AUTO 0 % (0-1); LYMPHOCYTES ABSOLUTE AUTO 1.83 K/mm3 (0.84-5.20); LYMPHOCYTES PERCENT AUTO 36 % (21-46); MONOCYTES ABSOLUTE AUTO 0.96 K/mm3 (0.16-1.47); MONOCYTES PERCENT AUTO 19 % (4-13); Mean Corpuscular HGB 32.1 pg (26.0-34.0); Mean Corpuscular Volume 95 fL (80-100); Mean Platelet Volume 11.7 fL (9.1-12.4); NEUTROPHILS PERCENT AUTO 39 % (41-73); RDW Coefficient Variation 15.8 % (11.7-14.2); RDW Standard Deviation 54.6 fL (35.1-46.3); Red Blood Cell Count 3.27 M/mm3 (3.80-5.20)
[2022-01-16 04:49] LABS: Platelet Count 47 K/mm3 (150-400)
[2022-01-16 04:59] LABS: Alanine Aminotransfer (ALT/SGP 31 U/L (12-78); Albumin, Blood 1.7 g/dL (3.4-5.0); Albumin/Globulin Ratio 0.4 (0.8-1.8); Alk Phos 106 U/L (50-136); Anion Gap 6 mmol/L (6-16); Aspartate Aminotrans (AST/SGOT 58 U/L (12-37); Bilirubin, Total 1.8 mg/dL (0.1-1.0); Blood Urea Nitrogen 7 mg/dL (8-24); CO2, Blood 27 mmol/L (21-32); Calcium, Blood 8.1 mg/dL (8.5-10.1); Chloride, Blood 106 mmol/L (98-108); Creatinine, Blood 0.44 mg/dL (0.40-1.00); Globulin, Blood 4.4 g/dL (2.2-4.0); Glomerular Filtration Rate >60 (60-); Glucose, Blood 185 mg/dL (70-99); Magnesium, Blood 1.5 mg/dL (1.6-2.4); Potassium, Blood 3.5 mmol/L (3.5-5.5); Sodium, Blood 139 mmol/L (136-145); Total Protein, Blood 6.1 g/dL (6.4-8.2)
--- NOTE | 2022-01-16 05:28 | NUR ---
SHIFT SUMMARY: PT IS A/OX1-2. FLAT AFFECT AND SLOW VERBAL RESPONSES. PICC BOBBY. RA. NO TELE. PT CONTINUES TO HAVE CHRONIC LOW PLATELETS, IS AWARE. PT'S FAMILY WILL COME IN TODAY WITH PT'S MOST CURRENT MEDICATIONS. SHE DOES NOT USE CALL LIGHT FOR ALL NEEDS AND A BED ALARM IS NEEDED. WE WILL CONTINUE TO MONITOR THE REMAINDER OF THE SHIFT.
--- NOTE | 2022-01-16 12:33 | NUR ---
PT WAS AGREEABLE & WORKED WITH PHYS THERAPY AND WALKED THE HALLS WITH A WALKER THEN UP IN AT BEDSIDE. INFORMED HER OF THE PLANS GOING FORWARD FOR POSSIBLE SNF PLACEMENT UNTIL STRONG ENOUGH TO GO HOME AND SHE WAS AGREEABLE TO THE PLAN. GAVE HER HER LUNCH TRAY AND SHE IS ATTEMPTING TO FEED HERSELF.
--- NOTE | 2022-01-16 14:24 | NUR ---
PT'S DTRS AT BEDSIDE VISITING. THEY BROUGHT THE PT'S HOME MEDICATIONS FOR CLARIFICATION OF HOME MEDS. PT SITTING UP IN AT BEDISDE VISITING. IS PLEASANT, COOPERATIVE AND PARTICIPATING IN HER CARE.
--- NOTE | 2022-01-16 17:51 | NUR ---
PT HAS BEEN PLEASANT, COOPERATIVE, PARTICIPATORY AND AGREEABLE TO ALL CARE THIS SHIFT. ASKING APPROPRIATE QUESTIONS. VSS. APPETITE GOOD AND AMBULATES WITH MIN ASSIST, WILL APPROPRIATELY USE THE WALKER IF NEEDED. SAT UP IN MAJORITY OF THE DAY. SITS IN FOR MEALS AND SHE HAS BEEN PROGRESSIVELY FEEDING HERSELF MORE AND MORE.
--- NOTE | 2022-01-17 04:34 | NUR ---
SHIFT SUMMARY: PT IS A/OX SELF. SHE HAS A FLAT AFFECT AND IS SLOW TO GIVE RESPONSES. SHE IS A SBA W/ FWW TO BR. SHE DOES NOT USE THE CALL LIGHT, SO BED ALARM HAS BEEN SET FOR PT SAFETY. WE WILL CONTINUE TO MONITOR THE REMAINDER OF THE SHIFT.
--- NOTE | 2022-01-17 18:55 | NUR ---
SHIFT SUMMARY PT AXO TO SELF, SLOW TO RESPOND AND SLEEPING THROUGHOUT THE SHIFT. COOPERATIVE WITH CARE. UP WITH 1 ASSIST FWW AND GB TO BATHROOM. UP TO CHAIR FOR MEALS. LOW BP NOTED THIS AM THOUGH UPON CHECKING BP HISTORY, IT APPEARS THAT THIS IS NORMAL FOR THIS PATIENT. CBG MEDICATED PER EMAR. NO ACUTE CHANGES THIS SHIFT. BED IN LOW POSITION, CALL LIGHT WITHIN REACH, BED ALARM ON.
--- NOTE | 2022-01-18 05:03 | NUR ---
Patient is alert and oriented x1 to self only. She keeps asking when she is going home. She is ambulatory, steady gait. No BM tonight, just gas. Patient follows commands. She is pleasant during assessment but gets agitated when she wakes up because she wants to go home. PRN seroquel given. Educated pt about diabetic diet, patient is not in the right mental state to understand proper diabetic diet. Patient attempted to take out picc. new dressing completed today, site is C/D/I. Call light within reach. Bed alarm on.
--- NOTE | 2022-01-18 12:00 | NUR ---
PATIENT STATUS AND D/C OF MATA: PATIENT REPORTS FEELING SLEEPY THIS MORNING AND THAT SHE "JUST NEEDS TO WAKE UP". PATIENT UP TO THE CHAIR FOR A LATE BREAKFAST. PATIENT IS A ONE ASSIST WITH FWW TO THE BATHROOM. ONE FORMED BM SO FAR TODAY. PATIENT IS SLOW TO RESPOND AND MOVE, BUT ABLE TO SPEAK WITH STAFF IN FULL SENTENCES. NOTED THAT THE PATIENT NO LONGER HAS A MATA, BUT THAT IT WAS NOT D/C'D CORRECTLY. PER I/O'S, THE MATA WAS PULLED ON 12/31. PATIENT DOES NOT HAVE A MATA AND IS VOIDING WITHOUT DIFFICULTY.
--- NOTE | 2022-01-18 19:53 | NUR ---
END OF SHIFT SUMMARY: PATIENT DENIED PAIN OR DISCOMFORT THROUGHOUT THE SHIFT. PATIENT DROWSY IN THE AM. SOME IMPROVEMENT DAY PROGRESSED. PATIENT UP TO CHAIR FOR MEALS WITH ONE ASSIST, GAIT BELT AND FWW. PATIENT ABLE TO MAKE NEEDS KNOWN AND ANSWERS QUESTIONS IN SHORT, BUT FULL SENTENCES. PATIENT SLOW TO RESPOND AND TO MOVE. PATIENT HAD ONE FORMED BOWEL MOVEMENT DURING DAY SHIFT. MEDICATED PER ORDERS WITH LACTULOSE. NOTIFIED NOC RN. PATIENT HAS A MINIMAL APPETITE, PREFERING GLUCERNA TO ANY OF HER MEALS. ENCOURAGED PO INTAKE.
[2022-01-19 04:56] LABS: Hematocrit 31.3 % (33.0-51.0); Hemoglobin 10.7 g/dL (11.5-16.0); Mean Corpuscular HGB 31.8 pg (26.0-34.0); Mean Corpuscular HGB Conc 34.2 g/dL (31.5-36.5); Mean Corpuscular Volume 93 fL (80-100); Mean Platelet Volume 11.8 fL (9.1-12.4); Platelet Count 51 K/mm3 (150-400); RDW Coefficient Variation 15.4 % (11.7-14.2); RDW Standard Deviation 52.7 fL (35.1-46.3); Red Blood Cell Count 3.37 M/mm3 (3.80-5.20); White Blood Cell Count 5.33 K/mm3 (4.00-11.30)
--- NOTE | 2022-01-19 04:58 | NUR ---
Patient is alert and oriented to self only. She is more calm tonight. One bowel movement tonight. No complains of pain. Patient is educated about diabetic diet. Glucerna provided. Patient is able to ambulate but unsteady. Call light within reach.
[2022-01-19 05:19] LABS: Alanine Aminotransfer (ALT/SGP 29 U/L (12-78); Albumin, Blood 1.8 g/dL (3.4-5.0); Albumin/Globulin Ratio 0.4 (0.8-1.8); Alk Phos 109 U/L (50-136); Anion Gap 6 mmol/L (6-16); Aspartate Aminotrans (AST/SGOT 59 U/L (12-37); Bilirubin, Total 1.7 mg/dL (0.1-1.0); Blood Urea Nitrogen 7 mg/dL (8-24); Bun/Creatinine Ratio 14.2 (12.0-20.0); CO2, Blood 28 mmol/L (21-32); Calcium, Blood 8.5 mg/dL (8.5-10.1); Chloride, Blood 102 mmol/L (98-108); Creatinine, Blood 0.49 mg/dL (0.40-1.00); Globulin, Blood 4.6 g/dL (2.2-4.0); Glomerular Filtration Rate >60 (60-); Glucose, Blood 243 mg/dL (70-99); Magnesium, Blood 1.5 mg/dL (1.6-2.4); Potassium, Blood 3.2 mmol/L (3.5-5.5); Sodium, Blood 136 mmol/L (136-145); Total Protein, Blood 6.4 g/dL (6.4-8.2)
--- NOTE | 2022-01-19 08:54 | NUR ---
MORNING STATUS: PATIENT UP TO THE CHAIR FOR BREAKFAST. PATIENT CONTINUES TO BE SLOW TO RESPOND AND SLOW TO MOVE. PATIENT CALM AND COOPERATIVE. PATIENT FOLLOWING COMMANDS AND INDEPENDENT WITH SOME CARE WITH SET-UP. FOR EXAMPLE, ABLE TO INDEPENDENTLY BRUSH TEETH WITH SUPPLIES LAID OUT. PATIENT IS PLESANT AND EASILY RE-ORIENTED TO TASK AT HAND.
--- NOTE | 2022-01-19 17:30 | NUR ---
END OF SHIFT SUMMARY: PATIENT CALM AND COOPERATIVE THROUGHOUT SHIFT. PATIENT DENIED PAIN. PATIENT CONTINUES TO BE SLEEPY, BUT AWAKENS EASILY WITH VERBAL CUES. PATIENT UP TO THE CHAIR FOR MEALS AND UP TO THE SHOWER. PATIENT USED CALL LIGHT ONE TIME APPROPRIATELY (RATHER THAN ATTEMPTING TO GET OUT OF RECLINER OR BED INDEPENDENTLY). PATIENT CONTINUES TO BE SLOW IN MOVEMENT AND RESPONSES. WHEN LIFTING HER MEDICATIONS TO HER MOUTH, MOVEMENT WAS SMOOTHER AND QUICKER THAN YESTERDAY. PATIENT ABLE TO MAKE NEEDS KNOWN WITH SHORT, BUT FULL SENTENCES. PATIENT CONTINUES TO PREFER GLUCERNA RATHER THAN SOLID FOOD CHOICES. PATIENT DENIES NAUSEA OR ABDOMINAL DISCOMFORT.
[2022-01-20 05:11] LABS: Hematocrit 30.8 % (33.0-51.0); Hemoglobin 10.4 g/dL (11.5-16.0); Mean Corpuscular HGB 31.7 pg (26.0-34.0); Mean Corpuscular HGB Conc 33.8 g/dL (31.5-36.5); Mean Corpuscular Volume 94 fL (80-100); Mean Platelet Volume 11.9 fL (9.1-12.4); Platelet Count 61 K/mm3 (150-400); RDW Coefficient Variation 15.5 % (11.7-14.2); Red Blood Cell Count 3.28 M/mm3 (3.80-5.20); White Blood Cell Count 5.81 K/mm3 (4.00-11.30)
[2022-01-20 05:30] LABS: Alanine Aminotransfer (ALT/SGP 26 U/L (12-78); Albumin, Blood 1.8 g/dL (3.4-5.0); Albumin/Globulin Ratio 0.4 (0.8-1.8); Alk Phos 92 U/L (50-136); Anion Gap 6 mmol/L (6-16); Aspartate Aminotrans (AST/SGOT 57 U/L (12-37); Bilirubin, Total 2.2 mg/dL (0.1-1.0); Blood Urea Nitrogen 5 mg/dL (8-24); Bun/Creatinine Ratio 10.3 (12.0-20.0); CO2, Blood 28 mmol/L (21-32); Calcium, Blood 8.3 mg/dL (8.5-10.1); Chloride, Blood 105 mmol/L (98-108); Creatinine, Blood 0.48 mg/dL (0.40-1.00); Globulin, Blood 4.5 g/dL (2.2-4.0); Glomerular Filtration Rate >60 (60-); Glucose, Blood 88 mg/dL (70-99); Magnesium, Blood 1.8 mg/dL (1.6-2.4); Potassium, Blood 3.2 mmol/L (3.5-5.5); Sodium, Blood 139 mmol/L (136-145); Total Protein, Blood 6.3 g/dL (6.4-8.2)
--- NOTE | 2022-01-20 06:37 | NUR ---
SUMMARY: PT A/O TO SELF AND FAMILY. SHE APPEARS DROWSY, WITHDRAWN AND SLIGHTLY DEPRESSED BUT IS WAKEFUL TO VOICE, ANSWERS Q'S APPROPRIATELY W/DELAYED RESPONSES AND IS PLEASANT AND COOPERATIVE W/CARE. BED ALARM REMAINS ON FOR WEAKNESS AND FALL RISK W/CAMERA MONITORING IN PLACE FOR IMPULSIVITY. SHE'S 1PA TO TOILET W/FWW AND GB, MOVEMENTS ARE SLOW BUT GAIT IS STEADY. LACTULOSE WAS RECIEVED PER EMAR FOR X2 BM'S THIS SHIFT AND GLUCERNA PROVIDED PER PT REQUEST. SHE MAY BENEFIT FROM [facility] D/T WEAKNESS AND DIFFICULTY BRINGING DRINKS AND FOOD TO MOUTH. NO ACUTE CHANGES, VSS/AFEBRILE. WCTM AND REPORT TO DAY RN.
--- NOTE | 2022-01-20 09:00 | NUR ---
PT PLEASANT THIS AM. NO C/O PAIN. ALERT TO SELF, SOME FAMILY. SLOW TO RESPOND. H/R REG, NO MURMER NOTED NO TELE. LUNGS CLEAR, RESP EASY, UNLABORED. ON RA. BT X4 LAST BM TODAY. 2 MOVEMENTS DIARRHEA. THIS AM. VOIDS 1 ASST TO BATHROON. BED IN LOW POSITION, CALL LITE IN REACH, BED ALARM ON FOR SAFETY
--- NOTE | 2022-01-20 18:35 | NUR ---
PT MARLYN COOP TODAY. DOES RESPOND QUITE SLOWLY, BUT SHE IS SOME BETTER THAN LAST 2 WEEKS. IS A/O X1-2 TODAY. AMBULATED DIA TODAY WITH PT/OT. WALKED TO BATHROOM WITH ME TWICE TODAY. I DID NOT NOTICE ANY FAMILY VISIT TODAY. NO NEW CONCERNS NOTED. GAVE ONE DOSE LACTULOSE ON MY SHIFT TODAY. 3 DIARRHEA STOOLS THIS AM. BED IN LOW POSITION, CALL LITE IN REACH, BED ALARM ON FOR SAFETY
--- NOTE | 2022-01-21 05:17 | NUR ---
SUMMARY: PT A/O TO SELF AND FAMILY, SPECIFIES NEEDS WHEN STAFF IN ROOM AND CALLS OCC FOR ASSIST PRN. CAMERA MONITORING IN PROGRESS AND BED ALARM ON FOR FALL RISK AND PT SAFETY. SPEECH IS DELAYED AND PT IS SLOW MOVING BUT SHE'S ABLE TO AMBULATE TO TOILET W/1PA AND FWW. LACTULOSE RECIEVED PER EMAR. PT APPEARS DROWSY, WITHDRAWN AND SLEPT MOST OF SHIFT BUT SHE'S WAKEFUL AND ANSWERS Q'S APPROPRIATELY. NO ACUTE CHANGES, VSS/AFEBRILE. SNF PLACMENT PENDING. WCTM AND REPORT TO DAY RN.
--- NOTE | 2022-01-21 11:55 | NUR ---
Spiritual Care Visit... Pt. is awake in bed. Pt. welcomes my visit. Pt. is able to verbalize conversation much better than my lst visit. Pt. is unsettled about some dynamics at home with her family. Prayed for Pt. Pt. displays evidence of comprehension. Pt. verbalized gratitude for the spiritual care visit.
--- NOTE | 2022-01-21 16:24 | NUR ---
PT DAUGHTER VIOLETTA CALLED AND REQUESTED THAT THE PT BE TRANSPORTED TO HER HOME IN [place]. SPOKE TO THE PT ABOUT THIS AND SHE WAS AGREEABLE TO THIS, AFTER PLACING A CALL TO THIS DAUGHTER, THE TRANSPORTATION WAS CHANGED.
--- NOTE | 2022-01-21 16:48 | NUR ---
DISCHARGE NOTE- PT WAS GIVEN VERBAL AND WRITTEN DISCHARGE INSTRUCTIONS AND ACKNOWLEDGED UNDERSTANDING OF THEM. PER HER DAUGHTER VIOLETTA'S REQUEST AND THE PT APPROVAL SHE WAS DISCHARGED HOME TODAY AND TRANSPORT WAS ARRANGED TO TAKE HER TO HER DAUGHTERS HOME IN [place]. PT PICC LINE WAS DC'D PRIOR TO DISCHARGE. PT WAS ESCORTED OUT VIA WC BY THE MANAGER [employer] WHERE SHE GOT INTO A TAXI INDEPENDENTLY. CALLED DAUGHTER ONCE PT LEFT IN THE TAXI. SHE IS AWARE.
== END 2022-01-21 16:40 | disposition home or self-care (01) | DRG 896 ==
LOC: ER 21:09 → MEDS 12-15 03:06 → ERHOLD 12-15 03:06 → ICUW 12-15 03:06 → PCU 12-27 14:42 → MEDS 12-31 16:00
PROVIDERS: Family Medicine; Internal Medicine; Internal Medicine Critical Care Medicine; Physician Assistant; ADMIT Internal Medicine
PROC: HZ2ZZZZ Detoxification Services for Substance Abuse Treatment (ICD-10-PCS; principal; 2021-12-15)
PROC: 3E033XZ Introduction of Vasopressor into Peripheral Vein, Percutaneous Approach (ICD-10-PCS; 2021-12-21)
PROC: 02HV33Z Insertion of Infusion Device into Superior Vena Cava, Percutaneous Approach (ICD-10-PCS; 2021-12-26)
DX: F10.239 Alcohol dependence with withdrawal, unspecified (principal); G92.8 Other toxic encephalopathy; R65.21 Severe sepsis with septic shock; A41.51 Sepsis due to Escherichia coli [E. coli]; G93.49 Other encephalopathy; E87.1 Hypo-osmolality and hyponatremia; N39.0 Urinary tract infection, site not specified; N17.9 Acute kidney failure, unspecified; E46 Unspecified protein-calorie malnutrition; E83.39 Other disorders of phosphorus metabolism; Z78.1 Physical restraint status; E83.42 Hypomagnesemia; E11.65 Type 2 diabetes mellitus with hyperglycemia; E88.09 Other disorders of plasma-protein metabolism, not elsewhere classified; F10.231 Alcohol dependence with withdrawal delirium; E83.51 Hypocalcemia; K72.90 Hepatic failure, unspecified without coma; E87.6 Hypokalemia; Z68.28 Body mass index [BMI] 28.0-28.9, adult; K70.30 Alcoholic cirrhosis of liver without ascites; D69.6 Thrombocytopenia, unspecified; I12.9 Hypertensive chronic kidney disease with stage 1 through stage 4 chronic kidney disease, or unspecified chronic kidney disease; E11.22 Type 2 diabetes mellitus with diabetic chronic kidney disease; D63.1 Anemia in chronic kidney disease; N18.30 Chronic kidney disease, stage 3 unspecified; Z87.891 Personal history of nicotine dependence; Z79.899 Other long term (current) drug therapy; Z88.1 Allergy status to other antibiotic agents; Z88.2 Allergy status to sulfonamides; Z88.8 Allergy status to other drugs, medicaments and biological substances
CPT/HCPCS: 36415; 36556; 36569; 51702; 70450; 71045; 76705; 80048; 80053; 80069; 81001; 81003; 82140; 82330; 82728; 82947; 83540; 83550; 83690; 83735; 84100; 84132; 84443; 84478; 85025; 85027; 85610; 87040; 87077; 87086; 87186; 92526; 92610; 93005; 93010; 93306; 95819; 96365; 96366; 96375; 97110; 97112; 97116; 97162; 97164; 97166; 97168; 97530; 97535; 99285; A9270; C1751; G0480; J0610; J0696; J1630; J1815; J2060; J2405; J3411; J3475; J3480; J7030; J7040; J7042; J7050; J7060; J7120; Q0177